=== PATIENT | female | born 1980 | race Caucasian/White ===

== ENCOUNTER 2016-11-15 20:50 | Emergency (ER) | payer OTHER ==
[2016-11-15 21:13] VITALS: BMI 34.1
--- NOTE | 2016-11-15 21:13 | PDOC ---
Rapid Medical Evaluation Time Seen by Provider: 11/15/16 21:07 Medical Evaluation: Allergies Allergy/AdvReac Type Severity Reaction Status Date / Time No Known Allergies Allergy Verified 08/29/16 06:45 11/15/16 21:10 36 yo F c/o urinary frequency/urgency with "my whole low back" pain with "fever "/did not take temp at home, "just felt hot". Took naprosyn at 2000hrs today. +H/O kidney infections
[2016-11-15 22:13] LABS: BASOPHIL 0.2 % (0-2.0); MCH 29.7 pg (25.7-33.7); MCHC 33.1 g/dl (32.0-36.0); MEAN CELL VOLUME 89.9 fl (80-96); MEAN PLT VOLUME 9.3 fl (7.5-11.1); NEUTROPHILS 85.7 % (42.8-82.8); PLATELET COUNT 241 K/MM3 (134-434); RDW 13.5 % (11.6-15.6); URINE APPEARANCE CLEAR; URINE BILIRUBIN NEGATIVE (NEGATIVE); URINE BLOOD NEGATIVE (NEGATIVE); URINE COLOR YELLOW; URINE GLUCOSE (UA) NEGATIVE (NEGATIVE); URINE KETONE NEGATIVE (NEGATIVE); URINE NITRITE NEGATIVE (NEGATIVE); URINE PROTEIN NEGATIVE (NEGATIVE); URINE UROBILINOGEN NEGATIVE E.U./dl (0.2-1.0); WHITE BLOOD COUNT 8.6 K/mm3 (4.0-10.0)
[2016-11-15 22:19] LABS: URINE LEUK ESTERASE 3+ (NEGATIVE)
[2016-11-15 22:21] LABS: URINE BACTERIA RARE /hpf (NONE SEEN); URINE HYALINE CAST 2 /lpf; URINE MUCUS RARE; URINE RBC 3 /hpf (0-3); URINE WBC 11 /hpf (3-5)
--- NOTE | 2016-11-15 22:25 | PDOC ---
History of Present Illness - General History Source: Patient Exam Limitations: No Limitations - History of Present Illness Initial Comments: 11/15/16 22:54 The patient is a 36 year old female, with a significant past medical history of cervical CA s/p total hysterectomy (03/2015), anemia and bilateral pyelonephritis , who presents to the emergency department with headache for a week. She reports that her headache is localized in the temporals bilaterally, that is moderate in severity, without radiation or modifying factors. She states that she had taken Tylenol during the week which mildly relieved her pain. She also states that she took Ibuprofen and Naproxen today which mildly relieved her pain. She also reports lower back pain that is associated with her chief complaint. She describes the pain as mild, without radiation or modifying factors. The patient denies chest pain, shortness of breath and dizziness. Denies fever, chills, nausea, vomit, diarrhea and constipation. Denies dysuria, frequency, urgency and hematuria. Allergies: None Past surgical history: Total Hysterectomy (03/2015) Social history: No alcohol, tobacco or drug use reported <Randall Gray - Last Filed: 11/16/16 00:38> <Roger Huerta - Last Filed: 11/16/16 00:58> - General Chief Complaint: SIRS, Suspected/Possible Stated Complaint: FEVER Time Seen by Provider: 11/15/16 21:07 Past History <Randall Gray - Last Filed: 11/16/16 00:38> - Past Medical History Anemia: Yes Asthma: No Cancer: Yes (cervical) Cardiac Disorders: No Diabetes: No HTN: No Seizures: No Thyroid Disease: No - Immunization History Immunization Up to Date: Yes - Psycho/Social/Smoking Cessation Hx Suicidal Ideation: No Smoking History: Never smoked Have you smoked in the past 12 months: No Hx Alcohol Use: No Drug/Substance Use Hx: No Substance Use Type: None Hx Substance Use Treatment: No <Roger Huerta - Last Filed: 11/16/16 00:58> - Past Medical History Allergies/Adverse Reactions: Allergies Allergy/AdvReac Type Severity Reaction Status Date / Time No Known Allergies Allergy Verified 11/15/16 21:11 Home Medications: Ambulatory Orders Sulfamethoxazole/Trimethoprim [Bactrim Ds -] 1 tab PO BID #28 tablet 11/16/16 Review of Systems - Review of Systems Able to Perform ROS?: Yes Comments:: 11/15/16 22:54 CONSTITUTIONAL: No fever, no chills, no fatigue EYES: No visual changes ENT: No ear pain, no sore throat CARDIOVASCULAR: No chest pain, no palpitations RESPIRATORY: No cough, no SOB GI: No abdominal pain, no nausea, no vomiting, no constipation, no diarrhea GENITOURINARY: No dysuria, no frequency, no hematuria MUSKULOSKELETAL: +Back pain. No joint pain, no myalgias SKIN: No rash NEURO: +Headache <Randall Gray - Last Filed: 11/16/16 00:38> *Physical Exam - Vital Signs Last Vital Signs Temp Pulse Resp BP Pulse Ox 99.5 F 110 H 18 113/57 100 11/15/16 21:11 11/15/16 21:11 11/15/16 21:11 11/15/16 21:11 11/15/16 21:11 - Physical Exam Comments: 11/15/16 22:55 CONSTITUTIONAL: Well-appearing; well-nourished; in no apparent distress HEAD: Normocephalic; atraumatic EYES: PERRL; EOM intact ENMT: External appears normal; normal oropharynx NECK: Supple; non-tender; no cervical lymphadenopathy CARD: Normal S1, S2; no murmurs, rubs, or gallops RESP: Normal chest excursion with respiration; breath sounds clear and equal bilaterally; no wheezes, rhonchi, or rales ABD: Soft, non-distended; non-tender; no palpable organomegaly, no palpable hernias EXT: Normal ROM in all four extremities; non-tender to palpation; distal pulses intact SKIN: Warm, dry, no rash NEURO: No focal neurological deficiencies. <Randall Gray - Last Filed: 11/16/16 00:38> - Vital Signs Last Vital Signs Temp Pulse Resp BP Pulse Ox 99.5 F 110 H 18 113/57 100 11/15/16 21:11 11/15/16 21:11 11/15/16 21:11 11/15/16 21:11 11/15/16 21:11 <Roger Huerta - Last Filed: 11/16/16 00:58> ED Treatment Course - LABORATORY CBC & Chemistry Diagram: 03/01/17 22:00 11/15/16 22:00 - ADDITIONAL ORDERS Additional order review: Laboratory Results 11/15/16 11/15/16 22:00 22:00 Sodium 141 Potassium 3.8 Chloride 104 Carbon Dioxide 26 Anion Gap 11 BUN 11 Creatinine 0.8 D Creat Clearance w eGFR > 60 Random Glucose 105 Calcium 9.1 Total Bilirubin 0.4 D AST 14 L ALT 17 Alkaline Phosphatase 86 Total Protein 8.0 Albumin 4.1 Urine Color Yellow Urine Appearance Clear Urine pH 5.0 D Ur Specific [place] 1.025 Urine Protein Negative Urine Glucose (UA) Negative Urine Ketones Negative Urine Blood Negative Urine Nitrite Negative Urine Bilirubin Negative Urine Urobilinogen Negative Ur Leukocyte Esterase 3+ H Urine RBC 3 Urine WBC 11 Ur Epithelial Cells Few Urine Bacteria Rare Hyaline Casts 2 Urine Mucus Rare Urine HCG, Qual Negative 11/15/16 22:00 RBC 4.27 MCV 89.9 MCHC 33.1 RDW 13.5 MPV 9.3 Neutrophils % 85.7 H Lymphocytes % 9.5 Monocytes % 4.6 Eosinophils % 0.0 D Basophils % 0.2 - RADIOLOGY Radiograph Interpretation: 11/16/16 00:38 Renal Ultrasound Reviewed by: Dr. Kun Whitney Impression: Normal kidneys - Medications Given in the ED: ED Medications Discontinued Medications Generic Name Dose Route Start Last Admin Trade Name Cecy PRN Reason Stop Dose Admin Ketorolac Tromethamine 30 mg 11/15/16 22:44 11/15/16 22:53 Toradol Injection - IVPUSH 11/15/16 22:45 30 mg ONCE ONE Administration Metoclopramide HCl 10 mg 11/15/16 22:44 11/15/16 22:53 Reglan Injection - IVPB 11/15/16 22:45 10 mg ONCE ONE Administration <Randall Gray - Last Filed: 11/16/16 00:38> - LABORATORY CBC & Chemistry Diagram: 11/15/16 22:00 11/15/16 22:00 - ADDITIONAL ORDERS Additional order review: Laboratory Results 11/15/16 22:00 Urine Color Yellow Urine Appearance Clear Urine pH 5.0 D Ur Specific [place] 1.025 Urine Protein Negative Urine Glucose (UA) Negative Urine Ketones Negative Urine Blood Negative Urine Nitrite Negative Urine Bilirubin Negative Urine Urobilinogen Negative Ur Leukocyte Esterase 3+ H Urine RBC 3 Urine WBC 11 Ur Epithelial Cells Few Urine Bacteria Rare Hyaline Casts 2 Urine Mucus Rare 11/15/16 22:00 RBC 4.27 MCV 89.9 MCHC 33.1 RDW 13.5 MPV 9.3 Neutrophils % 85.7 H Lymphocytes % 9.5 Monocytes % 4.6 Eosinophils % 0.0 D Basophils % 0.2 <Roger Huerta - Last Filed: 11/16/16 00:58> Medical Decision Making - Medical Decision Making 11/16/16 00:50 Patient is well-appearing 36-year-old female with history of cervical CVA ( status post total abdominal hysterectomy and salpingectomy) who presents with atraumatic occipital headache and bilateral flank pain (left greater than right) . Patient is afebrile, with normal stable vital signs. In the ER, patient is awake and alert, without evidence of meningismus, with clear lungs, soft nontender abdomen and bilateral CVA tenderness (left greater than right). There is no petechial rash. CBC/CMP within normal limit. Urinalysis reveals 9 WBCs per high-power field and leukoesterase positive. I suspect clinical pyelonephritis. Patient will receive IV ceftriaxone-1 g and will be discharged with by mouth Bactrim 14 days with outpatient PMD follow-up. <Roger Huerta - Last Filed: 11/16/16 00:58> *DC/Admit/Observation/Transfer - Attestations Scribe Attestion: 11/15/16 22:55 Documentation prepared by Randall Gray, acting as medical records tech for Roger Huerta MD <Randall Gray - Last Filed: 11/16/16 00:38> - Attestations Physician Attestion: 11/16/16 00:49 The documentation was prepared by the scribe under my direct supervision. I have reviewed the documentation which correctly represents the findings, medical decision-making and critical action taken by me. <Roger Huerta - Last Filed: 11/16/16 00:58> Diagnosis at time of Disposition: Pyelonephritis Headache Qualifiers: Headache type: unspecified Headache chronicity pattern: acute headache Intractability: not intractable Qualified Code(s): R51 - Headache - Discharge Dispostion Disposition: HOME Condition at time of disposition: Stable - Referrals Referrals: pmd, three-4 days [Other] - Patient Instructions Printed Discharge Instructions: DI for Kidney Infection
[2016-11-15] MEDS ORDERED: METOCLOPRAMIDE HCL INJECTION 10 MG/2 ML VIAL IVPB ONE (22:44)
[2016-11-15] MEDS ORDERED: SODIUM CHLORIDE 1,000 ML IV STA (22:44)
[2016-11-15] MEDS ORDERED: KETOROLAC TROMETHAMINE 30 MG/1 ML VIAL IVPUSH ONE (22:44)
[2016-11-15 22:46] LABS: ALBUMIN 4.1 g/dl (3.4-5.0); ANION GAP 11 (8-16); CALCIUM 9.1 mg/dL (8.5-10.1); CO2 26 mmol/L (21-32); CREATININE 0.8 mg/dL (0.55-1.02); GLUCOSE,RANDOM 105 mg/dL (74-106); SGOT/AST 14 U/L (15-37); SGPT/ALT 17 U/L (12-78)
[2016-11-15] MEDS ORDERED: METOCLOPRAMIDE HCL INJECTION 10 MG/2 ML VIAL ONE (22:46)
[2016-11-15] MEDS ORDERED: KETOROLAC TROMETHAMINE 30 MG/1 ML VIAL ONE (22:47)
[2016-11-15 22:51] LABS: ALK PHOS 86 U/L (45-117); BILIRUBIN,TOTAL 0.4 mg/dL (0.2-1.0)
[2016-11-16] MEDS ORDERED: CEFTRIAXONE 1 GM in DEXTROSE 5%-WATER - 50 ML IVPB ONE (00:43)
[2016-11-16] MEDS ORDERED: CEFTRIAXONE 50 ML ONE (00:47)
[2016-11-16 01:08] VITALS: BP 124/50; PULSE 64; TEMP 98.2
== END 2016-11-16 01:08 | disposition home or self-care (01) ==
LOC: JER 20:50
PROC: 3E03329 Introduction of Other Anti-infective into Peripheral Vein, Percutaneous Approach (ICD-10-PCS; principal; 2016-11-15)
PROC: 3E0333Z Introduction of Anti-inflammatory into Peripheral Vein, Percutaneous Approach (ICD-10-PCS; 2016-11-15)
PROC: 3E033GC Introduction of Other Therapeutic Substance into Peripheral Vein, Percutaneous Approach (ICD-10-PCS; 2016-11-15)
DX: N10 Acute pyelonephritis (principal); B95.4 Other streptococcus as the cause of diseases classified elsewhere; Z85.41 Personal history of malignant neoplasm of cervix uteri
CPT/HCPCS: 36415; 76775-TC; 80053; 81003; 81015; 84703; 85025; 87086; 87186; 87804; 99284-25

== ENCOUNTER 2017-03-19 05:39 | Emergency (ER) | payer OTHER ==
[2017-03-19 06:14] VITALS: BP 116/83; PULSE 78; TEMP 97.9; BMI 33.5
--- NOTE | 2017-03-19 07:57 | PDOC ---
History of Present Illness - General Chief Complaint: Pain Stated Complaint: ABDOMINAL PAIN Time Seen by Provider: 03/19/17 06:59 History Source: Patient Exam Limitations: No Limitations - History of Present Illness Initial Comments: 03/19/17 08:16 Ms. Benson is a 36F with a PMH of cervical CA s/p total hysterectomy in 2014, anemia, and b/l pyelo who presents to the ED today with abdominal pain. Her pain started at 4:45 this morning when she woke up for work. She describes the pain as a sharp, "contraction type" of pain that came out of nowhere and was present diffusely throughout her abdomen and chest. She states that the pain was a 10 this morning but now is a 2. She denies anything making the pain better or worse. The pain was previously diffuse but now is located in her R and L lower quadrants. Her LBM was yesterday at 2pm and this is normal for her. She is not sexually active. ROS+: felt nauseous yesterday, tried to vomit but denies vomiting. ROS-: fever, chills, weight change, night sweats, change in appetite, indigestion, rectal bleeding. She states she had a colonoscopy last year after her dx of anemia and they found something but she is unsure of the exact results. She states that this pain does not feel like her previous pyelo. PFHx: Non contributory PSHx: Abdominal hysterectomy 2014, ovaries remaining. Social: Denies smoking, drinking, recreational drugs Meds: None 03/19/17 08:30 Past History - Travel Traveled outside of the country in the last 30 days: No - Past Medical History Allergies/Adverse Reactions: Allergies Allergy/AdvReac Type Severity Reaction Status Date / Time No Known Allergies Allergy Verified 03/19/17 06:51 Home Medications: Ambulatory Orders NK [No Known Home Medication] 03/19/17 Anemia: Yes Asthma: No Cancer: Yes (cervical) Cardiac Disorders: No Diabetes: No HTN: No Seizures: No Thyroid Disease: No - Surgical History Other Surgical History: 03/19/17 07:58 Abd hysterectomy, pt still has ovaries - Reproductive History LMP Normal: No (s/p hysterectomy) Cervical CA: Yes - Immunization History Immunization Up to Date: Yes - Psycho/Social/Smoking Cessation Hx Suicidal Ideation: No Smoking History: Never smoked Have you smoked in the past 12 months: No Information on smoking cessation initiated: No Hx Alcohol Use: No Drug/Substance Use Hx: No Substance Use Type: None Hx Substance Use Treatment: No Review of Systems - Review of Systems Able to Perform ROS?: Yes Is the patient limited Malagasy proficient: No Constitutional: Yes: Weight Stable. No: Chills, Fever, Loss of Appetite, Night Sweats, Unintentional Wgt. Loss, Unexplained wgt Loss Respiratory: No: Shortness of Breath Cardiac (ROS): No: Chest Pain ABD/GI: Yes: Nausea, Other (Abd pain). No: Abdominal Distended, Abd. Pain w/ defecation, Constipated, Diarrhea, Poor Appetite, Rectal Bleeding, Vomiting, Indigestion : No: Burning, Dysuria, Discharge, Frequency, Incontinence, Pain, Urgency Hematologic/Lymphatic: Yes: Anemia *Physical Exam - Vital Signs Last Vital Signs Temp Pulse Resp BP Pulse Ox 97.9 F 78 18 116/83 99 03/19/17 06:12 03/19/17 06:12 03/19/17 06:12 03/19/17 06:12 03/19/17 06:12 - Physical Exam Comments: 03/19/17 08:02 General Appearance: Yes: Nourished, Appropriately Dressed, Apparent Distress, Obese. No: Alcohol on Breath Respiratory/Chest: positive: Lungs Clear, Normal Breath Sounds. negative: Chest Tender, Respiratory Distress, Labored Respiration, Decreased Breath Sounds Cardiovascular: positive: Regular Rhythm, Regular Rate, S1, S2. negative: Systolic Murmur Gastrointestinal/Abdominal: positive: Soft, Tenderness (Tenderness to deep palpation in LLQ and RLQ). negative: Tender, Increased Bowel Sounds, Decreased BS, Distended, Guarding, Rebound, Mass Extremity: negative: Pedal Edema Integumentary: positive: Normal Color, Warm. negative: Jaundice Neurologic: positive: Alert, Normal Mood/Affect ED Treatment Course - LABORATORY CBC & Chemistry Diagram: 03/19/17 07:41 03/19/17 07:41 Medical Decision Making - Medical Decision Making 03/19/17 08:11 03/19/17 08:25 The patient is a 36F with PMH of cervical CA s/p total hysterectomy, anemia, b/ l pyelo who presents to [facility] ED with diffuse abdominal pain for 4 hours which has since improved. The patient's lower quadrant tenderness may be suggestive of a UTI/cystitis, repeat pyelo infection, or inflammation of her ovaries. Gastroenteritis is also a ddx, with appendicitis being lowest on the differential. I have ordered a UA to r/o a UTI, CBC to look for an infectious process and to monitor her anemia, and CMP. Labs are pending. 03/19/17 09:06 Patient's CBC, CMP, and UA are within normal limits. UA had squamous cells and may indicate a dirty catch. Patient does not have any urinary symptoms and is comfortable with discharge without any medications. *DC/Admit/Observation/Transfer Diagnosis at time of Disposition: Generalized abdominal pain - Discharge Dispostion Disposition: HOME Condition at time of disposition: Improved Admit: No - Referrals Referrals: Humza Snell [Primary Care Provider] - - Patient Instructions Printed Discharge Instructions: DI for Abdominal Pain-Adult Additional Instructions: We were not able to find a source for your abdominal pain. If the pain worsens or continues, please come back to the ER. - Post Discharge Activity Work/School Note: Back to Work - Attestations Physician Attestion: 03/19/17 08:37 I, Dr. Alirio Quiroz, attest that this document has been prepared under my direction and personally reviewed by me in its entirety. I further attest, that it accurately reflects all work, treatment, procedures and medical decision -making performed by me.
[2017-03-19 08:22] LABS: URINE APPEARANCE CLEAR; URINE BILIRUBIN NEGATIVE (NEGATIVE); URINE BLOOD NEGATIVE (NEGATIVE); URINE COLOR LTYELLOW; URINE GLUCOSE (UA) NEGATIVE (NEGATIVE); URINE KETONE NEGATIVE (NEGATIVE); URINE NITRITE NEGATIVE (NEGATIVE); URINE PROTEIN NEGATIVE (NEGATIVE); URINE UROBILINOGEN NEGATIVE E.U./dl (0.2-1.0)
[2017-03-19 08:26] LABS: MCHC 33.7 g/dl (32.0-36.0); MEAN CELL VOLUME 92.2 fl (80-96); MEAN PLT VOLUME 8.9 fl (7.5-11.1); PLATELET COUNT 228 K/MM3 (134-434); RDW 13.5 % (11.6-15.6); WHITE BLOOD COUNT 4.6 K/mm3 (4.0-10.0)
--- NOTE | 2017-03-19 08:29 | PDOC ---
Attending Attestation - HPI HPI: 03/19/17 08:26 Pt presents to the ED complaining of the acute onset of diffuse abdominal pain without nausea, vomiting or fever. - Physicial Exam PE: 03/19/17 08:26 Abdomen is non tender on my exam. - Medical Decision Making 03/19/17 08:26 Given non tender abdomen and lack of associated symptoms, obstruction and appendicitis seems unlikely. I will check labs to rule out bilary disease, check UA to rule out UTI and likely discharge home if negative.
[2017-03-19 08:35] LABS: URINE LEUK ESTERASE 3+ (NEGATIVE)
[2017-03-19 08:42] LABS: ALBUMIN 3.8 g/dl (3.4-5.0); ALK PHOS 84 U/L (45-117); ANION GAP 8 (8-16); BILIRUBIN,TOTAL 0.4 mg/dL (0.2-1.0); CALCIUM 8.4 mg/dL (8.5-10.1); CO2 27 mmol/L (21-32); CREATININE 0.6 mg/dL (0.55-1.02); GLUCOSE,RANDOM 97 mg/dL (74-106); SGOT/AST 17 U/L (15-37); SGPT/ALT 24 U/L (12-78); TOT PROT 7.5 g/dl (6.4-8.2)
[2017-03-19 08:46] LABS: URINE MUCUS RARE; URINE RBC 1 /hpf (0-3); URINE WBC 13 /hpf (3-5)
== END 2017-03-19 09:36 | disposition home or self-care (01) ==
LOC: JER 05:39
DX: R10.84 Generalized abdominal pain (principal); Z85.41 Personal history of malignant neoplasm of cervix uteri
CPT/HCPCS: 36415; 80051; 80053; 81003; 81015; 85027; 99283-25

== ENCOUNTER 2017-06-03 05:29 | Emergency (ER) | payer OTHER ==
[2017-06-03 05:52] VITALS: BMI 36.2
--- NOTE | 2017-06-03 06:10 | PDOC ---
History of Present Illness - General History Source: Patient Exam Limitations: No Limitations - History of Present Illness Initial Comments: 06/03/17 06:26 A portion of this note was documented by scribe services under my direction. I have reviewed the details of the note, within reason, and agree with the documentation. The case summary and management plan written by me. Case discussed in detail with oncoming Emergency Physician including history, physical exam and ancillary studies. Oncoming Emergency Physician has assumed care for the patient and will complete the evaluation and treatment. Patient is aware of the plan. Pt is clinically unchanged and stable. labs all pending. <Elias Lei I - Last Filed: 06/03/17 06:26> - General History Source: Patient Exam Limitations: No Limitations - History of Present Illness Initial Comments: 06/03/17 06:33 HISTORY OF PRESENT ILLNESS The patient is a 36 year old female with a significant PMH of cervical CA s/p total hysterectomy (03/2015), anemia, and bilateral pyelonephritis who presents to the emergency department with lower back pain and diarrhea beginning approximately 1 week ago. The patient describes the pain as localized to the left and right side of her lower back, but not the middle. The patient notes that she was in intense pain about 5-6 days ago with subjective fever and could not get up from her bed. The patient notes that her last episode of diarrhea was this morning. The patient notes similar back pain when she was diagnosed with bilateral pyelonephritis. The patient denies chest pain, shortness of breath, headache and dizziness. Denies chills, nausea, vomit, and constipation. Denies dysuria, frequency, urgency and hematuria. PAST MEDICAL HISTORY: Cervical cancer, Anemia, Bilateral pyelonephritis. PAST SURGICAL HISTORY: Hysterectomy (03/2015). FAMILY HISTORY: No pertinent history reported. SOCIAL HISTORY: Pt lives with family and is employed. MEDICATIONS: Reviewed. ALLERGIES: NKA REVIEW OF SYSTEMS General: No fevers or chills, no weakness, no weight loss HEENT: No change in vision. No sore throat,. No ear pain CardioVascular: No chest pain or shortness of breath Respiratory:No cough, or wheezing. Gastrointestinal: (+) Diarrhea. No nausea, vomiting, or constipation, No rectal bleeding Genitourinary: No dysuria, hematuria, or frequency Musculoskeletal: (+) Lower back pain, localized to either side. No joint pain or swelling Neurologic: No headache, vertigo, dizziness or loss of consciousness Psychiatric: nor depression Skin: No rashes or easy bruising Endocrine: no increased thirst or abnormal weight change Allergic: no skin or latex allergy All other systems reviewed and normal PHYSICAL EXAM General: Well-nourished well-developed individual, no acute distress HEENT: Throat: Normal, tonsils normal, no erythema or exudate Neck: Supple, no meningeal signs, no lymphadenopathy Eyes::Pupils equal reactive and round, extraocular motion intact Chest: Nontender to palpation Cardiac: S1-S2 normal, regular rate and rhythm, no murmurs rubs or gallops Respiratory: Lungs clear to auscultation bilateral Back: (+) Positive bilateral CVA tenderness with positive lower back tenderness on palpation. Abdomen: Soft, nondistended, normal bowel sounds, nontender to palpation diffusely Extremities: Warm, dry, no cyanosis, clubbing, or edema Skin: No rashes Neuro: Alert and oriented x3, nonfocal exam, grossly intact, normal gait Psych: Normal mood and affect <Mike Robert - Last Filed: 06/03/17 06:33> - General Chief Complaint: Pain Stated Complaint: BACK PAIN/DIARRHEA Time Seen by Provider: 06/03/17 06:09 Past History - Past Medical History Anemia: Yes Asthma: No Cancer: Yes (cervical) Cardiac Disorders: No Diabetes: No HTN: No Seizures: No Thyroid Disease: No - Reproductive History Cervical CA: Yes - Immunization History Immunization Up to Date: Yes - Psycho/Social/Smoking Cessation Hx Suicidal Ideation: No Smoking History: Never smoked Have you smoked in the past 12 months: No Information on smoking cessation initiated: No Hx Alcohol Use: No Drug/Substance Use Hx: No Substance Use Type: None Hx Substance Use Treatment: No <Elias Lei I - Last Filed: 06/03/17 06:26> <Mike Robert - Last Filed: 06/03/17 06:33> - Past Medical History Allergies/Adverse Reactions: Allergies Allergy/AdvReac Type Severity Reaction Status Date / Time No Known Allergies Allergy Verified 06/03/17 05:35 Home Medications: Ambulatory Orders NK [No Known Home Medication] 03/19/17 *Physical Exam - Vital Signs Last Vital Signs Temp Pulse Resp BP Pulse Ox 98.5 F 84 20 139/68 97 06/03/17 05:47 06/03/17 05:47 06/03/17 05:47 06/03/17 05:47 06/03/17 05:47 <Elias Lei I - Last Filed: 06/03/17 06:26> - Vital Signs Last Vital Signs Temp Pulse Resp BP Pulse Ox 98.5 F 84 20 139/68 97 06/03/17 05:47 06/03/17 05:47 06/03/17 05:47 06/03/17 05:47 06/03/17 05:47 <Mike Robert - Last Filed: 06/03/17 06:33> ED Treatment Course - LABORATORY CBC & Chemistry Diagram: 06/03/17 06:05 06/03/17 06:05 <Elias Lei I - Last Filed: 06/03/17 06:26> - LABORATORY CBC & Chemistry Diagram: 06/03/17 06:05 06/03/17 06:05 - ADDITIONAL ORDERS Additional order review: 06/03/17 06:05 RBC 4.15 MCV 90.7 MCHC 34.6 RDW 13.3 MPV 9.0 Neutrophils % 73.8 Lymphocytes % 14.1 D Monocytes % 9.4 D Eosinophils % 2.5 D Basophils % 0.2 - Medications Given in the ED: ED Medications Discontinued Medications Generic Name Dose Route Start Last Admin Trade Name Onurq PRN Reason Stop Dose Admin Ketorolac Tromethamine 30 mg 06/03/17 06:23 06/03/17 06:30 Toradol Injection - IVPUSH 06/03/17 06:24 30 mg ONCE ONE Administration Loperamide HCl 4 mg 06/03/17 06:14 06/03/17 06:27 Imodium - PO 06/03/17 06:15 4 mg ONCE ONE Administration <Mike Robert - Last Filed: 06/03/17 06:33> *DC/Admit/Observation/Transfer <Elias Lei I - Last Filed: 06/03/17 06:26> - Attestations Scribe Attestion: 06/03/17 06:33 Documentation prepared by Mike Robert, acting as medical doctor for Elias Lei MD. <Mike Robert - Last Filed: 06/03/17 06:33> Diagnosis at time of Disposition: Acute diarrhea - Referrals Referrals: Humza Snell [Primary Care Provider] -
[2017-06-03] MEDS ORDERED: SODIUM CHLORIDE 1,000 ML IV ONE (06:12)
[2017-06-03] MEDS ORDERED: LOPERAMIDE HCL 2 MG CAPSULE PO ONE (06:14)
[2017-06-03] MEDS ORDERED: KETOROLAC TROMETHAMINE 30 MG/1 ML VIAL IVPUSH ONE (06:23)
[2017-06-03] MEDS ORDERED: LOPERAMIDE HCL 2 MG CAPSULE ONE (06:23)
[2017-06-03 06:27] LABS: BASOPHIL 0.2 % (0-2.0); EOSINOPHIL 2.5 % (0-4.5); MCH 31.4 pg (25.7-33.7); MCHC 34.6 g/dl (32.0-36.0); MEAN CELL VOLUME 90.7 fl (80-96); NEUTROPHILS 73.8 % (42.8-82.8); PLATELET COUNT 261 K/MM3 (134-434); RDW 13.3 % (11.6-15.6); WHITE BLOOD COUNT 4.7 K/mm3 (4.0-10.0)
[2017-06-03] MEDS ORDERED: KETOROLAC TROMETHAMINE 30 MG/1 ML VIAL ONE (06:28)
[2017-06-03 06:40] LABS: URINE APPEARANCE SLCLOUDY; URINE BILIRUBIN NEGATIVE (NEGATIVE); URINE BLOOD NEGATIVE (NEGATIVE); URINE COLOR YELLOW; URINE GLUCOSE (UA) NEGATIVE (NEGATIVE); URINE KETONE NEGATIVE (NEGATIVE); URINE NITRITE NEGATIVE (NEGATIVE); URINE PROTEIN NEGATIVE (NEGATIVE); URINE UROBILINOGEN NEGATIVE mg/dL (0.2-1.0)
[2017-06-03 06:44] LABS: URINE LEUK ESTERASE 3+ (NEGATIVE)
[2017-06-03 06:47] LABS: URINE MUCUS RARE; URINE RBC 2 /hpf (0-3); URINE WBC 17 /hpf (3-5)
[2017-06-03] MEDS ORDERED: CEFTRIAXONE 1 GM in DEXTROSE 5%-WATER - 50 ML IVPB ONE (06:55)
[2017-06-03] MEDS ORDERED: CEFTRIAXONE 50 ML ONE (07:03)
[2017-06-03 07:04] LABS: ALBUMIN 3.7 g/dl (3.4-5.0); ALK PHOS 71 U/L (45-117); ANION GAP 9 (8-16); BILIRUBIN,TOTAL 0.5 mg/dL (0.2-1.0); CALCIUM 9.1 mg/dL (8.5-10.1); CO2 24 mmol/L (21-32); CREATININE 0.7 mg/dL (0.55-1.02); GLUCOSE,RANDOM 107 mg/dL (74-106); SGPT/ALT 45 U/L (12-78); TOT PROT 7.8 g/dl (6.4-8.2)
[2017-06-03 07:07] LABS: SGOT/AST 43 U/L (15-37)
--- NOTE | 2017-06-03 08:44 | PDOC ---
*Physical Exam - Vital Signs Last Vital Signs Temp Pulse Resp BP Pulse Ox 98.5 F 84 20 139/68 97 06/03/17 05:47 06/03/17 05:47 06/03/17 05:47 06/03/17 05:47 06/03/17 05:47 ED Treatment Course - LABORATORY CBC & Chemistry Diagram: 06/03/17 06:05 06/03/17 06:05 - ADDITIONAL ORDERS Additional order review: Laboratory Results 06/03/17 06/03/17 06:05 06:05 Sodium 140 Potassium 4.6 Chloride 107 Carbon Dioxide 24 Anion Gap 9 BUN 14 Creatinine 0.7 Creat Clearance w eGFR > 60 Random Glucose 107 H Calcium 9.1 Total Bilirubin 0.5 D AST 43 H D ALT 45 D Alkaline Phosphatase 71 Total Protein 7.8 Albumin 3.7 Urine Color Yellow Urine Appearance Slcloudy Urine pH 5.0 Urine Protein Negative Urine Glucose (UA) Negative Urine Ketones Negative Urine Blood Negative Urine Nitrite Negative Urine Bilirubin Negative Urine Urobilinogen Negative Urine RBC 2 Urine WBC 17 Ur Epithelial Cells Few Urine Mucus Rare 06/03/17 06:05 RBC 4.15 MCV 90.7 MCHC 34.6 RDW 13.3 MPV 9.0 Neutrophils % 73.8 Lymphocytes % 14.1 D Monocytes % 9.4 D Eosinophils % 2.5 D Basophils % 0.2 - Medications Given in the ED: ED Medications Discontinued Medications Generic Name Dose Route Start Last Admin Trade Name Freq PRN Reason Stop Dose Admin Sodium Chloride 1,000 mls @ 1,000 mls/hr 06/03/17 06:12 06/03/17 06:20 Normal Saline - IV 06/03/17 07:11 1,000 mls/hr ASDIR ONE Administration Ceftriaxone Sodium 1 gm/ 50 mls @ 100 mls/hr 06/03/17 06:55 06/03/17 07:06 Dextrose IVPB 06/03/17 07:24 100 mls/hr ONCE ONE Administration Ketorolac Tromethamine 30 mg 06/03/17 06:23 06/03/17 06:30 Toradol Injection - IVPUSH 06/03/17 06:24 30 mg ONCE ONE Administration Loperamide HCl 4 mg 06/03/17 06:14 06/03/17 06:27 Imodium - PO 06/03/17 06:15 4 mg ONCE ONE Administration Medical Decision Making - Medical Decision Making 06/03/17 08:40 CBC,CMP WBC 4.7 K/mm3 (4.0-10.0) 06/03/17 06:05 RBC 4.15 M/mm3 (3.60-5.2) 06/03/17 06:05 Hgb 13.0 GM/dL (10.7-15.3) 06/03/17 06:05 Hct 37.7 % (32.4-45.2) 06/03/17 06:05 MCV 90.7 fl (80-96) 06/03/17 06:05 MCH 31.4 pg (25.7-33.7) 06/03/17 06:05 MCHC 34.6 g/dl (32.0-36.0) 06/03/17 06:05 RDW 13.3 % (11.6-15.6) 06/03/17 06:05 Plt Count 261 K/MM3 (134-434) 06/03/17 06:05 MPV 9.0 fl (7.5-11.1) 06/03/17 06:05 Neutrophils % 73.8 % (42.8-82.8) 06/03/17 06:05 Lymphocytes % 14.1 % (8-40) D 06/03/17 06:05 Monocytes % 9.4 % (3.8-10.2) D 06/03/17 06:05 Eosinophils % 2.5 % (0-4.5) D 06/03/17 06:05 Basophils % 0.2 % (0-2.0) 06/03/17 06:05 Sodium 140 mmol/L (136-145) 06/03/17 06:05 Potassium 4.6 mmol/L (3.5-5.1) 06/03/17 06:05 Chloride 107 mmol/L (98-107) 06/03/17 06:05 Carbon Dioxide 24 mmol/L (21-32) 06/03/17 06:05 Anion Gap 9 (8-16) 06/03/17 06:05 BUN 14 mg/dL (7-18) 06/03/17 06:05 Creatinine 0.7 mg/dL (0.55-1.02) 06/03/17 06:05 Creat Clearance w eGFR > 60 (>60) 06/03/17 06:05 Random Glucose 107 mg/dL (74-106) H 06/03/17 06:05 Calcium 9.1 mg/dL (8.5-10.1) 06/03/17 06:05 Total Bilirubin 0.5 mg/dL (0.2-1.0) D 06/03/17 06:05 AST 43 U/L (15-37) H D 06/03/17 06:05 ALT 45 U/L (12-78) D 06/03/17 06:05 Alkaline Phosphatase 71 U/L (45-117) 06/03/17 06:05 Total Protein 7.8 g/dl (6.4-8.2) 06/03/17 06:05 Albumin 3.7 g/dl (3.4-5.0) 06/03/17 06:05 Urine Test Results Urine Color Yellow 06/03/17 06:05 Urine Appearance Slcloudy 06/03/17 06:05 Urine pH 5.0 (5.0-8.0) 06/03/17 06:05 Urine Protein Negative (NEGATIVE) 06/03/17 06:05 Urine Glucose (UA) Negative (NEGATIVE) 06/03/17 06:05 Urine Ketones Negative (NEGATIVE) 06/03/17 06:05 Urine Blood Negative (NEGATIVE) 06/03/17 06:05 Urine Nitrite Negative (NEGATIVE) 06/03/17 06:05 Urine Bilirubin Negative (NEGATIVE) 06/03/17 06:05 Urine RBC 2 /hpf (0-3) 06/03/17 06:05 Urine WBC 17 /hpf (3-5) 06/03/17 06:05 Ur Epithelial Cells Few /hpf (FEW) 06/03/17 06:05 Urine Mucus Rare 06/03/17 06:05 Labs notable for pyuria, otherwise unremarkable. Pt with symptoms consistent with pyelo. Given ceftriaxone in ED, will DC with course of levaquin. Pt to f/u with PMD on sunday. Reassessed - pt feels better after meds. Tolerating PO. Ambulatory with steady gait. Clinically stable for DC. *DC/Admit/Observation/Transfer Diagnosis at time of Disposition: Acute diarrhea, Pyelonephritis - Discharge Dispostion Disposition: HOME - Prescriptions Prescriptions: Levofloxacin [Levaquin] 750 mg PO DAILY #7 tab - Referrals Referrals: Humza Snell [Primary Care Provider] - - Patient Instructions Printed Discharge Instructions: DI for Kidney Infection, Diarrhea Additional Instructions: Take the antibiotics as prescribed to treat your kidney infection. Follow up with your primary doctor on Sunday. Return to the ER if you experience worsening pain, vomiting, fevers, or any other concerning symptoms. - Post Discharge Activity - Attestations Physician Attestion: 06/03/17 08:44 I, Dr. Micha Martinez MD, attest that this document has been prepared under my direction and personally reviewed by me in its entirety. I further attest, that it accurately reflects all work, treatment, procedures and medical decision -making performed by me.
[2017-06-03 09:12] VITALS: BP 130/75; PULSE 72; TEMP 98.2
[2017-06-03] MEDS ORDERED: LEVOFLOXACIN 750 MG TABLET PO SCH (10:00)
== END 2017-06-03 09:13 | disposition home or self-care (01) ==
LOC: JER 05:29
DX: N12 Tubulo-interstitial nephritis, not specified as acute or chronic (principal); R19.7 Diarrhea, unspecified; Z85.41 Personal history of malignant neoplasm of cervix uteri; Z90.710 Acquired absence of both cervix and uterus
CPT/HCPCS: 36415; 80053; 81003; 81015; 85025; 87077; 87086; 99283-25

== ENCOUNTER 2017-09-27 20:39 | Emergency (ER) | payer OTHER ==
[2017-09-27 20:51] VITALS: BP 113/57; PULSE 77; TEMP 98.3; BMI 34.1
--- NOTE | 2017-09-27 20:54 | PDOC ---
Rapid Medical Evaluation Time Seen by Provider: 09/27/17 20:48 Medical Evaluation: Allergies Allergy/AdvReac Type Severity Reaction Status Date / Time No Known Allergies Allergy Verified 06/03/17 05:35 09/27/17 20:48 The patient presents with a chief complaint of: LUQ pain. Since Sunday. [facility] and had CT done. Diagnosed with Diverticulitis. Drinking clear liquids. Increased pain today. States medication is not working. On amoxicillin for diverticulitis I have performed a brief in-person evaluation of this patient; Pertinent physical exam findings: TTP of LLQ with light and deep palpation, soft. Afebrile I have ordered the following: CBC, CMP, UA, UC, urine preg, Abdominal x-ray The patient will proceed to the ED for further evaluation. Discharge Disposition - Referrals Referrals: Ernesto De La Garza MD [Primary Care Provider] - - Patient Instructions - Post Discharge Activity
[2017-09-27 21:41] LABS: URINE APPEARANCE SLCLOUDY; URINE BILIRUBIN NEGATIVE (NEGATIVE); URINE BLOOD NEGATIVE (NEGATIVE); URINE COLOR YELLOW; URINE GLUCOSE (UA) NEGATIVE (NEGATIVE); URINE KETONE TRACE (NEGATIVE); URINE NITRITE NEGATIVE (NEGATIVE); URINE PROTEIN NEGATIVE (NEGATIVE); URINE UROBILINOGEN NEGATIVE mg/dL (0.2-1.0)
[2017-09-27 21:42] LABS: BASO % 0.6 % (0-2.0); EOS % 1.2 % (0-4.5); HEMATOCRIT 37.6 % (32.4-45.2); HEMOGLOBIN 12.5 GM/dL (10.7-15.3); LYMPH % 34.2 % (8-40); MCH 30.6 pg (25.7-33.7); MCHC 33.2 g/dl (32.0-36.0); MEAN PLT VOLUME 9.7 fl (7.5-11.1); MONO % 8.7 % (3.8-10.2); NEUT % 55.3 % (42.8-82.8); PLATELET COUNT 250 K/MM3 (134-434); RBC 4.09 M/mm3 (3.60-5.2); RDW 13.3 % (11.6-15.6); WHITE BLOOD COUNT 4.9 K/mm3 (4.0-10.0)
[2017-09-27 21:53] LABS: URINE LEUK ESTERASE 3+ (NEGATIVE)
[2017-09-27 22:12] LABS: ALBUMIN 3.8 g/dl (3.4-5.0); ALK PHOS 72 U/L (45-117); ANION GAP 4 (8-16); BILIRUBIN,TOTAL 0.2 mg/dL (0.2-1.0); BLOOD UREA NITROGEN 17 mg/dL (7-18); CALCIUM 8.9 mg/dL (8.5-10.1); CHLORIDE 106 mmol/L (98-107); CO2 30 mmol/L (21-32); CREATININE 0.8 mg/dL (0.55-1.02); GLUCOSE,RANDOM 98 mg/dL (74-106); POTASSIUM 3.8 mmol/L (3.5-5.1); SGOT/AST 10 U/L (15-37); SGPT/ALT 19 U/L (12-78); SODIUM 140 mmol/L (136-145); TOT PROT 7.5 g/dl (6.4-8.2)
--- NOTE | 2017-09-27 23:17 | PDOC ---
*Physical Exam - Vital Signs Last Vital Signs Temp Pulse Resp BP Pulse Ox 98.3 F 77 18 113/57 99 09/27/17 20:50 09/27/17 20:50 09/27/17 20:50 09/27/17 20:50 09/27/17 20:50 ED Treatment Course - LABORATORY CBC & Chemistry Diagram: 09/27/17 21:25 09/27/17 21:25 - ADDITIONAL ORDERS Additional order review: Laboratory Results 09/27/17 09/27/17 09/27/17 21:25 21:25 21:25 Sodium 140 Potassium 3.8 Chloride 106 Carbon Dioxide 30 D Anion Gap 4 L BUN 17 Creatinine 0.8 Creat Clearance w eGFR > 60 Random Glucose 98 Calcium 8.9 Total Bilirubin 0.2 D AST 10 L D ALT 19 D Alkaline Phosphatase 72 Total Protein 7.5 Albumin 3.8 Urine Color Yellow Urine Appearance Slcloudy Urine pH 5.0 Ur Specific [place] 1.024 Urine Protein Negative Urine Glucose (UA) Negative Urine Ketones Trace H Urine Blood Negative Urine Nitrite Negative Urine Bilirubin Negative Urine Urobilinogen Negative Ur Leukocyte Esterase 3+ H Urine HCG, Qual Negative 09/27/17 21:25 RBC 4.09 MCV 92.0 MCHC 33.2 RDW 13.3 MPV 9.7 Neutrophils % 55.3 D Lymphocytes % 34.2 D Monocytes % 8.7 Eosinophils % 1.2 Basophils % 0.6 Medical Decision Making - Medical Decision Making 09/27/17 23:17 agree with care from GERARDO Monsivais *DC/Admit/Observation/Transfer Diagnosis at time of Disposition: Diverticulitis - Discharge Dispostion Disposition: HOME Condition at time of disposition: Stable - Prescriptions Prescriptions: Ciprofloxacin [Cipro -] 500 mg PO Q12H #14 tablet - Referrals Referrals: Ernesto De La Garza MD [Primary Care Provider] - - Patient Instructions Printed Discharge Instructions: DI for Diverticulitis Additional Instructions: Continue taking Vicodin for pain as previously prescribed. Stop taking the Augmentin prescribed at other hospital. You have been prescribed ciprofloxacin 500 mg to be taken twice a day for the next 7 days. Make an appointment with Dr. De La Garza for evaluation within the next 4 days. Return to emergency department for worsening pain, blood in her stool, fevers, chills, or any other concerns. Thank you very much for choosing us to provide your emergent healthcare needs. - Post Discharge Activity Forms/Work/School Notes: Back to Work
--- NOTE | 2017-09-27 23:27 | PDOC ---
History of Present Illness - General Chief Complaint: Pain Stated Complaint: ABD PAIN Time Seen by Provider: 09/27/17 20:48 History Source: Patient Exam Limitations: No Limitations - History of Present Illness Travel History: No Initial Comments: 09/27/17 23:21 This is a 36 yo woman with history of cervical cancer status post total abdominal hysterectomy in 2014 who presents to the emergency department with left-sided abdominal pain for 4 days. Patient states she was seen and evaluated at another hospital on September 23 and was diagnosed with diverticulitis. She was started on Augmentin 875 mg twice a day. Patient is returning now with intermittent pain that at its worst has not improved. Patient is able to tolerate by mouth's without difficulty and has not had any nausea or vomiting. Patient reports having loose watery green stools for the past 4 days. She denies fevers, chills, nausea, vomiting. PMD: Ernesto De La Garza PMH: Cervical cancer PSH: [facility] 2014 NKDA Past History - Past Medical History Allergies/Adverse Reactions: Allergies Allergy/AdvReac Type Severity Reaction Status Date / Time No Known Allergies Allergy Verified 09/27/17 20:49 Home Medications: Ambulatory Orders Levofloxacin [Levaquin] 750 mg PO DAILY #7 tab 06/03/17 Ciprofloxacin [Cipro -] 500 mg PO Q12H #14 tablet 09/28/17 Anemia: Yes Asthma: No Cancer: Yes (cervical) Cardiac Disorders: No COPD: No Diabetes: No HTN: No Seizures: No Thyroid Disease: No - Reproductive History Cervical CA: Yes - Immunization History Immunization Up to Date: Yes - Suicide/Smoking/Psychosocial Hx Smoking History: Never smoked Have you smoked in the past 12 months: No Hx Alcohol Use: No Drug/Substance Use Hx: No Substance Use Type: None Hx Substance Use Treatment: No *Physical Exam - Vital Signs Last Vital Signs Temp Pulse Resp BP Pulse Ox 98.3 F 77 18 113/57 99 09/27/17 20:50 09/27/17 20:50 09/27/17 20:50 09/27/17 20:50 09/27/17 20:50 - Physical Exam General Appearance: Yes: Appropriately Dressed. No: Apparent Distress HEENT: positive: Normal ENT Inspection Neck: positive: Trachea midline, Supple Respiratory/Chest: positive: Lungs Clear, Normal Breath Sounds. negative: Respiratory Distress, Accessory Muscle Use Cardiovascular: positive: Regular Rhythm, Regular Rate, S1, S2. negative: Edema , Murmur Gastrointestinal/Abdominal: positive: Normal Bowel Sounds, Tender (left upper and lower quadrants) Musculoskeletal: positive: Normal Inspection. negative: CVA Tenderness Extremity: positive: Normal Capillary Refill, Normal Inspection, Normal Range of Motion Integumentary: positive: Normal Color, Dry, Warm Neurologic: positive: grade tamper II-XII NML intact, Fully Oriented, Alert, Normal Mood/ Affect, Normal Response, Motor Strength 01/19 ED Treatment Course - LABORATORY CBC & Chemistry Diagram: 09/27/17 21:25 09/27/17 21:25 - ADDITIONAL ORDERS Additional order review: Laboratory Results 09/27/17 09/27/17 09/27/17 21:25 21:25 21:25 Sodium 140 Potassium 3.8 Chloride 106 Carbon Dioxide 30 D Anion Gap 4 L BUN 17 Creatinine 0.8 Creat Clearance w eGFR > 60 Random Glucose 98 Calcium 8.9 Total Bilirubin 0.2 D AST 10 L D ALT 19 D Alkaline Phosphatase 72 Total Protein 7.5 Albumin 3.8 Urine Color Yellow Urine Appearance Slcloudy Urine pH 5.0 Ur Specific [place] 1.024 Urine Protein Negative Urine Glucose (UA) Negative Urine Ketones Trace H Urine Blood Negative Urine Nitrite Negative Urine Bilirubin Negative Urine Urobilinogen Negative Ur Leukocyte Esterase 3+ H Urine HCG, Qual Negative 09/27/17 21:25 RBC 4.09 MCV 92.0 MCHC 33.2 RDW 13.3 MPV 9.7 Neutrophils % 55.3 D Lymphocytes % 34.2 D Monocytes % 8.7 Eosinophils % 1.2 Basophils % 0.6 Medical Decision Making - Medical Decision Making 09/27/17 23:24 A/P: This is a 36 yo woman with history of cervical cancer status post total abdominal hysterectomy in 2014 who presents to the emergency department with left-sided abdominal pain for 4 days. Patient states she was seen and evaluated at another hospital on September 23 and was diagnosed with diverticulitis. She was started on Augmentin 875 mg twice a day. Patient is returning now with intermittent pain that at its worst has not improved. Patient is able to tolerate by mouth's without difficulty and has not had any nausea or vomiting. Patient reports having loose watery green stools for the past 4 days. She denies fevers, chills, nausea, vomiting. Lungs clear to auscultation bilaterally. Respirations even and unlabored. RRR. S1 and S2 present. No murmur, rub or gallop noted. Abdomen soft but tender to light and deep palpation in left upper and lower quadrants. By Sunday abdomen soft nontender nondistended. Patient reports compliance with medications. Differential diagnoses include consultative versus uncomplicated diverticulitis Labs were obtained in rapid medical evaluation. Abdominal x-ray ordered. All lab testing is benign with the exception of +3 leukoesterase. Vital signs within normal limits. His likely the patient has been subtherapeutic on Augmentin as usual dosing for diverticulitis is 3 times a day. 09/28/17 01:11 Abdominal x-ray: Nonobstructive bowel gas pattern. No gross subdiaphragmatic free intraperitoneal air. Given x-ray findings and patient now currently feels better, I will discharge the patient on Cipro 500 mg twice a day for the next 7 days. I discussed the physical exam findings, ancillary test results and final diagnoses with the patient. I answered all of the patient's questions. The patient was satisfied with the care received and felt comfortable with the discharge plan and treatment plan. The patient will call Dr. De La Garza within 96 hours to arrange follow-up and will return to the Emergency Department with any new, persistent or worsening symptoms. *DC/Admit/Observation/Transfer Diagnosis at time of Disposition: Diverticulitis - Discharge Dispostion Disposition: HOME Condition at time of disposition: Stable Admit: No - Prescriptions Prescriptions: Ciprofloxacin [Cipro -] 500 mg PO Q12H #14 tablet - Referrals Referrals: Ernesto De La Garza MD [Primary Care Provider] - - Patient Instructions Additional Instructions: Continue taking Vicodin for pain as previously prescribed. Stop taking the Augmentin prescribed at other hospital. You have been prescribed ciprofloxacin 500 mg to be taken twice a day for the next 7 days. Make an appointment with Dr. De La Garza for evaluation within the next 4 days. Return to emergency department for worsening pain, blood in her stool, fevers, chills, or any other concerns. Thank you very much for choosing us to provide your emergent healthcare needs. - Post Discharge Activity Forms/Work/School Notes: Back to Work
[2017-09-28 00:13] LABS: EPI CELLS MODERATE /HPF (FEW); URINE MUCUS RARE
== END 2017-09-28 01:38 | disposition home or self-care (01) ==
LOC: JER 20:39
DX: K57.92 Diverticulitis of intestine, part unspecified, without perforation or abscess without bleeding (principal); Z85.41 Personal history of malignant neoplasm of cervix uteri; Z90.710 Acquired absence of both cervix and uterus
CPT/HCPCS: 36415; 74019-TC; 80053; 81003; 81015; 84703; 85025; 87086; 99281-25

== ENCOUNTER 2018-01-15 04:07 | Emergency (ER) | payer OTHER ==
--- NOTE | 2018-01-15 04:15 | PDOC ---
History of Present Illness <Micha Martinez - Last Filed: 01/15/18 06:30> - General History Source: Patient Exam Limitations: No Limitations - History of Present Illness Initial Comments: 01/15/18 04:49 Pt is a 37 yo F with PMHx of cervical cancer s/p CALIXTO and diverticulitis ( diagnosed in [facility] with CT), now presenting with recurrent worsening LLQ pain x 4 months. Pain is intermittent, cramping and non radiating 10/10, with no known relieving factors. She has been on dicyclomine without relief. No associated nausea/vomiting, no fever, no bloody stools. Pt has been having constipation, passing stool every every other day rather than daily. Yesterday, she followed up with her GI at [address] and was advised to present at the ED if the pain persisted to have a CT scan. No dysuria, no hematuria, no cough or SOB. 01/15/18 05:05 Timing/Duration: intermittent Severity: moderate Associated Symptoms: denies: chest pain, cough, diaphoresis, fever/chills, nausea/vomiting, syncope, weakness <QuentinComfort I - Last Filed: 01/15/18 06:34> - General Stated Complaint: ABD PAIN Time Seen by Provider: 01/15/18 04:14 Past History <Micha Martinez - Last Filed: 01/15/18 06:30> - Past Medical History Anemia: Yes Asthma: No Cancer: Yes (cervical) Cardiac Disorders: No COPD: No Diabetes: No HTN: No Seizures: No Thyroid Disease: No - Surgical History Abdominal Surgery: Yes (CALIXTO) - Reproductive History Cervical CA: Yes - Immunization History Immunization Up to Date: Yes - Suicide/Smoking/Psychosocial Hx Smoking History: Never smoked Have you smoked in the past 12 months: No Hx Alcohol Use: No Drug/Substance Use Hx: No Substance Use Type: None Hx Substance Use Treatment: No <Agaba,Comfort I - Last Filed: 01/15/18 06:34> - Past Medical History Allergies/Adverse Reactions: Allergies Allergy/AdvReac Type Severity Reaction Status Date / Time No Known Allergies Allergy Verified 01/15/18 04:18 Home Medications: Ambulatory Orders Dicyclomine HCl [Bentyl -] 10 mg PO DAILY 01/15/18 Review of Systems - Review of Systems Constitutional: No: Chills, Diaphoresis, Fever, Loss of Appetite, Weakness, Weight Stable HEENTM: No: Nose Congestion, Throat Pain Respiratory: No: Cough, Orthopnea, Shortness of Breath, Stridor, Wheezing Cardiac (ROS): No: Chest Pain, Edema ABD/GI: Yes: Constipated, Abdominal cramping. No: Abdominal Distended, Rectal Bleeding, Vomiting, Tarry Stools : No: Burning, Dysuria, Discharge, Frequency, Urgency Musculoskeletal: No: Gout, Joint Pain Neurological: No: Headache, Numbness, Paresthesia, Tremors <Agaba,Comfort I - Last Filed: 01/15/18 06:34> *Physical Exam - Vital Signs Last Vital Signs Temp Pulse Resp BP Pulse Ox 97.8 F 74 18 118/72 100 01/15/18 04:13 01/15/18 04:13 01/15/18 04:13 01/15/18 04:13 01/15/18 04:13 <OuMicha - Last Filed: 01/15/18 06:30> - Physical Exam General Appearance: Yes: Appropriately Dressed, Moderate Distress HEENT: positive: Pharynx Normal. negative: Scleral Icterus (L), Pharyngeal Erythema Neck: positive: Supple. negative: Tender Respiratory/Chest: positive: Lungs Clear, Normal Breath Sounds. negative: Chest Tender, Respiratory Distress Cardiovascular: positive: Regular Rate, S1, S2. negative: Edema Gastrointestinal/Abdominal: positive: Normal Bowel Sounds, Tender (LLQ tendeness), Soft, Guarding. negative: Distended Musculoskeletal: negative: CVA Tenderness Extremity: positive: Normal Inspection, Normal Range of Motion Integumentary: positive: Dry, Warm Neurologic: positive: Fully Oriented, Alert, Normal Mood/Affect, Motor Strength 5/5. negative: Facial Droop, Numbness, Confused, Disoriented <Agaba,Comfort I - Last Filed: 01/15/18 06:34> ED Treatment Course - LABORATORY CBC & Chemistry Diagram: 01/15/18 04:27 01/15/18 04:27 - ADDITIONAL ORDERS Additional order review: Laboratory Results 01/15/18 01/15/18 01/15/18 04:35 04:27 04:27 PT with INR INR PTT (Actin FS) 33.2 Sodium Potassium Chloride Carbon Dioxide Anion Gap BUN Creatinine Creat Clearance w eGFR Random Glucose Lactic Acid 0.8 Calcium Total Bilirubin AST ALT Alkaline Phosphatase Total Protein Albumin Urine Color Urine Appearance Urine pH Ur Specific [place] Urine Protein Urine Glucose (UA) Urine Ketones Urine Blood Urine Nitrite Urine Bilirubin Urine Urobilinogen Ur Leukocyte Esterase Urine WBC (Auto) Urine RBC (Auto) Ur Epithelial Cells Urine Mucus Blood Type O POSITIVE Antibody Screen Negative 01/15/18 01/15/18 01/15/18 04:27 04:27 04:27 PT with INR 11.70 INR 1.04 PTT (Actin FS) Sodium 140 Potassium 4.0 Chloride 110 H Carbon Dioxide 28 Anion Gap 2 L BUN 14 Creatinine 0.7 Creat Clearance w eGFR > 60 Random Glucose 106 Lactic Acid Calcium 8.6 Total Bilirubin 0.3 D AST 15 ALT 23 Alkaline Phosphatase 61 Total Protein 7.4 Albumin 3.6 Urine Color Ltyellow Urine Appearance Slcloudy Urine pH 5.0 Ur Specific [place] 1.020 Urine Protein Negative Urine Glucose (UA) Negative Urine Ketones Negative Urine Blood Negative Urine Nitrite Negative Urine Bilirubin Negative Urine Urobilinogen Negative Ur Leukocyte Esterase 1+ H D Urine WBC (Auto) 1 Urine RBC (Auto) 1 Ur Epithelial Cells Rare Urine Mucus Rare Blood Type Antibody Screen 01/15/18 04:27 RBC 3.94 MCV 93.9 MCHC 34.7 RDW 13.3 MPV 9.5 Neutrophils % 55.1 Lymphocytes % 31.7 Monocytes % 10.7 H Eosinophils % 2.0 Basophils % 0.5 - Medications Given in the ED: ED Medications Discontinued Medications Generic Name Dose Route Start Last Admin Trade Name Cecy PRN Reason Stop Dose Admin Morphine Sulfate 4 mg 01/15/18 04:37 01/15/18 04:43 Morphine Injection - IVPUSH 01/15/18 04:38 4 mg ONCE ONE Administration <OuMicha - Last Filed: 01/15/18 06:30> - LABORATORY CBC & Chemistry Diagram: 01/15/18 04:27 01/15/18 04:27 <Agaba,Comfort I - Last Filed: 01/15/18 06:34> Medical Decision Making - Medical Decision Making 01/15/18 04:47 CBC, CMP, PT/PTT, UA, lactic acid, type and screen, CT abdomen /pelvis with iv contrast iv morphine 4mg -given 01/15/18 05:06 CBC- WBC-4.1, no anemia, Lactic acid-0.8, UA- negative 01/15/18 05:[address] abd/pelvis with iv contrast 01/15/18 06:33 CT abd pelvis- did not show any acute pathology. Plan is to discharge home to follow up with GI as an out patient <Keturah Saavedra I - Last Filed: 01/15/18 06:34> *DC/Admit/Observation/Transfer <Micha Martinez - Last Filed: 01/15/18 06:30> <Keturah Saavedra I - Last Filed: 01/15/18 06:34> Diagnosis at time of Disposition: Abdominal pain - Discharge Dispostion Disposition: HOME - Referrals Referrals: Ernesto De La Garza MD [Primary Care Provider] - - Patient Instructions Printed Discharge Instructions: DI for Abdominal Pain-Adult Additional Instructions: Your CT scan today did not show diverticulitis or any other serious problems in your abdomen. However, if you experience persistent or worsening pain, vomiting, fevers, or any other concerning symptoms, return to the ER immediately. Otherwise, follow up with your GI doctor within 1 week to have your pain further evaluated. - Post Discharge Activity
[2018-01-15] MEDS ORDERED: morphine CARPU-JECT 4 MG/1 ML DISP.SYRIN IVPUSH PRN (04:27)
[2018-01-15 04:28] VITALS: BP 118/72; PULSE 74; TEMP 97.8; BMI 34.1
[2018-01-15] MEDS ORDERED: morphine SULFATE 4 MG/ML VIAL ONE (04:36)
[2018-01-15] MEDS ORDERED: morphine CARPU-JECT 4 MG/1 ML DISP.SYRIN IVPUSH ONE (04:37)
[2018-01-15 04:46] LABS: BASO % 0.5 % (0-2.0); HEMOGLOBIN 12.8 GM/dL (10.7-15.3); LYMPH % 31.7 % (8-40); MCH 32.6 pg (25.7-33.7); MCHC 34.7 g/dl (32.0-36.0); MEAN CELL VOLUME 93.9 fl (80-96); MEAN PLT VOLUME 9.5 fl (7.5-11.1); MONO % 10.7 % (3.8-10.2); NEUT % 55.1 % (42.8-82.8); PLATELET COUNT 238 K/MM3 (134-434); RBC 3.94 M/mm3 (3.60-5.2); RDW 13.3 % (11.6-15.6); URINE APPEARANCE SLCLOUDY; URINE BILIRUBIN NEGATIVE (<2.0 mg/dL); URINE BLOOD NEGATIVE (NEGATIVE); URINE COLOR LTYELLOW; URINE GLUCOSE (UA) NEGATIVE (NEGATIVE); URINE KETONE NEGATIVE (NEGATIVE); URINE NITRITE NEGATIVE (NEGATIVE); URINE PROTEIN NEGATIVE (NEGATIVE); URINE UROBILINOGEN NEGATIVE mg/dL (0.2-1.0); WHITE BLOOD COUNT 4.1 K/mm3 (4.0-10.0)
[2018-01-15 04:55] LABS: INR 1.04 (0.82-1.09); PROTHROMBIN TIME (PATIENT) 11.7 SEC (9.7-13.0)
[2018-01-15 04:58] LABS: URINE LEUK ESTERASE 1+ (NEGATIVE)
[2018-01-15 04:59] LABS: EPI CELLS RARE /HPF (FEW); URINE MUCUS RARE
[2018-01-15 05:07] LABS: ALBUMIN 3.6 g/dl (3.4-5.0); ALK PHOS 61 U/L (45-117); ANION GAP 2 (8-16); BILIRUBIN,TOTAL 0.3 mg/dL (0.2-1.0); BLOOD UREA NITROGEN 14 mg/dL (7-18); CALCIUM 8.6 mg/dL (8.5-10.1); CHLORIDE 110 mmol/L (98-107); CO2 28 mmol/L (21-32); CREATININE 0.7 mg/dL (0.55-1.02); GLUCOSE,RANDOM 106 mg/dL (74-106); SGOT/AST 15 U/L (15-37); SGPT/ALT 23 U/L (12-78); SODIUM 140 mmol/L (136-145); TOT PROT 7.4 g/dl (6.4-8.2)
--- NOTE | 2018-01-15 05:37 | PDOC ---
Attending Attestation - Resident Resident Name: QuentinKeturah I - ED Attending Attestation I have performed the following: I have examined & evaluated the patient, The case was reviewed & discussed with the resident, I agree w/resident's findings & plan, Exceptions are as noted - HPI HPI: 01/15/18 05:35 "The patient is a 37 year old female, with a significant past medical history of cervical cancer s/p total hysterectomy (March 2015), who presents to the emergency department with intermittent left lower quadrant abdominal pain for the past 4 months. The patient reports that she was diagnosed with diverticulitis in September 2017. She was treated but states she has been experiencing symptoms on and off since that time. Most recently, she was started on a medication by her GI doctor last week but cannot recall the name. She believes it is an antibiotic. The patient reports experiencing severe abdominal pain this evening so she came to the ED for further evaluation. She states that it feels just like her previous diverticulitis flare. The patient denies fever, chills, nausea, vomiting, diarrhea, hematochezia or melena. Denies vaginal discharge/bleeding. Denies dysuria. Allergies: None reported. Past Surgical History: Total Abdominal Hysterectomy (2014). Social History: Non-smoker. Denies alcohol or drug use. - Physicial Exam PE: 01/15/18 05:36 "GENERAL: Awake, alert, and fully oriented, in no acute distress. HEAD: No signs of trauma EYES: PERRLA, EOMI, sclera anicteric, conjunctiva clear ENT: Auricles normal inspection, hearing grossly normal, nares patent, oropharynx clear without exudates. Moist mucosa NECK: Nontender, no stepoffs, Normal ROM, supple, no lymphadenopathy, JVD, or masses LUNGS: Breath sounds equal, clear to auscultation bilaterally. No wheezes, and no crackles HEART: Regular rate and rhythm, normal S1 and S2, no murmurs, rubs or gallops ABDOMEN: + LLQ tenderness, normoactive bowel sounds. No guarding, no rebound. No masses EXTREMITIES: Normal range of motion, no edema. No clubbing or cyanosis. No cords, erythema, or tenderness NEUROLOGICAL: Cranial nerves II through XII intact. 5/5 strength and sensation in all extremities, Normal speech, normal gait, normal cerebellar function SKIN: Warm, Dry, normal turgor, no rashes or lesions noted. " - Medical Decision Making 01/15/18 05:37 37 F with h/o diverticulitis presenting with intermittent LLQ pain, acutely worse today. Will r/o diverticulitis with CT. - Labs, UA - CTAP 01/15/18 06:[address] negative for acute process. Pt reassessed - still reporting some pain but comfortable appearing. Tolerating PO in ED. Pt instructed to f/u with GI. Pt is well appearing, with normal vitals. Clinically stable for DC at this time. I discussed the physical exam findings, ancillary test results and final diagnoses with the patient. I answered all of the patient's questions. The patient was satisfied with the care received and felt comfortable with the discharge plan and treatment plan. The patient agrees to follow up with the primary care physician within 24-72 hours.
== END 2018-01-15 06:46 | disposition home or self-care (01) ==
LOC: JER 04:07
PROC: 3E033NZ Introduction of Analgesics, Hypnotics, Sedatives into Peripheral Vein, Percutaneous Approach (ICD-10-PCS; principal; 2018-01-15)
DX: R10.32 Left lower quadrant pain (principal); Z85.41 Personal history of malignant neoplasm of cervix uteri
CPT/HCPCS: 36415; 74177-TC; 80053; 81003; 81015; 83605; 85025; 85610; 85730; 86850; 86900; 86901; 96374; 99283-25

== ENCOUNTER 2018-01-21 02:45 | Emergency (ER) | payer OTHER ==
[2018-01-21 03:13] VITALS: BP 134/81; PULSE 82; TEMP 97.4; BMI 34.1
[2018-01-21] MEDS ORDERED: LACTULOSE 20 GM/30 ML UDC (FOR ORAL USE ONLY) PO ONE (03:28)
[2018-01-21] MEDS ORDERED: POLYETHYLENE GLYCOL 3350 119 GM BTL PO ONE (03:28)
[2018-01-21] MEDS ORDERED: GLYCERIN 1 RECTAL SUPPOSITORY, ADULT PR ONE (03:29)
[2018-01-21] MEDS ORDERED: LACTULOSE 20 GM/30 ML UDC (FOR ORAL USE ONLY) ONE (03:37)
[2018-01-21] MEDS ORDERED: ONDANSETRON *ODT* 4 MG TABLET SL ONE (04:16)
[2018-01-21] MEDS ORDERED: ONDANSETRON 4 MG TABLET PO ONE (04:39)
--- NOTE | 2018-01-21 04:39 | PDOC ---
History of Present Illness - General History Source: Patient Exam Limitations: No Limitations - History of Present Illness Initial Comments: 01/21/18 04:43 The patient is a 37 year old female with a significant past medical history of diverticulitis and cervical cancer s/p total hysterectomy (March 2015) who presents to the ED with abdominal pain for several months. Patient was last seen in the ED on 01/15/18 for left lower quadrant pain, CT showed no acute inflammation and patient was discharged home and told to follow up with GI. 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 She comes into the ED today with complaints of left and right lower quadrant pain for several month. She also reports slight nausea and her last normal bowel movement was on Sunday. Denies fever or chills. Denies chest pain or shortness of breath. Denies vomiting. Denies change in urinary output. Denies any other symptoms. <Gustabo Carroll - Last Filed: 01/21/18 04:43> <Cookie Perry - Last Filed: 01/21/18 05:05> - General Chief Complaint: Pain Stated Complaint: STOMACH PAIN Time Seen by Provider: 01/21/18 02:54 Past History <Gustabo Carroll - Last Filed: 01/21/18 04:43> - Past Medical History Anemia: Yes Asthma: No Cancer: Yes (cervical) Cardiac Disorders: No COPD: No Diabetes: No HTN: No Seizures: No Thyroid Disease: No - Surgical History Abdominal Surgery: Yes (CALIXTO) - Reproductive History Cervical CA: Yes - Immunization History Immunization Up to Date: Yes - Suicide/Smoking/Psychosocial Hx Smoking History: Never smoked Have you smoked in the past 12 months: No Information on smoking cessation initiated: No Hx Alcohol Use: No Drug/Substance Use Hx: No Substance Use Type: None Hx Substance Use Treatment: No <Cookie Perry - Last Filed: 01/21/18 05:05> - Past Medical History Allergies/Adverse Reactions: Allergies Allergy/AdvReac Type Severity Reaction Status Date / Time No Known Allergies Allergy Verified 01/21/18 03:13 Home Medications: Ambulatory Orders Dicyclomine HCl [Bentyl -] 10 mg PO DAILY 01/15/18 Review of Systems - Review of Systems Able to Perform ROS?: Yes Comments:: 01/21/18 04:43 CONSTITUTIONAL: Absent: fever, chills, diaphoresis, generalized weakness, malaise, loss of appetite HEENT: Absent: rhinorrhea, nasal congestion, throat pain, throat swelling, difficulty swallowing, mouth swelling, ear pain, eye pain, visual Changes CARDIOVASCULAR: Absent: chest pain, syncope, palpitations, irregular heart rate, lightheadedness , peripheral edema RESPIRATORY: Absent: cough, shortness of breath, dyspnea with exertion, orthopnea, wheezing, stridor, hemoptysis GASTROINTESTINAL:+ abdominal pain, nausea Absent: abdominal distension, vomiting, diarrhea, constipation, melena, hematochezia GENITOURINARY: Absent: dysuria, frequency, urgency, hesitancy, hematuria, flank pain, genital pain MUSCULOSKELETAL: Absent: myalgia, arthralgia, joint swelling SKIN: Absent: rash, itching, pallor HEMATOLOGIC/IMMUNOLOGIC: Absent: easy bleeding, easy bruising, lymphadenopathy, frequent infections ENDOCRINE: Absent: unexplained weight gain, unexplained weight loss, heat intolerance, cold intolerance NEUROLOGIC: Absent: headache, focal weakness or paresthesias, dizziness, unsteady gait, seizure, mental status changes, bladder or bowel incontinence PSYCHIATRIC: Absent: anxiety, depression, suicidal or homicidal ideation, hallucinations. All Other Systems: Reviewed and Negative <Gustabo Carroll - Last Filed: 01/21/18 04:43> *Physical Exam - Vital Signs Last Vital Signs Temp Pulse Resp BP Pulse Ox 97.4 F L 82 20 134/81 97 01/21/18 03:11 01/21/18 03:11 01/21/18 03:11 01/21/18 03:11 01/21/18 03:11 - Physical Exam Comments: 01/21/18 04:44 GENERAL: Well developed, well nourished. Awake and alert. No acute distress. HEENT: Normocephalic, atraumatic. PERRLA, EOMI. No conjunctival pallor. Sclera are non- icteric. Moist mucous membranes. Oropharynx is clear. NECK: Supple. Full ROM. No JVD. Carotid pulses 2+ and symmetric, without bruits. No thyromegaly. No lymphadenopathy. CARDIOVASCULAR: Regular rate and rhythm. No murmurs, rubs, or gallops. Distal pulses are 2+ and symmetric. PULMONARY: No evidence of respiratory distress. Lungs clear to auscultation bilaterally. No wheezing, rales or rhonchi. ABDOMINAL: + gassy bowel sounds Soft. Non-tender. Non-distended. No rebound or guarding. No organomegaly. MUSCULOSKELETAL Normal range of motion at all joints. No bony deformities or tenderness. No CVA tenderness. EXTREMITIES: No cyanosis. No clubbing. No edema. No calf tenderness. SKIN: Warm and dry. Normal capillary refill. No rashes. No jaundice. NEUROLOGICAL: Alert, awake, appropriate. Cranial nerves 2-12 intact. No deficits to light touch and temperature in face, upper extremities and lower extremities. No motor deficits in the in face, upper extremities and lower extremities. Normoreflexic in the upper and lower extremities. Normal speech. Toes are down- going bilaterally. Gait is normal without ataxia. PSYCHIATRIC: Cooperative. Good eye contact. Appropriate mood and affect. <Gustabo Carroll - Last Filed: 01/21/18 04:43> - Vital Signs Last Vital Signs Temp Pulse Resp BP Pulse Ox 97.4 F L 82 20 134/81 97 01/21/18 03:11 01/21/18 03:11 01/21/18 03:11 01/21/18 03:11 01/21/18 03:11 <Cookie Perry - Last Filed: 01/21/18 05:05> ED Treatment Course - Medications Given in the ED: ED Medications Discontinued Medications Generic Name Dose Route Start Last Admin Trade Name Freq PRN Reason Stop Dose Admin Ondansetron HCl 8 mg 01/21/18 04:16 01/21/18 04:17 Zofran Odt - SL 01/21/18 04:17 8 mg NOW ONE Administration <Gustabo Carroll - Last Filed: 01/21/18 04:43> - RADIOLOGY Radiology Studies Ordered: Category Date Time Status ABDOMEN FLAT & UPRIGHT [RAD] Stat Radiology 01/21/18 03:18 Ordered - Medications Given in the ED: ED Medications Discontinued Medications Generic Name Dose Route Start Last Admin Trade Name Freq PRN Reason Stop Dose Admin Ondansetron HCl 8 mg 01/21/18 04:16 01/21/18 04:17 Zofran Odt - SL 01/21/18 04:17 8 mg NOW ONE Administration <Cookie Perry - Last Filed: 01/21/18 05:05> Medical Decision Making - Medical Decision Making 01/21/18 05:02 gas pain. Pt has Gas and constipation on her FUA. <Cookie Perry - Last Filed: 01/21/18 05:05> *DC/Admit/Observation/Transfer - Attestations Scribe Attestion: 01/21/18 04:44 Documentation prepared by Gustabo Carroll, acting as medical staff physician for Cookie Perry MD <Gustabo Carroll - Last Filed: 01/21/18 04:43> <Cookie Perry - Last Filed: 01/21/18 05:05> Diagnosis at time of Disposition: Constipation, Gas pain - Discharge Dispostion Disposition: HOME Condition at time of disposition: Fair - Referrals Referrals: Ernesto De La Garza MD [Primary Care Provider] - - Patient Instructions Printed Discharge Instructions: Constipation, Vegetarian Diet, Eating a Diet Rich in Fruits and Vegetables - Post Discharge Activity
== END 2018-01-21 05:29 | disposition home or self-care (01) ==
LOC: JER 02:45
DX: K59.00 Constipation, unspecified (principal); Z87.19 Personal history of other diseases of the digestive system; Z85.41 Personal history of malignant neoplasm of cervix uteri; Z90.710 Acquired absence of both cervix and uterus; Z86.2 Personal history of diseases of the blood and blood-forming organs and certain disorders involving the immune mechanism
CPT/HCPCS: 74019-TC-FY; 99283-25; Q0162

== ENCOUNTER 2018-01-21 21:08 | Inpatient (IN) | payer OTHER ==
--- NOTE | 2018-01-21 21:34 | PDOC ---
History of Present Illness - General History Source: Patient Exam Limitations: No Limitations - History of Present Illness Initial Comments: 01/21/18 22:48 The patient is a 37 year old female with past medical history of Diverticulitis (September 2017) and cervical cancer s/p hysterectomy (March 2015) presents to the emergency department w/ right upper quadrant pain. The patient reports she was here last night with similar symptoms. The patient reports multiple episodes of bilious vomiting. The patient seen and states shes tired. Denies hematemesis, chest pain or SOB. Denies diarrhea, constipation, dysuria, hematuria or frequency or urgency to urinate. GI doctor: Dr. villalobos Social history: NKDA PCP: Dr. Ernesto De La Garza <Jesica Duque - Last Filed: 01/21/18 23:07> <Alyssa Ibarra - Last Filed: 01/22/18 02:17> - General Chief Complaint: Pain, Acute Stated Complaint: ABD PAIN Time Seen by Provider: 01/21/18 21:30 Past History <Jesica Duque - Last Filed: 01/21/18 23:07> - Past Medical History Anemia: Yes Asthma: No Cancer: Yes (cervical) Cardiac Disorders: No COPD: No Diabetes: No HTN: No Seizures: No Thyroid Disease: No - Surgical History Abdominal Surgery: Yes (CALIXTO) - Reproductive History Cervical CA: Yes - Immunization History Immunization Up to Date: Yes - Suicide/Smoking/Psychosocial Hx Smoking History: Never smoked Have you smoked in the past 12 months: No Information on smoking cessation initiated: No Hx Alcohol Use: No Drug/Substance Use Hx: No Substance Use Type: None Hx Substance Use Treatment: No <Alyssa Ibarra - Last Filed: 01/22/18 02:17> - Past Medical History Allergies/Adverse Reactions: Allergies Allergy/AdvReac Type Severity Reaction Status Date / Time No Known Allergies Allergy Verified 01/21/18 21:22 Home Medications: Ambulatory Orders Dicyclomine HCl [Bentyl -] 10 mg PO DAILY 01/15/18 Review of Systems - Review of Systems Able to Perform ROS?: Yes Comments:: 01/21/18 22:50 CONSTITUTIONAL: Absent: fever, no chills, no fatigue EYES: Absent: visual changes ENT: Absent: ear pain, no sore throat CARDIOVASCULAR: Absent: chest pain, no palpitations RESPIRATORY: Absent: cough, no SOB GI: (+) right upper quadrant pain. (+) nausea and bilious vomiting. Absent: no constipation, no diarrhea GENITOURINARY: Absent: dysuria, no frequency, no hematuria MUSKULOSKELETAL: Absent: back pain, no arthralgia, no myalgia SKIN: Absent: rash NEURO: Absent: headache <Jesica Duque - Last Filed: 01/21/18 23:07> *Physical Exam - Vital Signs Last Vital Signs Temp Pulse Resp BP Pulse Ox 97.9 F 84 20 128/86 98 01/21/18 21:22 01/21/18 21:22 01/21/18 21:22 01/21/18 21:22 01/21/18 21:22 - Physical Exam Comments: 01/21/18 23:07 GENERAL: Well-appearing, well-nourished. No apparent distress. HEENT: Normocephalic, atraumatic. PERRL, EOM intact. CARDIOVASCULAR: Normal S1, S2. Regular rate and rhythm. PULMONARY: Clear to auscultation bilaterally. ABDOMEN: (+) Right upper quadrant pain. Persistent nausea and tenderness to palpation of the right upper quadrant. No rebound tenderness. Soft, non-distended. EXTREMITIES: Normal ROM in all four extremities. No gross deformities. SKIN: Warm, dry. No rash NEUROLOGICAL: No focal neurological deficits. <Jesica Duque - Last Filed: 01/21/18 23:07> - Vital Signs Last Vital Signs Temp Pulse Resp BP Pulse Ox 97.9 F 84 20 128/86 98 01/21/18 21:22 01/21/18 21:22 01/21/18 21:22 01/21/18 21:22 01/21/18 21:22 <Alyssa Ibarra - Last Filed: 01/22/18 02:17> ED Treatment Course - LABORATORY CBC & Chemistry Diagram: 01/21/18 23:01 01/21/18 23:01 <Alyssa Ibarra - Last Filed: 01/22/18 02:17> Medical Decision Making - Medical Decision Making 01/22/18 01:57 Abdomen pelvis CAT scan with contrast findings cardiac chambers are normal. Gallbladder is distended, inflamed. Normal pancreas, spleen, adrenals and kidneys. There is diffuse small and large bowel obstruction." Air and liquid stool. There is an abrupt transition point in the sigmoid colon with ease and rhythm, irregular mass. Findings are consistent with large bowel obstruction with suspected colon carcinoma. Surgical clips from prior hysterectomy. Minimal ascites without abscess or free air. No aortic aneurysm Is no significant retroperitoneal lymphadenopathy. Appendix is normal IMP bowel obstruction, intractable vomiting. Pt made NPO and NGT ordered. Case discussed w Dr Acosta ,surgery and Dr Lazar,hospitalist Admit MedSur 01/22/18 02:16 <Alyssa Ibarra - Last Filed: 01/22/18 02:17> *DC/Admit/Observation/Transfer - Attestations Scribe Attestion: 01/21/18 22:51 Documentation prepared by Jesica Duque, acting as medical care administrator for Alyssa Ibarra MD. <Jesica Duque - Last Filed: 01/21/18 23:07> - Discharge Dispostion Admit: Yes <Alyssa Ibarra - Last Filed: 01/22/18 02:17> Diagnosis at time of Disposition: Generalized abdominal pain Bowel obstruction Qualifiers: Intestinal obstruction type: unspecified Intestinal obstruction extent: unspecified extent Qualified Code(s): K56.609 - Unspecified intestinal obstruction, unspecified as to partial versus complete obstruction Vomiting Qualifiers: Vomiting type: unspecified Vomiting Intractability: intractable Nausea presence : with nausea Qualified Code(s): R11.2 - Nausea with vomiting, unspecified
[2018-01-21] MEDS ORDERED: ONDANSETRON 4 MG/2 ML VIAL IVPUSH STA (22:14)
[2018-01-21] MEDS ORDERED: SODIUM CHLORIDE 1,000 ML IV STA (22:25)
[2018-01-21] MEDS ORDERED: ONDANSETRON 4 MG/2 ML VIAL ONE (22:54)
[2018-01-21] MEDS ORDERED: PANTOPRAZOLE SODIUM 40 MG VIAL IVPUSH ONE (23:01)
[2018-01-21 23:12] LABS: BASO % 0.1 % (0-2.0); HEMATOCRIT 40.1 % (32.4-45.2); HEMOGLOBIN 13.8 GM/dL (10.7-15.3); LYMPH % 7.1 % (8-40); MCHC 34.4 g/dl (32.0-36.0); MEAN CELL VOLUME 93.1 fl (80-96); MEAN PLT VOLUME 9.5 fl (7.5-11.1); MONO % 2.7 % (3.8-10.2); NEUT % 90.1 % (42.8-82.8); PLATELET COUNT 333 K/MM3 (134-434); RBC 4.31 M/mm3 (3.60-5.2); RDW 13.4 % (11.6-15.6); WHITE BLOOD COUNT 11.9 K/mm3 (4.0-10.0)
[2018-01-21 23:40] LABS: ALBUMIN 4.4 g/dl (3.4-5.0); ALK PHOS 71 U/L (45-117); ANION GAP 12 (8-16); BILIRUBIN,TOTAL 0.5 mg/dL (0.2-1.0); BLOOD UREA NITROGEN 19 mg/dL (7-18); CALCIUM 9.8 mg/dL (8.5-10.1); CHLORIDE 105 mmol/L (98-107); CO2 22 mmol/L (21-32); CREATININE 0.8 mg/dL (0.55-1.02); GLUCOSE,RANDOM 165 mg/dL (74-106); LIPASE 112 U/L (73-393); POTASSIUM 4.8 mmol/L (3.5-5.1); SGOT/AST 14 U/L (15-37); SGPT/ALT 19 U/L (12-78); SODIUM 139 mmol/L (136-145); TOT PROT 8.8 g/dl (6.4-8.2)
[2018-01-22] MEDS ORDERED: morphine CARPU-JECT 2 MG/1 ML DISP.SYRIN IVPUSH ONE ×2 (00:40→02:26)
[2018-01-22] MEDS ORDERED: morphine SULFATE 4 MG/ML VIAL ONE ×2 (00:41→02:43)
--- NOTE | 2018-01-22 02:21 | PN ---
Teaching Attending Note Name of Resident: Danial Ojeda ATTENDING PHYSICIAN STATEMENT I saw and evaluated the patient. I reviewed the resident's note and discussed the case with the resident. I agree with the resident's findings and plan as documented. SUBJECTIVE: 37 yo F with pmhx. of cervical ca s/p CALIXTO and diverticulitis who presents with right upper quadrant pain. Also with associated emesis- bilious. No fevers or chills, No chest pain or pressure. No diarrhea, but states she has continued abdominal pain. OBJECTIVE: Physical: VS: Vital Signs Period Temp Pulse Resp BP Sys/Luna Pulse Ox Last 24 Hr 97.9 F 84 20 128/86 98 GEN: NAD, Resting in bed, AA0X3 HEENT: NCAT, PERRL, Throat without erythema or exudates CARD: RRR S1, S2 RESP: CTAB ABD: BS decreased, TTP all quadrants EXT: - C/C/E CBCD WBC 11.9 K/mm3 (4.0-10.0) H D 01/21/18 23:01 RBC 4.31 M/mm3 (3.60-5.2) 01/21/18 23:01 Hgb 13.8 GM/dL (10.7-15.3) 01/21/18 23:01 Hct 40.1 % (32.4-45.2) 01/21/18 23:01 MCV 93.1 fl (80-96) 01/21/18 23:01 MCHC 34.4 g/dl (32.0-36.0) 01/21/18 23:01 RDW 13.4 % (11.6-15.6) 01/21/18 23:01 Plt Count 333 K/MM3 (134-434) D 01/21/18 23:01 MPV 9.5 fl (7.5-11.1) 01/21/18 23:01 CMP Sodium 139 mmol/L (136-145) 01/21/18 23:01 Potassium 4.8 mmol/L (3.5-5.1) 01/21/18 23:01 Chloride 105 mmol/L (98-107) 01/21/18 23:01 Carbon Dioxide 22 mmol/L (21-32) 01/21/18 23:01 Anion Gap 12 (8-16) 01/21/18 23:01 BUN 19 mg/dL (7-18) H 01/21/18 23: Creatinine 0.8 mg/dL (0.55-1.02) 01/21/18 23: Creat Clearance w eGFR > 60 (>60) 01/21/18 23: Random Glucose 165 mg/dL (74-106) H 01/21/18 23:01 Calcium 9.8 mg/dL (8.5-10.1) 01/21/18 23: Total Bilirubin 0.5 mg/dL (0.2-1.0) D 01/21/18 23: AST 14 U/L (15-37) L 01/21/18 23: ALT 19 U/L (12-78) 01/21/18 23: Alkaline Phosphatase 71 U/L (45-117) 01/21/18 23: Total Protein 8.8 g/dl (6.4-8.2) H 01/21/18 23: Albumin 4.4 g/dl (3.4-5.0) 01/21/18 23: Abdomen pelvis CAT scan with contrast findings cardiac chambers are normal. Gallbladder is distended, inflamed. Normal pancreas, spleen, adrenals and kidneys. There is diffuse small and large bowel obstruction." Air and liquid stool. There is an abrupt transition point in the sigmoid colon with ease and rhythm, irregular mass. Findings are consistent with large bowel obstruction with suspected colon carcinoma. Surgical clips from prior hysterectomy. Minimal ascites without abscess or free air. No aortic aneurysm Is no significant retroperitoneal lymphadenopathy. Appendix is normal IMP bowel obstruction, intractable vomiting ASSESSMENT AND PLAN: 37 F with hx. of cervical ca s/p CALIXTO who presens with abdominal pain, found to have small/large bowel obstruction 1.) Bowel Obstruction/ Small/Large - NGT - NPO - IVF - ABD Xray flt/UR - Type& Screen, Coags - Sx. consulted 2.) ? Sigmoid Mass/Hx. of Cervical Ca - Not seen on 01/15 CT - FU officicial Read - Onc consult 3.) Dvt Ppx - SCDs Place
[2018-01-22] MEDS: SODIUM CHLORIDE 1,000 ML IV SCH ×3 (02:48→21:32)
[2018-01-22] MEDS ORDERED: PROCHLORPERAZINE INJECTION 10 MG/2 ML VIAL IVPB ONE (02:49)
[2018-01-22] MEDS ORDERED: PROCHLORPERAZINE INJECTION 10 MG/2 ML VIAL ONE (02:57)
[2018-01-22] MEDS ORDERED: morphine SULFATE 4 MG/ML VIAL IVPUSH PRN (03:02)
[2018-01-22] MEDS ORDERED: SODIUM CHLORIDE 1,000 ML IV STA (03:02)
[2018-01-22] MEDS ORDERED: LIDOCAINE VISCOUS 2% ORAL/TOP 20 ML UNIT-DOSE CUP MM ONE (03:38)
[2018-01-22] MEDS ORDERED: MIDAZOLAM HCL 2 MG/2 ML SINGLE DOSE VIAL IVPUSH ONE (03:40)
[2018-01-22] MEDS ORDERED: TETRACAINE/BENZOCAINE/BUTAMBEN 20 GM SPR TP ONE (03:40)
[2018-01-22] MEDS ORDERED: MIDAZOLAM HCL 2 MG/2 ML SINGLE DOSE VIAL ONE (03:45)
[2018-01-22] MEDS ORDERED: LIDOCAINE VISCOUS 2% ORAL/TOP 20 ML UNIT-DOSE CUP ONE (03:45)
--- NOTE | 2018-01-22 04:02 | HP ---
CHIEF COMPLAINT: abdominal pain, HISTORY OF PRESENT ILLNESS: 37 yr old woman with a hx of diverticulitis presents with 3 day hx of abdominal pain, nausea, vomiting and constipation. She was in the ED on 01/21 with similar complaints. upon dc she continued to have nonbloody bilious vomiting, multiple episodes, with 20/10 diffuse abdominal pain. she tried an OTC fleet enema that yielded a small nonbloody bowel movement. Has not had a normal bowel movement in 1 week, does not feel like she had passed any flatulence in >24 hours. She has been burping when she vomits. Denies chest pain, SOB, trouble swallowing, fevers, diarrhea. ER course was notable for: (1) CT scan with prelim read of obstruction (2) small NG tube placed (3) Surgery consulted: Dr. Erickson Recent Travel: none PAST MEDICAL HISTORY: 1 episode of diverticulitis in Sep 2017 treated with 1-wk course of abx at [facility] PAST SURGICAL HISTORY: Partial abdominal hysterectomy due to cervical cancer (has her ovaries) March 2015 Social History: Smoking: denies Alcohol: denies Drugs: denies Family History: denies HTN, Cancer, DM Allergies No Known Allergies Allergy (Verified 01/21/18 21:22) HOME MEDICATIONS: Home Medications Medication Instructions Recorded Dicyclomine HCl [Bentyl -] 10 mg PO DAILY 01/15/18 REVIEW OF SYSTEMS CONSTITUTIONAL: Absent: fever, chills, diaphoresis, generalized weakness, malaise, loss of appetite, weight change HEENT: Absent: rhinorrhea, nasal congestion, throat pain, throat swelling, difficulty swallowing, mouth swelling, visual changes CARDIOVASCULAR: Absent: chest pain, syncope, palpitations, irregular heart rate, lightheadedness , peripheral edema RESPIRATORY: Absent: cough, shortness of breath, dyspnea with exertion, orthopnea, wheezing, stridor, hemoptysis GASTROINTESTINAL: Present:abdominal pain, abdominal distension, nausea, vomiting, constipation, Absent: diarrhea, melena, hematochezia GENITOURINARY: Absent: dysuria, frequency, urgency, hesitancy, hematuria, flank pain, genital pain MUSCULOSKELETAL: Absent: myalgia, arthralgia, joint swelling, back pain, neck pain SKIN: Absent: rash, itching, pallor ENDOCRINE: Absent: unexplained weight gain, unexplained weight loss, heat intolerance, cold intolerance PHYSICAL EXAMINATION Vital Signs - 24 hr 01/21/18 21:22 Temperature 97.9 F Pulse Rate 84 Respiratory 20 Rate Blood Pressure 128/86 O2 Sat by Pulse 98 Oximetry (%) GENERAL: Awake, alert, in no acute distress. HEAD: Normal with no signs of trauma. EYES: Pupils equal, round and reactive to light, extraocular movements intact, sclera anicteric, conjunctiva clear. No lid lag. EARS, NOSE, THROAT: oropharynx clear without exudates. dry mucous membranes. NECK: Normal range of motion, supple without lymphadenopathy, JVD, or masses. LUNGS: Breath sounds equal, clear to auscultation bilaterally. No wheezes, and no crackles. No accessory muscle use. HEART: Regular rate and rhythm, normal S1 and S2 without murmur, rub or gallop. ABDOMEN: Soft, +tender marked in epigastrium, neg tyler's, +distended, hypactive bowel sounds across upper quadrants, no BS appreciated in lower and mid abdominal quadrants, no guarding, no rebound MUSCULOSKELETAL: Normal range of motion at all joints. No bony deformities or tenderness. No CVA tenderness. UPPER EXTREMITIES: 2+ radial pulses, warm, well-perfused. No cyanosis. No clubbing. No peripheral edema. LOWER EXTREMITIES: 2+ dp pulses, warm, well-perfused. No calf tenderness. No peripheral edema. NEUROLOGICAL: Cranial nerves II-XII intact. Normal speech. facial symmetry, 5/ 5 hand rn review/flex&ext of all upper extremity groups and lower extermity groups. PSYCHIATRIC: Cooperative. Good eye contact. Appropriate mood and affect. SKIN: Warm, dry, normal turgor, no rashes or lesions noted, normal capillary refill. Laboratory Results - last 24 hr 01/21/18 01/21/18 23:01 23:01 WBC 11.9 H D RBC 4.31 Hgb 13.8 Hct 40.1 MCV 93.1 MCH 32.0 MCHC 34.4 RDW 13.4 Plt Count 333 D MPV 9.5 Neutrophils % 90.1 H D Lymphocytes % 7.1 L D Monocytes % 2.7 L Eosinophils % 0.0 D Basophils % 0.1 Sodium 139 Potassium 4.8 Chloride 105 Carbon Dioxide 22 Anion Gap 12 BUN 19 H Creatinine 0.8 Creat Clearance w eGFR > 60 Random Glucose 165 H Calcium 9.8 Total Bilirubin 0.5 D AST 14 L ALT 19 Alkaline Phosphatase 71 Total Protein 8.8 H Albumin 4.4 Lipase 112 ASSESSMENT/PLAN: 37 yr old woman with diffuse abdominal pain, nausea and vomiting admitted for SBO #SBO - NG tube to wall suction - NPO - pending official read of abdominal pelvis CT scan; may need onc consult for possible sigmoid mass on CT scan, though not reported on CT scan on 01/15 - pain control with IV tylenol, attempt to avoid morphine due to gi side effects - surgery consult Dr. Erickson, as per rec repeat abdominal xray - compazine for nausea, pending EKG to check QTc, if normal, can give zofran #leucocytosis, mildly elevated, likely reactive, trend in the AM #Diet: NPO #FE: - NS @150cc/hr, - no current electrolyte abnormalities; repeat in the AM #DVT prophylaxis: SCD's Visit type - Emergency Visit Emergency Visit: Yes ED Registration Date: 01/22/18 Care time: The patient presented to the Emergency Department on the above date and was hospitalized for further evaluation of their emergent condition. - New Patient This patient is new to me today: Yes Date on this admission: 01/22/18 - Critical Care Critical Care patient: No Hospitalist Screening - Colonoscopy Questionnaire Colonoscopy Questionnaire: Colonoscopy Questionnaire - Patient: 50 - 75 years old and never had a screening colonoscopy: Unknown History of colon or rectal polyps, or CA: Unknown History of IBD, Crohn's disease or UC: Unknown History of abdominal radiation therapy as a child: Unknown - Relative: 1 with colon or rectal CA, or polyps at age 60 or younger: Unknown Colon or rectal CA diagnosed at age 45 or younger: Unknown Multiple relatives with colon or rectal CA: Unknown - Outcome: Screening Result: Negative Screen
[2018-01-22] MEDS ORDERED: HEPARIN NA (PORCINE) 5,000 UNITS/ML 1ML VIAL SQ SCH (06:00)
[2018-01-22 08:08] VITALS: BMI 41.3
[2018-01-22 08:39] LABS: BASO % 0.2 % (0-2.0); HEMATOCRIT 36.8 % (32.4-45.2); HEMOGLOBIN 12.5 GM/dL (10.7-15.3); LYMPH % 14.2 % (8-40); MCH 31.7 pg (25.7-33.7); MCHC 33.9 g/dl (32.0-36.0); MEAN CELL VOLUME 93.6 fl (80-96); MEAN PLT VOLUME 9.3 fl (7.5-11.1); MONO % 7.4 % (3.8-10.2); NEUT % 78.2 % (42.8-82.8); PLATELET COUNT 274 K/MM3 (134-434); RBC 3.93 M/mm3 (3.60-5.2); RDW 13.2 % (11.6-15.6); WHITE BLOOD COUNT 8.3 K/mm3 (4.0-10.0)
[2018-01-22 09:03] LABS: INR 1.05 (0.82-1.09); PROTHROMBIN TIME (PATIENT) 11.9 SEC (9.7-13.0)
[2018-01-22 09:12] LABS: ALBUMIN 3.5 g/dl (3.4-5.0); ANION GAP 7 (8-16); BILIRUBIN,TOTAL 0.5 mg/dL (0.2-1.0); BLOOD UREA NITROGEN 18 mg/dL (7-18); CALCIUM 8.4 mg/dL (8.5-10.1); CHLORIDE 109 mmol/L (98-107); CO2 25 mmol/L (21-32); CREATININE 0.7 mg/dL (0.55-1.02); GLUCOSE,RANDOM 113 mg/dL (74-106); MAGNESIUM 2.3 mg/dL (1.8-2.4); PHOSPHOROUS 2.9 mg/dL (2.5-4.9); POTASSIUM 4.3 mmol/L (3.5-5.1); SGOT/AST 14 U/L (15-37); SGPT/ALT 14 U/L (12-78); SODIUM 141 mmol/L (136-145); TOT PROT 7.1 g/dl (6.4-8.2)
[2018-01-22 09:13] LABS: ALK PHOS 60 U/L (45-117)
--- NOTE | 2018-01-22 09:58 | EKG ---
Test Reason : Blood Pressure : / mmHG Vent. Rate : 071 BPM Atrial Rate : 071 BPM P-R Int : 120 ms QRS Dur : 078 ms QT Int : 412 ms P-R-T Axes : 035 004 019 degrees QTc Int : 447 ms NORMAL SINUS RHYTHM MINIMAL VOLTAGE CRITERIA FOR LVH, MAY BE NORMAL VARIANT BORDERLINE ECG WHEN COMPARED WITH ECG OF 13-SEP-2015 15:43, NO SIGNIFICANT CHANGE WAS FOUND Confirmed by MD Pj, Jesus ([id number]) on 01/22/2018 9:58:32 AM Referred By: Confirmed By:Jesus Oliva MD
[2018-01-22] MEDS: morphine SULFATE 4 MG/ML VIAL IVPUSH PRN ×4 (11:49→21:27)
--- NOTE | 2018-01-22 12:34 | PN ---
Teaching Attending Note Name of Resident: Shital Connelly ATTENDING PHYSICIAN STATEMENT I saw and evaluated the patient. I reviewed the resident's note and discussed the case with the resident. I agree with the resident's findings and plan as documented. SUBJECTIVE: has abd pain, denies nausea. no fever or chills. no flatus OBJECTIVE: NAD, looks ill. comfortable in bed. NGT in . slightly dry MM. Cv: RRR. no MRG Lungs: CATB. Abd: soft, distended. TTP in upper quadrants. hypoactive BS. Ext: no edema ASSESSMENT AND PLAN: Unfortunate 37 y/o lady with h/o cervical cancer s/p Hysterectomy and chrmo/Rtx who presented with abd pain and N/V and was found to have small and large bowel obstruction 1- Small and large todd obstruction. CT with sigmoid mass. CT image form 01/15 reviewed, there might be a mass in sigmoid colon then will discuss with radiologist. - NGT , NPO - IVF - pain control . - will obtain last colonoscopy report. - Will d/w radiologist presence of mass on 01/15 Ct - d/w dr. Erickson. need GI eval. conservative mgt now 2- mild leukocytosis : due to stress reaction . - hold off Abx , unless ischemia and fever develop 3- h/o cervical cancer. 4- DVT PX. use heparin SQ. avoid lovnox in case sx is planned
--- NOTE | 2018-01-22 12:57 | CONSULT ---
Consult Consult Specialty:: General Surgery Referred by:: ER/Hospitalist Reason for Consultation:: SBO with descending colon mass - History of Present Illness Chief Complaint: upper abdominal pain, n/v, constipation History of Present Illness: 37yo F with h/o cervical CA 3 yrs ago s/p LAVH and chemo/RT, kept ovaries, which were pexied up out of pelvis bilaterally, has followed with [employer] and remains on letrozole; she presented to ER with upper abdominal pain and N/V yesterday. A week ago, she was seen in ER also for pain but did not have vomiting at the time. CT was done showing no acute pathology. Yesterday, CT showed SB/LB obstruction secondary to descending colon mass, which on retrospect was also present on 01/15 scan without obstruction. Left ovary is pexied at about the same level lateral to this area of colon. In September, she was treated at [facility] in [place] for diverticulitis with antibiotics, but did not have follow up colonoscopy. She states she did have one in 2014 at the time of her CA diagnosis. She has upper abdominal pain, but feels a little better after NGT placement in ER. AXR this morning shows NGT in stomach, no free air. Labs are significant for Hb 10, lytes ok. Surgery is consulted to evaluate. - History Source History Provided By: Patient, Medical Record Limitations to Obtaining History: Clinical Condition (pt not talking much with NGT) - Past Medical History Renal/: Yes: Cancer (cervical 2014) ...: No (s/p hyst) Heme/Onc: Yes: Cancer (cervical 2015 s/p chemo/XRT done 08/01, hyst 03/31) - Past Surgical History Past Surgical History: Yes: Hysterectomy (laparoscopic/vaginal, complete). No: Oopherectomy (ovaries pexied up out of pelvis for XRT) - Alcohol/Substance Use Hx Alcohol Use: Yes (rarely) History of Substance Use: reports: None - Smoking History Smoking history: Never smoked Have you smoked in the past 12 months: No - Social History ADL: Independent Home Medications - Allergies Allergies/Adverse Reactions: Allergies Allergy/AdvReac Type Severity Reaction Status Date / Time No Known Allergies Allergy Verified 01/21/18 21:22 - Home Medications Home Medications: Ambulatory Orders NK [No Known Home Medication] 05/08/18 Family Disease History - Family Disease History Other Family History: cousins - one with brain and one with bone cancer, at 5 and 15 yrs old Review of Systems - Review of Systems Constitutional: denies: Chills, Fever, Unintentional Wgt. Loss Eyes: reports: Other (wears glasses). denies: Recent Change in Vision HENT: denies: Difficult Swallowing, Nasal Congestion, Throat Pain Neck: denies: Swollen Glands, Tenderness Cardiovascular: denies: Chest Pain, Palpitations Respiratory: denies: Cough, SOB Gastrointestinal: reports: Abdominal Pain (with hpi), Constipation (no BM x 1wk) , Nausea (with hpi), Vomiting (with hpi). denies: Diarrhea Genitourinary: denies: Burning, Dysuria Musculoskeletal: denies: Back Pain, Joint Pain, Muscle Pain Integumentary: denies: Change in Color, Rash Neurological: denies: Dizziness, Headache Psychiatric: denies: Anxiety, Depression Physical Exam Vital Signs: Vital Signs Temperature 98.1 F 01/22/18 06:00 Pulse Rate 70 01/22/18 06:00 Respiratory Rate 20 01/22/18 06:00 Blood Pressure 129/79 01/22/18 06:00 O2 Sat by Pulse Oximetry (%) 98 01/22/18 06:00 Constitutional: Yes: Well Nourished, No Distress, Calm Eyes: Yes: Conjunctiva Clear, EOM Intact HENT: Yes: Atraumatic, Normocephalic, Other (NGT in place, adjusted slightly and sumps well, minimal clear output) Neck: Yes: Supple, Trachea Midline Cardiovascular: Yes: Regular Rate and Rhythm. No: Murmur Respiratory: Yes: Regular, CTA Bilaterally Gastrointestinal: Yes: Soft, Distention (mild), Hypoactive Bowel Sounds, Tenderness (upper abdomen bilat, epigastric, no R/G), Tenderness, Epigastrium, Other (well-healed laparoscopic scars) ...Rectal Exam: Yes: Deferred Renal/: No: CVA Tenderness - Left, CVA Tenderness - Right Musculoskeletal: No: Joint Stiffness, Joint Swelling Extremities: No: Cool, Cyanosis Edema: No Peripheral Pulses WNL: Yes Integumentary: No: Jaundice, Rash Neurological: Yes: Alert, Oriented Psychiatric: Yes: Alert, Oriented Labs: CBC, BMP 01/22/18 08:20 01/22/18 08:20 CMP Sodium 141 mmol/L (136-145) 01/22/18 08:20 Potassium 4.3 mmol/L (3.5-5.1) 01/22/18 08:20 Chloride 109 mmol/L (98-107) H 01/22/18 08:20 Carbon Dioxide 25 mmol/L (21-32) 01/22/18 08:20 Anion Gap 7 (8-16) L 01/22/18 08:20 BUN 18 mg/dL (7-18) 01/22/18 08:20 Creatinine 0.7 mg/dL (0.55-1.02) 01/22/18 08:20 Creat Clearance w eGFR > 60 (>60) 01/22/18 08:20 Random Glucose 113 mg/dL (74-106) H 01/22/18 08:20 Lactic Acid 0.9 mmol/L (0.0-2.0) 01/22/18 08:20 Calcium 8.4 mg/dL (8.5-10.1) L 01/22/18 08:20 Phosphorus 2.9 mg/dL (2.5-4.9) 01/22/18 08:20 Magnesium 2.3 mg/dL (1.8-2.4) 01/22/18 08:20 Total Bilirubin 0.5 mg/dL (0.2-1.0) 01/22/18 08:20 AST 14 U/L (15-37) L 01/22/18 08:20 ALT 14 U/L (12-78) 01/22/18 08:20 Alkaline Phosphatase 60 U/L (45-117) 01/22/18 08:20 Total Protein 7.1 g/dl (6.4-8.2) 01/22/18 08:20 Albumin 3.5 g/dl (3.4-5.0) 01/22/18 08:20 Lipase 112 U/L (73-393) 01/21/18 23:01 INR, PTT INR 1.05 (0.82-1.09) 01/22/18 08:20 Imaging - Results X-ray: Report Reviewed, Image Reviewed (AXRs reviewed, NGT in stomach, coiled; no free air) Cat Scan: Report Reviewed, Image Reviewed (images personally reviewed from 01/22 and 01/15 - descending colon mass present on both, ovaries pexied to both sides, left is near/adjacent to level of colon mass with small amt of fluid present, dilated, fluid-filled SB/LB proximal to lesion, s/p hysterectomy) Problem List - Problems (1) Small bowel obstruction Assessment/Plan: admitted to medicine NPO/NGT/IVF GI/DVT prophylaxis pain meds prn, but limit narcotics as able appears to be secondary to obstructing descending colon mass GI also consulted may not be able to scope acutely if pt does not open up, may need surgery which could involve colostomy and possible left oophorectomy primary team trying to get records from September [facility] visit to [facility] discussed with Dr. 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
[2018-01-22] MEDS ORDERED: morphine SULFATE 4 MG/ML VIAL IVPUSH ONE (14:07)
[2018-01-22] MEDS: HEPARIN NA (PORCINE) 5,000 UNITS/ML 1ML VIAL SQ SCH ×2 (14:14→21:27)
--- NOTE | 2018-01-22 15:09 | MSN ---
Progress Note (SOAP) - Subjective Chief Complaint: Nausea, Vomiting and Abdominal pain History of Present Illness: HPI: Patient is a 37 year old female with pertinent past medical hx of diverticulitis (September 2017) and cervical cancer (2014) that presented to the ER after 3 days of nausea, vomiting, abdominal pain and constipation. The patient stated that over this time period she had cramping like pain diffusely in the abdomen described as 10/10 with bilious/non-bloody vomiting that occurred throughout the day. The patient endorses one small bowel movement with the use of an OTC fleet enema. This morning the patient stated feeling better when she woke up. The patient denied any abdominal pain while laying and no nausea. As the morning progressed the patient stated that she began feeling the recurrence of cramping abdominal pain and nausea. The patient was given 2mg and she reported resolution of her symptoms. The patient is complaining now only of fatigue and uncomfortably from the NG tube. ROS: Negative for chest pain, SOB, fever, and chills ED course: notable for the placement of an NG tube and starting of N/S - Current Medications Current Medications: Active Medications Heparin Sodium (Porcine) (Heparin -) 5,000 unit SQ TID [facility] Last Admin: 01/22/18 14:14 Dose: 5,000 unit Sodium Chloride (Normal Saline -) 1,000 mls @ 150 mls/hr IV ASDIR [facility] Last Admin: 01/22/18 14:11 Dose: 150 mls/hr Morphine Sulfate (Morphine Sulfate) 4 mg IVPUSH Q3H PRN PRN Reason: PAIN LEVEL 6-10 - Objective Vital Signs: Vital Signs Temperature 98.2 F 01/22/18 09:02 Pulse Rate 84 01/22/18 09:02 Respiratory Rate 18 01/22/18 09:02 Blood Pressure 138/69 01/22/18 09:02 O2 Sat by Pulse Oximetry (%) 98 01/22/18 09:00 Constitutional: Yes: Well Nourished, Calm, Moderate Distress HENT: Yes: Atraumatic, Normocephalic, Hoarseness Neck: Yes: Supple, Trachea Midline Cardiovascular: Yes: Regular Rate and Rhythm, S1, S2 Respiratory: Yes: Regular, CTA Bilaterally Gastrointestinal: Yes: Soft, Hyperactive Bowel Sounds Peripheral Pulses: Left Doralis Pedis: 2+, Right Dorsalis Pedis: 2+ Edema: No Neurological: Yes: Cran Nerves II-XII Intact ...Motor Strength: Yes: LUE (4/5), LLE (4/5), RUE (4/5 ), RLE (4/5) Psychiatric: Yes: Alert, Oriented Labs Lab Results: CBC, BMP 01/22/18 08:20 01/22/18 08:20 Problem List - Problems (1) Bowel obstruction Code(s): K56.609 - UNSP INTESTNL OBST, UNSP TO PARTIAL VERSUS COMPLETE OBST Qualifiers: Intestinal obstruction type: unspecified Intestinal obstruction extent: unspecified extent Qualified Code(s): K56.609 - Unspecified intestinal obstruction, unspecified as to partial versus complete obstruction (2) Generalized abdominal pain Code(s): R10.84 - GENERALIZED ABDOMINAL PAIN (3) Large bowel obstruction Code(s): K56.609 - UNSP INTESTNL OBST, UNSP TO PARTIAL VERSUS COMPLETE OBST (4) 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 Code(s): D37.4 - NEOPLASM OF UNCERTAIN BEHAVIOR OF COLON (5) Vomiting Code(s): R11.10 - VOMITING, UNSPECIFIED Qualifiers: Vomiting type: unspecified Vomiting Intractability: intractable Nausea presence: with nausea Qualified Code(s): R11.2 - Nausea with vomiting, unspecified (6) Acute diarrhea Code(s): R19.7 - DIARRHEA, UNSPECIFIED Assessment/Plan Assessment/Plan: Patient is a 37 year old female with pertinent past medical hx of diverticulitis (September of 2017) and cervical cancer (2014) that presented with 3 days of abdominal pain, vomiting and diarrhea, found on CT to have bowel obstruction from descending colonic mass. # Large Bowel obstruction - CT on 01/22 showed decending colon mass obstructing the large bowel - Continue NPO - continue N/S - continue morphine 4mg PRN for pain - case discussed with GI Dr. Freeman who feel that due to acute obstuction GI consult would have no benefit - General Surgeon Dr. moreira was consulted and is awaiting medical records from previous stay at [facility] so that a surgical decision can be made #Leukocytosis - Resolved - Likely reactionary DVT Prophylaxis - Heparin 5000 sub q TID DISPO - admitted to med surg, awaiting surgical decision
--- NOTE | 2018-01-22 15:53 | EKG ---
Test Reason : Blood Pressure : / mmHG Vent. Rate : 062 BPM Atrial Rate : 062 BPM P-R Int : 126 ms QRS Dur : 078 ms QT Int : 412 ms P-R-T Axes : 037 -05 005 degrees QTc Int : 418 ms NORMAL SINUS RHYTHM VOLTAGE CRITERIA FOR LEFT VENTRICULAR HYPERTROPHY ABNORMAL ECG WHEN COMPARED WITH ECG OF 22-JAN-2018 03:17, NO SIGNIFICANT CHANGE WAS FOUND Confirmed by MD Pj, Jesus ([id number]) on 01/22/2018 3:52:50 PM Referred By: ALEX MINAYA Confirmed By:Jesus Oliva MD
--- NOTE | 2018-01-22 17:21 | CON.GI ---
Consult - Past Medical History [employer]: Yes: Syncope Renal/: Yes: Cancer (cervical 2015) ...: No (s/p hyst) - Past Surgical History Past Surgical History: Yes: Hysterectomy (laparoscopic/vaginal, complete). No: Oopherectomy (ovaries pexied up out of pelvis for XRT) - Alcohol/Substance Use Hx Alcohol Use: Yes (rarely) History of Substance Use: reports: None - Smoking History Smoking history: Never smoked Have you smoked in the past 12 months: No - Social History ADL: Independent Home Medications - Allergies Allergies/Adverse Reactions: Allergies Allergy/AdvReac Type Severity Reaction Status Date / Time No Known Allergies Allergy Verified 01/21/18 21:22 - Home Medications Home Medications: Ambulatory Orders NK [No Known Home Medication] 01/22/18 Family Disease History - Family Disease History Other Family History: cousins - one with brain and one with bone cancer, at 5 and 15 yrs old Physical Exam-GI Vital Signs: Vital Signs Temperature 98.5 F 01/22/18 14:00 Pulse Rate 67 01/22/18 14:00 Respiratory Rate 18 01/22/18 09:02 Blood Pressure 117/72 01/22/18 14:00 O2 Sat by Pulse Oximetry (%) 98 01/22/18 09:00 Labs: CBC, BMP 01/22/18 08:20 01/22/18 08:20 INR, PTT INR 1.05 (0.82-1.09) 01/22/18 08:20
[2018-01-22] MEDS ORDERED: BENZOCAINE/MENTH/CETYLPYRD CL 1 EACH LOZENGE MM PRN (18:56)
--- NOTE | 2018-01-22 18:56 | PN ---
Progress Note (short form) - Note Progress Note: Pt reports her cervical CA was stage 1B, and she had surgery to reduce the chemo and XRT she would need for treatment. She has four children, ages 4-15. She has small and large bowel obstruction from descending colon mass. Had long discussion with patient's mother with assistance for [facility] from [facility] in person and answered all questions. "Diverticulitis" in September treated with antibiotics could have been microperforation of malignant lesion. Family will try to get CD of imaging from that hospital for us to review. Discussed with patient risks, benefits and alternatives of left colectomy, colostomy and possible left oophorectomy including but not limited to bleeding, infection, injury to adjacent structures, intestinal leak or injury, intraabdominal abscess, hernia or dehiscence, need for further procedures; alternatives include no surgery with attendant risk of perforation, sepsis, . Patient desires to proceed with operation - will take to OR tomorrow at 3pm for above. Informed consent signed for same. Discussed with Urology Dr. Porfirio Garza as well, who will place temporary left ureteral catheter tomorrow at start of procedure. He will get consent in holding. Pt understands that NGT will remain until colostomy is functioning postoperatively. Will order cepacol lozenges for throat discomfort. 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
--- NOTE | 2018-01-22 19:11 | PN ---
Physical Exam: SUBJECTIVE: Patient seen and examined at bedside. States that the NGT is hurting her throat and feels uncomfortable. Pt also with continued abdominal pain, similar to her initial episode that brought her to the hospital. Denies MORENO , fever, chills, SOB, or chest pain or pressure. OBJECTIVE: Vital Signs Period Temp Pulse Resp BP Sys/Luna Pulse Ox Last 24 Hr 97.9 F-98.5 F 67-84 18-20 117-138/69-86 98-98 GENERAL: The patient appears uncomfortable. awake, alert, and fully oriented, in moderate distress HEAD: Normal with no signs of trauma. EYES: PERRL, extraocular movements intact, sclera anicteric, conjunctiva clear. ENT: Ears normal, nares patent, oropharynx clear without exudates, dry mucous membranes. NECK: Trachea midline, supple. LUNGS: Breath sounds equal, clear to auscultation bilaterally, no wheezes, no crackles, no accessory muscle use. HEART: Regular rate and rhythm, S1, S2 without murmur, rub or gallop. ABDOMEN: Soft, distended, diffusely tender to palpation with guarding. hypoactive bowel sounds. EXTREMITIES: 2+ posterior tibial pulses, warm, well-perfused, no edema. NEUROLOGICAL: Cranial nerves II through XII grossly intact. Motor strength 4/5 in upper and lower extremities, sensation intact PSYCH: Normal mood, normal affect. SKIN: Warm, dry, normal turgor, no rashes or lesions noted Laboratory Results - last 24 hr 01/21/18 01/21/18 01/22/18 23:01 23:01 08:20 WBC 11.9 H D 8.3 D RBC 4.31 3.93 Hgb 13.8 12.5 Hct 40.1 36.8 MCV 93.1 93.6 MCH 32.0 31.7 MCHC 34.4 33.9 RDW 13.4 13.2 Plt Count 333 D 274 MPV 9.5 9.3 Neutrophils % 90.1 H D 78.2 Lymphocytes % 7.1 L D 14.2 D Monocytes % 2.7 L 7.4 D Eosinophils % 0.0 D 0.0 Basophils % 0.1 0.2 PT with INR INR PTT (Actin FS) Sodium 139 Potassium 4.8 Chloride 105 Carbon Dioxide 22 Anion Gap 12 BUN 19 H Creatinine 0.8 Creat Clearance w eGFR > 60 Random Glucose 165 H Lactic Acid Calcium 9.8 Phosphorus Magnesium Total Bilirubin 0.5 D AST 14 L ALT 19 Alkaline Phosphatase 71 Total Protein 8.8 H Albumin 4.4 Lipase 112 Blood Type Antibody Screen 01/22/18 01/22/18 01/22/18 08:20 08:20 08:20 WBC RBC Hgb Hct MCV MCH MCHC RDW Plt Count MPV Neutrophils % Lymphocytes % Monocytes % Eosinophils % Basophils % PT with INR 11.90 INR 1.05 PTT (Actin FS) 29.0 Sodium 141 Potassium 4.3 Chloride 109 H Carbon Dioxide 25 Anion Gap 7 L BUN 18 Creatinine 0.7 Creat Clearance w eGFR > 60 Random Glucose 113 H Lactic Acid Calcium 8.4 L Phosphorus 2.9 Magnesium 2.3 Total Bilirubin 0.5 AST 14 L ALT 14 Alkaline Phosphatase 60 Total Protein 7.1 Albumin 3.5 Lipase Blood Type O POSITIVE Antibody Screen Negative 01/22/18 08:20 Creatinine Random Glucose Lactic Acid 0.9 Calcium Blood Type Antibody Screen Active Medications Generic Name Dose Route Start Last Admin Trade Name Freq PRN Reason Stop Dose Admin Benzocaine/Menthol 1 each 01/22/18 18:56 Cepacol Lozenge - MM Q2H PRN SORE THROAT Heparin Sodium (Porcine) 5,000 unit 01/22/18 14:00 01/22/18 14:14 Heparin - SQ 5,000 unit TID REGGIE Administration Sodium Chloride 1,000 mls @ 150 mls/hr 01/22/18 02:15 01/22/18 14:11 Normal Saline - IV 150 mls/hr ASDIR REGGIE Administration Morphine Sulfate 4 mg 01/22/18 14:07 01/22/18 18:05 Morphine Sulfate IVPUSH 4 mg Q3H PRN Administration PAIN LEVEL 6-10 Pantoprazole Sodium 40 mg 01/23/18 10:00 Protonix Iv IVPUSH DAILY REGGIE Imaging -RUQ Sono: limited visualization of liver, GB distended without stones or thickening, trace fluid in villeda's pouch -Abd pelvis CT: high grade L colon obstruction related to distal descending colon mass, small amount ascites -Abd XR: NGT confirmed, no pneumoperitoneum, dilated loops - small bowel over R iliac -Abd XR: with same findings as above, SBO confirmed ASSESSMENT/PLAN: This is a 37 yr old F with hx diverticulitis (Sep 2017) with diffuse abdominal pain, nausea,and vomiting admitted for small bowel obstruction. #SBO -pt with high grade L colon obstruction, related to distal descending colon mass. Likely colon CA -NG tube to wall suction -NPO -Continue IV NS 150 cc/hr -Cephacol lozenges for throat discomfort 2/2 NGT -Seen by surgery, Dr. Erickson - for left colectomy, colostomy and possible left oophorectomy - OR 3pm tomorrow -F/u NYP Farideh results from past diverticulitis episode (Sep 2017) -Pain control morphine 4mg IVP q3h PRN -QTc WNL - can give zofran for nausea #Hx cervical CA, distal descending mass -F/u CA 125, 19-9, CEA #mild leukocytosis - resolved -likely reactive, has since resolved #F/E/N NS 150 cc/hr continue to follow lytes NPO #PPX Hep SQ 5000 TID Visit type - Emergency Visit Emergency Visit: No - New Patient This patient is new to me today: Yes Date on this admission: 01/22/18 - Critical Care Critical Care patient: No
[2018-01-23] MEDS: morphine SULFATE 4 MG/ML VIAL IVPUSH PRN ×3 (00:50→08:34)
[2018-01-23] MEDS: SODIUM CHLORIDE 1,000 ML IV SCH ×3 (02:28→11:58)
[2018-01-23] MEDS: HEPARIN NA (PORCINE) 5,000 UNITS/ML 1ML VIAL SQ SCH ×4 (05:10→22:54)
--- NOTE | 2018-01-23 09:05 | PN ---
<Shital Connelly - Last Filed: 01/23/18 17:12> Physical Exam: SUBJECTIVE: Patient seen and examined at bedside. No acute events overnight; NGT draining clear liquid. Today, pt c/o diffuse abdominal pain and nausea upon receiving pain meds. For OR procedure confirmed 3pm with Dr. Erickson. Denies MORENO, fever,chills, or chest pain. OBJECTIVE: Vital Signs Period Temp Pulse Resp BP Sys/Luna Pulse Ox Last 24 Hr 98.4 F-98.9 F 65-78 18-20 117-133/32-74 98 GENERAL: The patient appears uncomfortable. Awake, alert, and fully oriented, in mild distress. HEAD: Normal with no signs of trauma. EYES: PERRL, extraocular movements intact, sclera anicteric, conjunctiva clear. ENT: Ears normal, nares patent, oropharynx clear without exudates, moist mucous membranes. NECK: Trachea midline, full range of motion, supple. LUNGS: Breath sounds equal, clear to auscultation bilaterally, no wheezes, no crackles, no accessory muscle use. +decreased inspiratory effort HEART: Regular rate and rhythm, S1, S2 without murmur, rub or gallop. ABDOMEN: Soft, obese, tender in mid-epigastric region. distended, hypoactive bowel sounds. EXTREMITIES: 2+ posterior tibial pulses, warm, well-perfused, no edema. NEUROLOGICAL: Cranial nerves II through XII grossly intact. Normal speech, gait not observed. PSYCH: Normal mood, normal affect. SKIN: Warm, dry, normal turgor Laboratory Results - last 24 hr 01/22/18 01/22/18 01/22/18 08:20 08:20 08:20 PT with INR 11.90 INR 1.05 PTT (Actin FS) 29.0 Sodium 141 Potassium 4.3 Chloride 109 H Carbon Dioxide 25 Anion Gap 7 L BUN 18 Creatinine 0.7 Creat Clearance w eGFR > 60 Random Glucose 113 H Lactic Acid Calcium 8.4 L Phosphorus 2.9 Magnesium 2.3 Total Bilirubin 0.5 AST 14 L ALT 14 Alkaline Phosphatase 60 Total Protein 7.1 Albumin 3.5 Blood Type O POSITIVE Antibody Screen Negative 01/22/18 08:20 PT with INR INR PTT (Actin FS) Sodium Potassium Chloride Carbon Dioxide Anion Gap BUN Creatinine Creat Clearance w eGFR Random Glucose Lactic Acid 0.9 Calcium Phosphorus Magnesium Total Bilirubin AST ALT Alkaline Phosphatase Total Protein Albumin Blood Type Antibody Screen Active Medications Generic Name Dose Route Start Last Admin Trade Name Freq PRN Reason Stop Dose Admin Benzocaine/Menthol 1 each 01/22/18 18:56 Cepacol Lozenge - MM Q2H PRN SORE THROAT Heparin Sodium (Porcine) 5,000 unit 01/22/18 14:00 01/23/18 05:10 Heparin - SQ 5,000 unit TID REGGIE Administration Sodium Chloride 1,000 mls @ 150 mls/hr 01/22/18 02:15 01/23/18 04:53 Normal Saline - IV 150 mls/hr ASDIR REGGIE Administration Morphine Sulfate 4 mg 01/22/18 14:07 01/23/18 08:34 Morphine Sulfate IVPUSH 4 mg Q3H PRN Administration PAIN LEVEL 6-10 Pantoprazole Sodium 40 mg 01/23/18 10:00 Protonix Iv IVPUSH DAILY REGGIE Imaging -RUQ Sono: limited visualization of liver, GB distended without stones or thickening, trace fluid in villeda's pouch -Abd pelvis CT: high grade L colon obstruction related to distal descending colon mass, small amount ascites -Abd XR: NGT confirmed, no pneumoperitoneum, dilated loops - small bowel over R iliac -Abd XR: with same findings as above, SBO confirmed ASSESSMENT/PLAN: This is a 37 yr old F with hx diverticulitis (Sep 2017) with diffuse abdominal pain, nausea,and vomiting admitted for small bowel obstruction. #SBO -pt with high grade L colon obstruction, related to distal descending colon mass. Likely colon CA -has had decreased amount of stool over the last three months, worsened over the last week -family CA hx: two cousins with cancer: 5 y/o with bone CA, 15 y/o with brain CA () -NG tube to wall suction -NPO -Continue IV NS 150 cc/hr -Cephacol lozenges for throat discomfort 2/2 NGT -For left colectomy, colostomy and possible left oophorectomy with Dr. Erickson- OR 3pm today -Pain control morphine 2mg IVP q2h PRN -QTc WNL - can give zofran for nausea #Hx cervical CA (etiology HPV), distal descending mass -F/u CA 125, 19-9, CEA - still pending #mild leukocytosis - resolved -likely reactive, has since resolved #F/E/N NS 150 cc/hr continue to follow lytes NPO #PPX hold hep SQ TID as for surgery SCD's #Dispo for OR and subsequent post-op care Visit type - Emergency Visit Emergency Visit: No - New Patient This patient is new to me today: No - Critical Care Critical Care patient: No <JeanineChandler - Last Filed: 01/23/18 20:01> Physical Exam: Vital Signs Temperature 97.6 F 01/23/18 15:37 Pulse Rate 76 01/23/18 15:37 Respiratory Rate 22 01/23/18 15:37 Blood Pressure 128/68 01/23/18 15:37 O2 Sat by Pulse Oximetry (%) 98 01/23/18 09:00 CBCD WBC 7.1 K/mm3 (4.0-10.0) 01/23/18 08:08 RBC 3.86 M/mm3 (3.60-5.2) 01/23/18 08:08 Hgb 12.7 GM/dL (10.7-15.3) 01/23/18 08:08 Hct 36.5 % (32.4-45.2) 01/23/18 08:08 MCV 94.6 fl (80-96) 01/23/18 08:08 MCHC 34.8 g/dl (32.0-36.0) 01/23/18 08:08 RDW 13.4 % (11.6-15.6) 01/23/18 08:08 Plt Count 284 K/MM3 (134-434) 01/23/18 08:08 MPV 9.9 fl (7.5-11.1) 01/23/18 08:08 CMP Sodium 140 mmol/L (136-145) 01/23/18 08:08 Potassium 4.6 mmol/L (3.5-5.1) 01/23/18 08:08 Chloride 108 mmol/L (98-107) H 01/23/18 08:08 Carbon Dioxide 24 mmol/L (21-32) 01/23/18 08:08 Anion Gap 8 (8-16) 01/23/18 08:08 BUN 18 mg/dL (7-18) 01/23/18 08:08 Creatinine 0.7 mg/dL (0.55-1.02) 01/23/18 08:08 Creat Clearance w eGFR > 60 (>60) 01/22/18 08:20 Random Glucose 113 mg/dL (74-106) H 01/23/18 08:08 Calcium 8.1 mg/dL (8.5-10.1) L 01/23/18 08:08 Total Bilirubin 0.5 mg/dL (0.2-1.0) 01/22/18 08:20 AST 14 U/L (15-37) L 01/22/18 08:20 ALT 14 U/L (12-78) 01/22/18 08:20 Alkaline Phosphatase 60 U/L (45-117) 01/22/18 08:20 Total Protein 7.1 g/dl (6.4-8.2) 01/22/18 08:20 Albumin 3.5 g/dl (3.4-5.0) 01/22/18 08:20 Current Medications Generic Name Dose Route Start Last Admin Trade Name Freq PRN Reason Stop Dose Admin Benzocaine/Menthol 1 each 01/22/18 18:56 Cepacol Lozenge - MM Q2H PRN SORE THROAT Heparin Sodium (Porcine) 5,000 unit 01/22/18 14:00 01/23/18 14:00 Heparin - SQ 5,000 unit TID REGGIE Administration Sodium Chloride 1,000 mls @ 150 mls/hr 01/22/18 02:15 01/23/18 11:58 Normal Saline - IV 150 mls/hr ASDIR REGGIE Administration Morphine Sulfate 2 mg 01/23/18 10:59 01/23/18 11:57 Morphine Sulfate IVPUSH 2 mg Q2H PRN Administration PAIN LEVEL 6-10 Pantoprazole Sodium 40 mg 01/23/18 10:00 01/23/18 09:26 Protonix Iv IVPUSH 40 mg DAILY REGGIE Administration Home Medications Medication Instructions Recorded NK [No Known Home Medication] 01/22/18
[2018-01-23 09:24] LABS: HEMATOCRIT 36.5 % (32.4-45.2); HEMOGLOBIN 12.7 GM/dL (10.7-15.3); MCH 32.9 pg (25.7-33.7); MCHC 34.8 g/dl (32.0-36.0); MEAN CELL VOLUME 94.6 fl (80-96); MEAN PLT VOLUME 9.9 fl (7.5-11.1); PLATELET COUNT 284 K/MM3 (134-434); RBC 3.86 M/mm3 (3.60-5.2); RDW 13.4 % (11.6-15.6); WHITE BLOOD COUNT 7.1 K/mm3 (4.0-10.0)
[2018-01-23] MEDS ORDERED: PANTOPRAZOLE SODIUM 40 MG VIAL IVPUSH SCH (10:00)
[2018-01-23 10:08] LABS: CHLORIDE 108 mmol/L (98-107); POTASSIUM 4.6 mmol/L (3.5-5.1); SODIUM 140 mmol/L (136-145)
[2018-01-23 10:33] LABS: ANION GAP 8 (8-16); BLOOD UREA NITROGEN 18 mg/dL (7-18); CALCIUM 8.1 mg/dL (8.5-10.1); CO2 24 mmol/L (21-32); CREATININE 0.7 mg/dL (0.55-1.02); GLUCOSE,RANDOM 113 mg/dL (74-106)
[2018-01-23] MEDS ORDERED: morphine SULFATE 4 MG/ML VIAL IVPUSH PRN (10:59)
--- NOTE | 2018-01-23 14:58 | CON.GU ---
Consult Consult Specialty:: Referred by:: Georgina Reason for Consultation:: L ureteral stenting - History of Present Illness Chief Complaint: abd pain History of Present Illness: 37 yo f w hx diverticulitis, cervical ca s/p partial hysterectomy and XRT adm w abd pain found to have L colon mass and LBO and SBO and cons req for L ureteral catheterization prior to L colectomy. 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 No: Oopherectomy (ovaries pexied up out of pelvis for XRT) - Alcohol/Substance Use Hx Alcohol Use: Yes (rarely) History of Substance Use: reports: None - Smoking History Smoking history: Never smoked Have you smoked in the past 12 months: No - Social History ADL: Independent Home Medications - Allergies Allergies/Adverse Reactions: Allergies Allergy/AdvReac Type Severity Reaction Status Date / Time No Known Allergies Allergy Verified 01/21/18 21:22 - Home Medications Home Medications: Ambulatory Orders NK [No Known Home Medication] 01/22/18 Family Disease History - Family Disease History Other Family History: cousins - one with brain and one with bone cancer, at 5 and 15 yrs old Physical Exam- Vital Signs: Vital Signs Temperature 98.4 F 01/23/18 09:00 Pulse Rate 68 01/23/18 09:00 Respiratory Rate 20 01/23/18 09:00 Blood Pressure 134/78 01/23/18 09:00 O2 Sat by Pulse Oximetry (%) 98 01/23/18 09:00 Gastrointestinal: Yes: Distention, Tenderness Labs: CBC, BMP 01/23/18 08:08 01/23/18 08:08 Imaging - Results Cat Scan: Report Reviewed Assessment/Plan Imp: L colon mass Plan: cysto L ureteral catheterization
[2018-01-23] MEDS ORDERED: LIDOCAINE HCL/PF 2% SDV 5ML VIAL ONE (15:06)
[2018-01-23] MEDS ORDERED: PROPOFOL 20 ML ONE ×2 (15:06)
[2018-01-23] MEDS ORDERED: fentaNYL CITRATE 250 MCG/5 ML VIAL ONE ×3 (15:06→17:05)
[2018-01-23] MEDS ORDERED: SUCCINYLCHOLINE CHLORIDE 200 MG/10 ML VIAL ONE (15:07)
[2018-01-23] MEDS ORDERED: ROCURONIUM BROMIDE 50 MG/5 ML VIAL ONE ×3 (15:07→16:56)
[2018-01-23] MEDS ORDERED: MIDAZOLAM HCL 2 MG/2 ML SINGLE DOSE VIAL ONE (15:07)
--- NOTE | 2018-01-23 15:08 | OP ---
Operative Note - Note: Pre-Operative Diagnosis: L colon mass, LBO, SBO Operation: cystoscopy and L ureteral catheterization Post-Operative Diagnosis: Same as Pre-op Surgeon: Porfirio Garza Anesthesiologist/MEDICAL INSTRUCTOR: Nikki Schofield Anesthesia: General Estimated Blood Loss (mls): 0 Drains & Tubes with Location: 6 fr open ended ureteral catheter Operative Report Dictated: Yes
[2018-01-23] MEDS ORDERED: CEFOXITIN SODIUM 2 GM IVPB ONE (15:10)
[2018-01-23] MEDS ORDERED: CEFOXITIN SODIUM 2 GM in DEXTROSE 5%-WATER - 100 ML IVPB ONE (15:15)
[2018-01-23] MEDS ORDERED: cefOXitin SODIUM 1 GM VIAL (RESTRICTED TO ID) IVPB ONE (15:23)
[2018-01-23] MEDS ORDERED: SEVOFLURANE 250 ML BTL ONE (15:28)
--- NOTE | 2018-01-23 16:20 | OP ---
DATE OF OPERATION: 01/23/2018 PREOPERATIVE DIAGNOSIS: Left colon mass, small bowel obstruction, large bowel obstruction. POSTOPERATIVE DIAGNOSIS: Left colon mass, small bowel obstruction, large bowel obstruction. PROCEDURE: Cystoscopy, left ureteral catheterization. SURGEON: Porfirio Montague M.D. PAPERBOARD BOX MAKER: None. ANESTHESIA: General via endotracheal tube. SPECIMENS: None. CULTURES: None. DRAINS: A 6 Dutch open ended left ureteral catheter, and a 16 Dutch Parikh. ESTIMATED BLOOD LOSS: None. COMPLICATIONS: None. DESCRIPTION OF PROCEDURE: DESCRIPTION OF PROCEDURE: Patient was brought into the operating room, placed on the operating table in the supine position. After administration of general anesthesia, intravenous antibiotics were administered. Sequential compression devices were placed, and the patient was placed in dorsal lithotomy position. The vagina and perineum were prepped and draped in the usual sterile manner. The 22 Dutch cystoscope was inserted into the bladder with the obturator in place. The obturator was removed and urine was evacuated. 30-degree telescope was inserted and cystoscopy was performed. This demonstrated no foreign bodies, tumors, stones, or inflammation. Both ureteral orifices were in the usual location with clear efflux bilaterally. Left ureteral orifice was cannulated with a 0.03 guidewire, which was advanced to the level of the left renal pelvis with no fluoroscopic guidance. The 6 Dutch open end ureteral catheter was now inserted over the guidewire to the level of the renal pelvis, and the guidewire was removed. The bladder was left full. Instrument removed. A 16 Dutch Parikh catheter was placed, to gravity drain. The ureteral catheter adaptor was placed on the Parikh drainage bag, and both were attached to drainage. She tolerated procedure well. The catheter was secured to the Parikh with tape. She will now undergo laparotomy with Dr. Erickson, and this will be dictated separately. PORFIRIO MONTAGUE M.D. [id number]
[2018-01-23] MEDS ORDERED: BENZOIN/ALOE VERA/STORAX/TOLU 58 ML BOTTLE ONE (17:27)
[2018-01-23] MEDS ORDERED: NEOSTIGMINE METHYLSULFATE 0.5 MG/ML - 10 ML MDV ONE (17:55)
[2018-01-23] MEDS ORDERED: GLYCOPYRROLATE 0.2 MG/1 ML VIAL ONE (17:56)
[2018-01-23] MEDS ORDERED: HYDROmorphone *PCA* 10MG/50ML DISP.SYRIN PCA ONE (20:22)
[2018-01-23] MEDS ORDERED: ACETAMINOPHEN INJECTION 100 ML IVPB ONE (20:23)
[2018-01-23] MEDS ORDERED: ONDANSETRON 4 MG/2 ML VIAL IVPUSH PRN (20:26)
[2018-01-23] MEDS ORDERED: LACTATED RINGERS SOLUTION 1,000 ML IV SCH (20:30)
[2018-01-23] MEDS ORDERED: HYDROmorphone *PCA* 10MG/50ML DISP.SYRIN PCA SCH (20:30)
[2018-01-23] MEDS ORDERED: ACETAMINOPHEN 1000 MG/100 ML VIAL (NON FORMULARY) IVPB ONE (20:45)
--- NOTE | 2018-01-23 20:56 | OP ---
Operative Note - Note: Operative Date: 01/23/18 Pre-Operative Diagnosis: intestinal obstruction secondary to descending colon mass Operation: partial left colectomy en bloc with left oophorectomy, colostomy, mobilization of splenic flexure Findings: clear/yellow ascites on entry, very shortened mesenteric root; descending colon with hard mass stuck to left ovary, which was pexied to left sidewall - all taken en bloc; splenic flexure mobilized, additional margin taken from proximal stump prior to colostomy formation, no palpable lymph nodes, no other bowel lesions appreciated; ureteric catheter removed at end of case Post-Operative Diagnosis: Same as Pre-op Surgeon: Ady Erickson Car Dumper Operator Helper: Arnoldo Martínez (w/Dr. Adamaris Mayo) Anesthesiologist/SHANK CUTTER: Nikki cShofield (w/Dr. Kai Nevarez) Anesthesia: General Specimens Removed: portion of descending colon en bloc with left ovary; and additional proximal colon margin sent to pathology Estimated Blood Loss (mls): 100 Drains & Tubes with Location: NG (preop), Parikh, colostomy Drains, Volume Out (mls): 300 (UOP) Fluid Volume Replaced (mls): 2,200 (crystalloid) Operative Report Dictated: Yes
[2018-01-23] MEDS ORDERED: SODIUM CHLORIDE 1,000 ML IV SCH (21:30)
[2018-01-23] MEDS: CEFOXITIN SODIUM 2 GM in DEXTROSE 5%-WATER - 100 ML IVPB SCH (21:45)
[2018-01-23] MEDS ORDERED: BENZOCAINE/MENTH/CETYLPYRD CL 1 EACH LOZENGE MM PRN (21:58)
[2018-01-23] MEDS ORDERED: HEPARIN NA (PORCINE) 5,000 UNITS/ML 1ML VIAL ONE (22:02)
[2018-01-24] MEDS: CEFOXITIN SODIUM 2 GM in DEXTROSE 5%-WATER - 100 ML IVPB SCH ×5 (02:15→20:50)
[2018-01-24] MEDS: SODIUM CHLORIDE 1,000 ML IV SCH ×3 (07:23→20:48)
[2018-01-24] MEDS: HYDROmorphone *PCA* 10MG/50ML DISP.SYRIN PCA SCH ×2 (07:23→21:00)
[2018-01-24] MEDS: HEPARIN NA (PORCINE) 5,000 UNITS/ML 1ML VIAL SQ SCH ×3 (07:37→22:26)
[2018-01-24 08:07] LABS: CARCINOEMBRYONIC ANTIGEN 3.5 ng/mL (0.0-4.7)
--- NOTE | 2018-01-24 08:55 | PN ---
Progress Note, Physician History of Present Illness: s/p partial left colectomy with L oophorectomy, colostomy for obstruction secondary to descending colon mass Pt seen and examined in bed. Using VICE PRESIDENT OF SOFTWARE DEVELOPMENT with good effect. NG and Parikh in place. Colostomy bag emptied earlier for 200ml liquid brown stool. Taking some ice chips. Urine still blood-tinged. - Current Medication List Current Medications: Active Medications Benzocaine/Menthol (Cepacol Lozenge -) 1 each MM Q2H PRN PRN Reason: SORE THROAT Heparin Sodium (Porcine) (Heparin -) 5,000 unit SQ TID [facility] Last Admin: 01/24/18 07:37 Dose: 5,000 unit Hydromorphone HCl (Dilaudid Material Inspector -) 10 mg VICE PRESIDENT OF SOFTWARE DEVELOPMENT VICE PRESIDENT OF SOFTWARE DEVELOPMENT REGGIE PRN Reason: Protocol Stop: 01/30/18 20:27 Last Admin: 01/24/18 07:23 Dose: Not Given Cefoxitin Sodium 2 gm/ (Dextrose) 100 mls @ 200 mls/hr IVPB Q6H-IV REGGIE PRN Reason: Protocol Stop: 01/24/18 21:14 Last Admin: 01/24/18 02:15 Dose: 200 mls/hr Sodium Chloride (Normal Saline -) 1,000 mls @ 100 mls/hr IV ASDIR [facility] Last Admin: 01/24/18 07:23 Dose: Not Given Pantoprazole Sodium (Protonix Iv) 40 mg IVPUSH DAILY [facility] - Objective Vital Signs: Vital Signs Temperature 97.4 F L 01/24/18 04:56 Pulse Rate 82 01/24/18 04:56 Respiratory Rate 20 01/24/18 04:56 Blood Pressure 133/79 01/24/18 04:56 O2 Sat by Pulse Oximetry (%) 100 01/23/18 22:37 Constitutional: Yes: Well Nourished, No Distress, Calm Eyes: Yes: Conjunctiva Clear, EOM Intact HENT: Yes: Atraumatic, Normocephalic, Other (NGT in place, clear output, having some ice chips) Cardiovascular: Yes: Regular Rate and Rhythm Respiratory: Yes: Regular, CTA Bilaterally Gastrointestinal: Yes: Soft, Hypoactive Bowel Sounds, Tenderness (right-sided and incisional, appropriate for postop), Other (colostomy somewhat dusky, patent , productive of liquid light brown stool, 200 emptied earlier this am). No: Tenderness, Rebound Genitourinary: Yes: Parikh Present, Hematuria (urine still blood-tinged, 300 overnight, ~150 in meter now) Extremities: No: Cool, Cyanosis Integumentary: Yes: Incision (midline dressed). No: Rash Wound/Incision: Yes: Dressing Dry and Intact. No: Dressing Removed Neurological: Yes: Alert, Oriented Labs: pending Problem List - Problems (1) Large bowel obstruction Assessment/Plan: POD1 s/p partial left colectomy en bloc with left oophorectomy for obstruction secondary to descending colon mass, colostomy doing well Parikh in place until hematuria clears NG in place - will consider removing later today, ok to keep with ice chips for now VICE PRESIDENT OF SOFTWARE DEVELOPMENT for pain complete periop antibiotics later today NPO/IVF getting IS to use OOB to chair and ambulate as able today colostomy beginning to function pt will need VNS arranged for new ostomy care on discharge home family available for teaching to assist with care pt has 57mm ostomy appliance and bag Code(s): K56.609 - UNSP INTESTNL OBST, UNSP TO PARTIAL VERSUS COMPLETE OBST (2) Small bowel obstruction Code(s): K56.609 - UNSP INTESTNL OBST, UNSP TO PARTIAL VERSUS COMPLETE OBST (3) 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
[2018-01-24 09:05] LABS: BASO % 0.1 % (0-2.0); HEMATOCRIT 39.2 % (32.4-45.2); HEMOGLOBIN 12.9 GM/dL (10.7-15.3); LYMPH % 6.8 % (8-40); MCH 31.6 pg (25.7-33.7); MEAN CELL VOLUME 95.8 fl (80-96); MEAN PLT VOLUME 9.8 fl (7.5-11.1); MONO % 9.1 % (3.8-10.2); PLATELET COUNT 272 K/MM3 (134-434); RBC 4.09 M/mm3 (3.60-5.2); RDW 13.8 % (11.6-15.6); WHITE BLOOD COUNT 8.1 K/mm3 (4.0-10.0)
--- NOTE | 2018-01-24 09:09 | PN ---
Teaching Attending Note Name of Resident: Shital Connelly ATTENDING PHYSICIAN STATEMENT I saw and evaluated the patient. I reviewed the resident's note and discussed the case with the resident. I agree with the resident's findings and plan as documented. SUBJECTIVE: Patient is comfortable with no acute distress. No shortness of breath, comfortable, mother at bedside. OBJECTIVE: Vital Signs Temperature 97.4 F L 01/24/18 04:56 Pulse Rate 82 01/24/18 04:56 Respiratory Rate 20 01/24/18 04:56 Blood Pressure 133/79 01/24/18 04:56 O2 Sat by Pulse Oximetry (%) 100 01/23/18 22:37 CBCD WBC 7.1 K/mm3 (4.0-10.0) 01/23/18 08:08 RBC 3.86 M/mm3 (3.60-5.2) 01/23/18 08:08 Hgb 12.7 GM/dL (10.7-15.3) 01/23/18 08:08 Hct 36.5 % (32.4-45.2) 01/23/18 08:08 MCV 94.6 fl (80-96) 01/23/18 08:08 MCHC 34.8 g/dl (32.0-36.0) 01/23/18 08:08 RDW 13.4 % (11.6-15.6) 01/23/18 08:08 Plt Count 284 K/MM3 (134-434) 01/23/18 08:08 MPV 9.9 fl (7.5-11.1) 01/23/18 08:08 CMP Sodium 140 mmol/L (136-145) 01/23/18 08:08 Potassium 4.6 mmol/L (3.5-5.1) 01/23/18 08:08 Chloride 108 mmol/L (98-107) H 01/23/18 08:08 Carbon Dioxide 24 mmol/L (21-32) 01/23/18 08:08 Anion Gap 8 (8-16) 01/23/18 08:08 BUN 18 mg/dL (7-18) 01/23/18 08:08 Creatinine 0.7 mg/dL (0.55-1.02) 01/23/18 08:08 Creat Clearance w eGFR > 60 (>60) 01/22/18 08:20 Random Glucose 113 mg/dL (74-106) H 01/23/18 08:08 Calcium 8.1 mg/dL (8.5-10.1) L 01/23/18 08:08 Total Bilirubin 0.5 mg/dL (0.2-1.0) 01/22/18 08:20 AST 14 U/L (15-37) L 01/22/18 08:20 ALT 14 U/L (12-78) 01/22/18 08:20 Alkaline Phosphatase 60 U/L (45-117) 01/22/18 08:20 Total Protein 7.1 g/dl (6.4-8.2) 01/22/18 08:20 Albumin 3.5 g/dl (3.4-5.0) 01/22/18 08:20 Current Medications Generic Name Dose Route Start Last Admin Trade Name Freq PRN Reason Stop Dose Admin Benzocaine/Menthol 1 each 01/23/18 21:58 Cepacol Lozenge - MM Q2H PRN SORE THROAT Heparin Sodium (Porcine) 5,000 unit 01/23/18 22:00 01/24/18 07:37 Heparin - SQ 5,000 unit TID REGGIE Administration Hydromorphone HCl 10 mg 01/23/18 21:58 01/24/18 07:23 Dilaudid [employer] St[employer] - ACCOUNTING ADMINISTRATOR 01/30/18 20:27 Not Given ACCOUNTING ADMINISTRATOR REGGIE Protocol Cefoxitin Sodium 2 gm/ 100 mls @ 200 mls/hr 01/24/18 03:00 01/24/18 02:15 Dextrose IVPB 01/24/18 21:14 200 mls/hr Q6H-IV REGGIE Administration Protocol Sodium Chloride 1,000 mls @ 100 mls/hr 01/23/18 21:58 01/24/18 07:23 Normal Saline - IV Not Given ASDIR REGGIE Pantoprazole Sodium 40 mg 01/24/18 10:00 Protonix Iv IVPUSH DAILY REGGIE Home Medications Medication Instructions Recorded NK [No Known Home Medication] 01/22/18 PE: Abdomen: positive for abdominal gauze at surgical site, hypoactive bowel sounds ASSESSMENT AND PLAN: Patient is a 37 y/o female with h/o cervical cancer s/p Hysterectomy and chrmo/ Rtx who presented with abd pain and N/V and was found to have small and large bowel obstruction # POD1 s/p partial left colectomy ( portion of descending colon en bloc) with left oophorectomy for obstruction secondary to descending colon mass with colostomy due to having Small and large todd obstruction. CT with sigmoid mass. dr. Erickson. is on the case . Gi and uro appreciated # Mild leukocytosis : improved # h/o cervical cancer. DVT PX. heparin SQ.
[2018-01-24 09:24] LABS: ANION GAP 7 (8-16); BLOOD UREA NITROGEN 14 mg/dL (7-18); CALCIUM 7.6 mg/dL (8.5-10.1); CHLORIDE 107 mmol/L (98-107); CO2 27 mmol/L (21-32); CREATININE 0.8 mg/dL (0.55-1.02); GLUCOSE,RANDOM 135 mg/dL (74-106); MAGNESIUM 2.1 mg/dL (1.8-2.4); POTASSIUM 4.9 mmol/L (3.5-5.1); SODIUM 141 mmol/L (136-145)
[2018-01-24] MEDS ORDERED: PT OWN MED DRAWER 7, Y5N ONE (09:41)
[2018-01-24] MEDS: PANTOPRAZOLE SODIUM 40 MG VIAL IVPUSH SCH (09:52)
--- NOTE | 2018-01-24 10:58 | OP ---
DATE OF OPERATION: 01/23/2018 PREOPERATIVE DIAGNOSIS: Intestinal obstruction secondary to descending colon mass. POSTOPERATIVE DIAGNOSIS: Intestinal obstruction secondary to descending colon mass. PROCEDURE PERFORMED: Partial left colectomy en bloc with left oophorectomy, mobilization of splenic flexure and end-colostomy. SURGEON: Ady Erickson M.D. ASSISTANTS: 1. Arnoldo Martínez MD 2. Rony Mayo MD ANESTHESIA: General endotracheal. ESTIMATED BLOOD LOSS: 100 mL. FLUIDS: 2200 mL of crystalloid. URINE OUTPUT: 300 mL. SPECIMEN: A portion of descending colon en bloc with left ovary, sent to Pathology, and additional proximal colon margin, also sent to Pathology. DRAINS: Preoperatively placed NG tube and Parikh catheter placed intraoperatively. The left ureteral catheter placed by Urology was removed at the end of the case. Colostomy with 57mm appliance and bag. FINDINGS: There was clear/yellow ascites on entry. There was a very shortened mesenteric root. The descending colon had a hard mass stuck to the left ovary, which had been pexied to the left side wall. All were taken en bloc as a specimen. The splenic flexure was mobilized. An additional margin was taken from the proximal descending colon stump prior to formation of the colostomy. There were no palpable lymph nodes. There were no other bowel lesions appreciated. Again, the ureteric catheter was removed at the end of the case. DISPOSITION: Stable and extubated to PACU. INDICATIONS FOR PROCEDURE: The patient is a 37-year-old female with a history of cervical cancer 3 years ago, status post laparoscopic assisted vaginal hysterectomy, chemo and radiation therapy, whose ovaries were pexied up out of the pelvis bilaterally, who presented to the emergency room with upper abdominal pain associated with nausea and vomiting. A CT scan was done, showing small bowel and large bowel obstruction secondary to a descending colon mass, which on retrospect was also present [address] scan, when she was in the emergency room also for abdominal pain without vomiting. The left ovary was visible and pexied at about the same level as this mass just lateral to the area of colon involved. In September she was also treated at an outside hospital for diverticulitis, with antibiotics, but had not had a followup colonoscopy. She was admitted to the medical service and had an NG tube placed, and she was seen in consultation. Given the element of large bowel obstruction and a very significant looking lesion on CT scan, it was felt that she would not have any chance of opening up without surgery, and the mass needed to be removed. So surgery was discussed with the patient as well as her family. The risks, benefits and alternatives of left partial colectomy, colostomy and possible left oophorectomy, including but not limited to bleeding, infection, injury to adjacent structures, intestinal leak or injury, intra-abdominal abscess, hernia or dehiscence, need for further procedures, and alternatives inclusive of no surgery, with attendant risks of perforation, sepsis and , were discussed with the patient, who was agreeable to proceed with operation, and informed consent was signed for the same. Discussion was held preop with GRAPH[facility] SPECIALIST Oncology Dr. Tinajero regarding the possibility of needing to take the ovary, and technique agreed on. Urology was consulted to place a left ureteral catheter immediately prior to the procedure in the OR, to assist with clear identification of the ureter and minimize any chance of injury to it, also knowing that we might need to take the left ovary and would be able to take everything above the ureter as far as a vascular pedicle goes, if necessary. Dr. Garza provided this consultation and portion of the procedure. His operative note is dictated separately. OPERATIVE TECHNIQUE: The patient was brought to the operating room and laid supine on the operating table. Sequential compression devices were applied to bilateral lower extremities. Two grams of cefoxitin was given as preoperative antibiotic. After induction and intubation by Anesthesia, the patient was placed in [place] stirrups, and Dr. Garza proceeded with the urological portion of the procedure, including placement of the Parikh catheter. At the conclusion of cystoscopy and left ureteral catheterization, the patient was then returned to the supine position, her right arm tucked, and her abdomen prepped and draped in sterile fashion. A midline incision from above the umbilicus to the pubis was marked and incised with a scalpel, going around the right side of the umbilicus, and carried through the subcutaneous tissues with electrocautery, until the abdominal wall fascia was identified along the length of the incision. It was then scored in the upper half of the incision until preperitoneal fat was visible along that length. The preperitoneal fat was spread and the peritoneum grasped with a clamp, at which point it was recognized that we had already entered the peritoneal cavity. Thus, a finger was inserted into the peritoneal cavity to protect the bowel, and the incision opened both superiorly and inferiorly the rest of the way to the limits of the incision. There was some clear yellow ascites present in the patient's abdomen, which was suctioned. Initial attention was turned towards eviscerating the small intestine, and this was run from the middle portion distally until the terminal ileum was reached, with no identification of any small bowel lesions. It was then run from the distal aspect proximally until the ligament of Treitz was identified. A very, very short mesentery and mesenteric root were identified, potentially thought to be due to the patient's previous pelvic radiation. In any case, the small bowel was unable to be completely eviscerated from the abdominal cavity. The incision was extended a short distance superiorly, and a Bookwalter retractor was placed and moist laparotomy pads used to assist in packing the small bowel away from the left side wall. The left colon was palpated and the mass easily identified at approximately the level of the umbilicus, against the left side wall of the abdomen. It was very hard, in the middle of the descending colon. The small bowel was mildly but not significantly dilated, and the colon proximal to the mass was also mildly dilated. The pelvis was free of adhesions, and no masses were appreciated in the pelvis. Although initially there appeared to be a plane between a portion of the left ovary that had been pexied up to the side wall at that location and the mass itself, the colon was intimately stuck to the ovary, which was then in turn stuck to the peritoneum of the side wall, ultimately necessitating taking these structures en bloc. Once we had our bowel packed off and could visualize the mass, we were able to identify the anticipated distal margin of resection, at least 5 cm from the mass and its association with the ovary. The sigmoid colon in this area appeared very normal and at approximately the junction of the descending and sigmoid colon, we were able to get around the colon and create a window in the mesentery adjacent to the bowel wall at the desired transection point. A BRADY-60 stapler with a blue load was then used to divide the colon at approximately the junction of the descending and sigmoid for the distal margin. The distal stump was tagged with two 0 Prolene sutures, one at each of the corners. The LigaSure was used to begin taking the mesentery down toward the root at the distal edge of the specimen, for a short distance. We also carried the dissection begun at the distal end of the specimen up along the white line of Toldt and the sidewall alongside the left colon, taking a portion of peritoneum en bloc with the specimen, where the ovary and mass were stuck to it, to ensure continuity of the specimen. We then turned our attention to mobilizing the specimen above the level of the mass to identify our proximal transection point. The Bookwalter and small bowel packings were repositioned to facilitate this. Once we had good exposure, we continued mobilizing the colon proximal to the mass itself. We were able to identify a site at least 4 to 5 cm proximal to the mass, where we could get around the entire bowel wall and create a window in the mesentery to pass the BRADY-80 stapler with a blue load and transect the proximal margin. A small remaining portion of attachment required an additional firing of the BRADY-60 stapler with a blue load. Once both ends of the specimen had been transected, again the dissection of the peritoneal covering at the sidewall was continued superiorly and then angled posteriorly down toward the mesentery. The LigaSure was used, as well as Bovie cautery, to very meticulously divide the mesentery. The vascular pedicle to the specimen was a branch of the left colic artery, and the LigaSure was used to divide the mesentery up to but not including the vascular pedicle, which was then clamped and cut between 2 right angles and tied with 0 silk ties. The final attachments of the specimen to the left sidewall were divided primarily with Bovie cautery, taking a small portion, again, of peritoneum off the sidewall, exposing a bit of the retroperitoneal fat; and, ultimately the specimen was removed en bloc as a portion of the descending colon with attached left ovary and patch of peritoneum. The vascular pedicle to the ovary was also taken with the LigaSure. It was sealed proximally with 2 firings, and then sealed slightly closer to the ovary prior to being cut and . The ureteral stent was palpable deeper than this dissection in the retroperitoneal tissues, and we were very confident that we were nowhere near the ureter during this dissection. The specimen was then marked with a silk stitch at the proximal margin and passed off the table, to be sent to Pathology. Hemostasis was achieved throughout the case with electrocautery and a few silk ties where necessary. We had a few small bleeding points from omental bleeders, and a couple at the mesentery, as we continued to mobilize the proximal colon end to be used for the colostomy. Attention was now turned toward mobilizing the splenic flexure so that we would have enough length to bring a colostomy out through the left-sided abdominal wall. Mobilization of the splenic flexure required, again, repositioning of the Bookwalter retractor and repacking of the small bowel away from the area. The omentum was from the colon up into the left upper quadrant. The white line of Toldt was followed. A combination of blunt and cautery dissection, as well as some LigaSure were used ultimately to mobilize the splenic flexure completely, until the proximal limb could be brought down, but we noted that it was still tethered very tightly by the short mesentery, and some additional mesenteric tissue was taken to make sure that we would have enough length to come through the abdominal wall. At one point there was some bleeding from small mesenteric branches, which were clamped and tied with silk ties. We then noted that the distal end of the proximal stump had become somewhat dusky, and an additional short length of proximal margin was taken with a blue load of the BRADY-80 stapler. With mobilization of the splenic flexure and some additional scoring of the peritoneum over the mesentery, without taking any further mesenteric tissue or vessels, we now had enough length to get the colostomy to the left abdominal wall just above the umbilical level and maintain perfusion. Thus, the additional proximal margin was sent as a second specimen. Attention was then turned to identifying the site for the colostomy in the abdominal wall on the left side. A spot within the rectus muscle just above the umbilicus and off to the left was chosen as the site for the colostomy. A Rolando clamp was placed on the skin, and a ho-chunk of skin excised with a scalpel. A core of subcutaneous fat was then removed with electrocautery, down to the fascia. The fascia itself was incised in cruciate fashion with the cautery. The rectus muscle was then split and the peritoneum also opened to allow 2 to 3 fingers through the peritoneal and fascial openings. Babcocks were placed on the end of the proximal stump, and it was brought out through the opening and noted to lie very nicely in place. The Babcocks were placed on the outside, and this was left for maturation at the end of the case. The Bookwalter had been removed at this point, and irrigation of the abdominal cavity undertaken, with suctioning of the fluid. The NG tube was first palpated in the stomach and ensured to be in correct position for Anesthesia to make sure it was secure at the patient's nares. The entire operative area was inspected for hemostasis. Several laps were placed to ensure there did not appear to be any active bleeding anywhere. Hemostasis was noted to be excellent. All the laparotomy pads were removed from the abdominal cavity, and the abdomen was irrigated thoroughly and suctioned clear of the remaining fluid. The small bowel was returned to its anatomic position. The omentum was drawn down over the bowel contents. A malleable was placed to protect the intra-abdominal contents , and attention was turned to closing the abdominal fascia. Gloves were changed prior to beginning the closure. This was accomplished with two number 1 looped PDS sutures in running fashion, starting at both ends and tying the knot below the level of the umbilicus. The wound itself was then irrigated with saline solution, and hemostasis assured with electrocautery. The skin was closed with omar, and attention then turned to maturing the colostomy. The midline incision was covered with a clean green towel. The staple line was removed with electrocautery. The edge of the ostomy was grasped with Nevin clamps. At the medial aspect, there was noted to be a small split in the edge of the bowel wall, prior to beginning maturation. So, a running 3-0 Vicryl suture was used to reapproximate the vertical split in the wall. Then 3-0 Vicryl sutures were used to mature the colostomy circumferentially in the usual fashion. There was a small amount of liquid stool present after opening the bowel, and after maturation of the stoma, a fingertip was inserted to ensure easy passage down through the fascia and the lumen, after which a small amount of liquid yellowish-green stool was also apparent. This was suctioned from the area. The skin was then cleaned. Benzoin was applied around the edges of the ostomy, and a 57-mm ostomy appliance cut eccentrically, to keep the appliance as far from the midline incision as possible, and secured in place around the stoma. A 57-mm bag was then attached with a clip on the end. The midline incision was then uncovered and dressed with gauze and tape. The ureteral stent on the left side which had been placed and left attached to the Parikh catheter was removed at the end of the case. The Parikh catheter was left in at the end of the case. The NG tube had been resecured by Anesthesia, after ensuring appropriate positioning in the stomach. Counts were correct at the end of the procedure, both prior to and after fascial closure. The patient was then awakened and extubated by Anesthesia. She was moved back to a stretcher and taken to the recovery room in stable condition, having tolerated the procedure well. Dr. Martínez and Dr. Mayo were essential assistants throughout the procedure. Dr. Martínez assisted primarily with entry into the abdominal cavity and with dissection and removal of the specimen. Dr. Mayo was instrumental in assisting with mobilization of the splenic flexure, fascial closure and maturation of the colostomy. Ronel Tobar/[id number] MTDD
--- NOTE | 2018-01-24 13:21 | PN ---
Progress Note (short form) - Note Progress Note: Anesthesia postop note 37 y/o F s/p GA for colon resection, colostomy, oophorectomy, left ureteral stent placement, iv container coordinator for postop pain management POD#1, vss, aaox3, pain well controlled with container coordinator, still npo Will continue container coordinator. No anesthesia complications.
--- NOTE | 2018-01-24 16:31 | PN ---
Physical Exam: SUBJECTIVE: Patient seen and examined at bedside. PO Day 1 s/p colon resection, colostomy, oophorectomy, left ureteral stent placement. Pt has been using CERAMICS TEST ENGINEER, nods to improvement in pain. NGT in place, denies MORENO, fever, chills, SOB, or chest pain. OBJECTIVE: Vital Signs Period Temp Pulse Resp BP Sys/Luna Pulse Ox Last 24 Hr 97.4 F-98.7 F 79-103 10-20 118-150/70-91 98-100 GENERAL: The patient is awake, alert, and fully oriented, in no acute distress. HEAD: Normal with no signs of trauma. EYES: PERRL, extraocular movements intact, sclera anicteric, conjunctiva clear. ENT: Ears normal, nares patent, oropharynx clear without exudates, moist mucous membranes. +NGT NECK: Trachea midline, supple. LUNGS: Breath sounds equal, clear to auscultation bilaterally, no wheezes, no crackles, no accessory muscle use. HEART: Regular rate and rhythm, S1, S2 without murmur, rub or gallop. ABDOMEN: Soft, obese, mildly TTP diffusely, nondistended, hypoactive bowel sounds, +colostomy with brown stool, dressing without dc EXTREMITIES: 2+ dorsalis pedis pulses, warm, well-perfused, no edema. NEUROLOGICAL: Cranial nerves II through XII grossly intact. Normal speech PSYCH: Normal mood, normal affect. SKIN: Warm, dry, normal turgor Laboratory Results - last 24 hr 01/23/18 01/24/18 01/24/18 08:08 07:11 07:11 WBC 8.1 RBC 4.09 Hgb 12.9 Hct 39.2 MCV 95.8 MCH 31.6 MCHC 33.0 RDW 13.8 Plt Count 272 MPV 9.8 Neutrophils % 84.0 H Lymphocytes % 6.8 L D Monocytes % 9.1 Eosinophils % 0.0 Basophils % 0.1 Sodium 141 Potassium 4.9 Chloride 107 Carbon Dioxide 27 Anion Gap 7 L BUN 14 Creatinine 0.8 Random Glucose 135 H Calcium 7.6 L Magnesium 2.1 Carcinoembryonic Ag 3.5 CA 19-9 Antigen 24 CA 125 Antigen 8.4 Active Medications Generic Name Dose Route Start Last Admin Trade Name Freq PRN Reason Stop Dose Admin Benzocaine/Menthol 1 each 01/23/18 21:58 05/10/18 09:52 Cepacol Lozenge - MM 1 each Q2H PRN Administration SORE THROAT Heparin Sodium (Porcine) 5,000 unit 01/23/18 22:00 01/24/18 07:37 Heparin - SQ 5,000 unit TID REGGIE Administration Hydromorphone HCl 10 mg 01/23/18 21:58 01/24/18 07:23 Dilaudid Management Consulting - CERAMICS TEST ENGINEER 01/30/18 20:27 Not Given CERAMICS TEST ENGINEER REGGIE Protocol Cefoxitin Sodium 2 gm/ 100 mls @ 200 mls/hr 01/24/18 03:00 01/24/18 09:12 Dextrose IVPB 01/24/18 21:14 200 mls/hr Q6H-IV REGGIE Administration Protocol Sodium Chloride 1,000 mls @ 100 mls/hr 01/23/18 21:58 01/24/18 10:04 Normal Saline - IV 100 mls/hr ASDIR REGGIE Administration Pantoprazole Sodium 40 mg 01/24/18 10:00 01/24/18 09:52 Protonix Iv IVPUSH 40 mg DAILY REGGIE Administration Imaging -RUQ Sono: limited visualization of liver, GB distended without stones or thickening, trace fluid in villeda's pouch -Abd pelvis CT: high grade L colon obstruction related to distal descending colon mass, small amount ascites -Abd XR: NGT confirmed, no pneumoperitoneum, dilated loops - small bowel over R iliac -Abd XR: with same findings as above, SBO confirmed ASSESSMENT/PLAN: This is a 37 yr old F with hx diverticulitis (Sep 2017) with diffuse abdominal pain, nausea,and vomiting admitted for small bowel obstruction. #SBO; s/p colon resection, colostomy, oophorectomy, left ureteral stent placement - PO Day 1 -pt with high grade L colon obstruction, related to distal descending colon mass. Likely colon CA -+NGT -NPO, ice chips permitted -Surgery - Dr. Erickson -Continue IV NS 100 cc/hr -Cephacol lozenges for throat discomfort 2/2 NGT -Cefoxitin 2gm IVPB x 1- post op abx 24hrs -Pain control - CERAMICS TEST ENGINEER pump -protonix 40 mg IVP qd -encourage incentive spirometer use -francis until hematuria cleared -QTc WNL - can give zofran for nausea -OOB #Hx cervical CA (etiology HPV), distal descending mass -F/u CA 125, 19-9, CEA - WNL #mild leukocytosis - resolved -likely reactive, has since resolved #F/E/N NS 100 cc/hr continue to follow lytes NPO #PPX will restart hep 5000 sq TID 10pm - as per surgery SCD's #Dispo post-op care Visit type - Emergency Visit Emergency Visit: No - New Patient This patient is new to me today: No - Critical Care Critical Care patient: No
[2018-01-25] MEDS: HEPARIN NA (PORCINE) 5,000 UNITS/ML 1ML VIAL SQ SCH ×3 (06:24→21:23)
[2018-01-25 08:54] LABS: BASO % 0.2 % (0-2.0); EOS % 0.1 % (0-4.5); HEMATOCRIT 31.4 % (32.4-45.2); HEMOGLOBIN 10.6 GM/dL (10.7-15.3); LYMPH % 15.2 % (8-40); MCH 32.1 pg (25.7-33.7); MCHC 33.7 g/dl (32.0-36.0); MEAN CELL VOLUME 95.3 fl (80-96); MEAN PLT VOLUME 9.3 fl (7.5-11.1); NEUT % 72.5 % (42.8-82.8); PLATELET COUNT 199 K/MM3 (134-434); RDW 13.4 % (11.6-15.6); WHITE BLOOD COUNT 3.8 K/mm3 (4.0-10.0)
[2018-01-25 09:27] LABS: ANION GAP 8 (8-16); BLOOD UREA NITROGEN 9 mg/dL (7-18); CALCIUM 7.5 mg/dL (8.5-10.1); CHLORIDE 105 mmol/L (98-107); CO2 26 mmol/L (21-32); GLUCOSE,RANDOM 110 mg/dL (74-106); POTASSIUM 3.8 mmol/L (3.5-5.1); SODIUM 139 mmol/L (136-145)
[2018-01-25 09:28] LABS: CREATININE 0.6 mg/dL (0.55-1.02)
[2018-01-25] MEDS: PANTOPRAZOLE SODIUM 40 MG VIAL IVPUSH SCH (09:28)
--- NOTE | 2018-01-25 11:23 | PN ---
Progress Note, Physician Chief Complaint: upper abd pain, n/v History of Present Illness: s/p partial left colectomy with en bloc L oophorectomy, colostomy for obstruction secondary to descending colon mass Pt seen and examined in bed. Using PATHOLOGY LABORATORY DIRECTOR with good effect. NG and Parikh out, has voided, no nausea. Tolerating ice chips and some water. Colostomy with 45ml recorded last shift. Using IS to about 1000ml. Has ambulated to nurses' station. - Current Medication List Current Medications: Active Medications Benzocaine/Menthol (Cepacol Lozenge -) 1 each MM Q2H PRN PRN Reason: SORE THROAT Last Admin: 01/24/18 09:52 Dose: 1 each Heparin Sodium (Porcine) (Heparin -) 5,000 unit SQ TID REGGIE Last Admin: 01/25/18 06:24 Dose: 5,000 unit Hydromorphone HCl (Dilaudid Molded Grid And Parts Inspector -) 10 mg PATHOLOGY LABORATORY DIRECTOR PATHOLOGY LABORATORY DIRECTOR REGGIE PRN Reason: Protocol Stop: 01/30/18 20:27 Last Admin: 01/24/18 21:00 Dose: 10 mg Sodium Chloride (Normal Saline -) 1,000 mls @ 20 mls/hr IV ASDIR REGGIE Pantoprazole Sodium (Protonix Iv) 40 mg IVPUSH DAILY [facility] Last Admin: 01/25/18 09:28 Dose: 40 mg - Objective Vital Signs: Vital Signs Temperature 98.1 F 01/25/18 10:00 Pulse Rate 94 H 01/25/18 10:00 Respiratory Rate 18 01/25/18 10:00 Blood Pressure 126/77 01/25/18 10:00 O2 Sat by Pulse Oximetry (%) 99 01/24/18 09:00 Vital Signs Period Temp Pulse Resp BP Sys/Luna Pulse Ox Last 24 Hr 97.5 F-99.9 F 79-99 18-20 118-138/70-85 Intake & Output 01/24/18 01/25/18 01/25/18 23:59 07:59 15:59 Intake Total 2500 0 Output Total 325 400 Balance 2175 -400 Intake: IV 2200 Normal Saline - 1,000 ml 2200 @ 100 mls/hr IV ASDIR REGGIE Rx#:[id number] IVPB 300 Oral 0 Output: Urine 300 400 Void 300 400 Colostomy 25 Other: Voiding Method Bedpan Toilet # Unmeasured Voids Void 1 3 Bowel Movement No Constitutional: Yes: Well Nourished, No Distress, Calm Eyes: Yes: Conjunctiva Clear, EOM Intact HENT: Yes: Atraumatic, Normocephalic Gastrointestinal: Yes: Soft, Abdomen, Obese, Distention (mild), Tenderness ( mainly LUQ and incisional, no R/G), Other (colostomy patent with small amount of loose stool at opening, mucosa somewhat dusky, mildly edematous) Genitourinary: No: Parikh Present, Incontinence Extremities: No: Cool, Cyanosis Integumentary: Yes: Incision (midline with omar). No: Jaundice, Rash Wound/Incision: Yes: Clean/Dry, Well Approximated, [place] Intact, Open to air ( left open to air), Dressing Dry and Intact, Dressing Removed. No: Draining, Reddened Neurological: Yes: Alert, Oriented Labs: CBC, BMP 01/25/18 07:45 01/25/18 07:45 Problem List - Problems (1) Large bowel obstruction Assessment/Plan: POD2 s/p partial left colectomy en bloc with left oophorectomy for obstruction secondary to descending colon mass, colostomy doing well Parikh and NG out yesterday, voiding and without nausea tolerating ice chips and sips of clears PATHOLOGY LABORATORY DIRECTOR for pain - states using frequently completed periop antibiotics will decrease IVF to KVO for PATHOLOGY LABORATORY DIRECTOR only advance to clear liquids no need for AXR at this time OOB to chair and ambulate as able continue using IS and coughing with expectoration, advised to splint abdomen for coughing colostomy beginning to function, anticipate edema will resolve over next couple days pt will need VNS arranged for new ostomy care on discharge home family available for teaching to assist with care pt has 57mm ostomy appliance and bag pathology pending Code(s): K56.609 - UNSP INTESTNL OBST, UNSP TO PARTIAL VERSUS COMPLETE OBST (2) Small bowel obstruction Code(s): K56.609 - UNSP INTESTNL OBST, UNSP TO PARTIAL VERSUS COMPLETE OBST (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
--- NOTE | 2018-01-25 12:47 | PN ---
Progress Note (short form) - Note Progress Note: Anesthesiology Pain Service 37 y.o. POD# 2 s/p Colon resection, creation of ostomy with left oopherectomy. On SWITCHBOARD OPERATOR for post-op pain control. Pt. is resting but awake in bed. She states she is doing better today in terms of pain. She denies n/v. Still NPO, though PO clears to be started shortly. VSS. 37 y.o. woman s/p colon resection with stable post-operative course. Will continue SWITCHBOARD OPERATOR for now since she has not tolerated PO as of yet. Will likely transition to PO analgesia in next 24-48 hours.
[2018-01-25] MEDS: SODIUM CHLORIDE 1,000 ML IV SCH (14:44)
--- NOTE | 2018-01-25 16:14 | PN ---
<Shital Connelly - Last Filed: 01/25/18 16:14> Physical Exam: SUBJECTIVE: Patient seen and examined at bedside. Overnight, pt voiding, OOB. No acute events overnight. NGT has been removed. Today, pt states that her abdominal pain feels better when she uses her HEAT TREAT FURNACE OPERATOR. Otherwise, without complaints. No tenderness at incision site, colostomy with stool. Denies MORENO, fever, chills, SOB, or chest pain. OBJECTIVE: Vital Signs Period Temp Pulse Resp BP Sys/Luna Pulse Ox Last 24 Hr 98.1 F-99.9 F 86-99 18-20 120-138/72-85 96 GENERAL: The patient is awake, alert, and fully oriented, in no acute distress. HEAD: Normal with no signs of trauma. EYES: PERRL, extraocular movements intact, sclera anicteric, conjunctiva clear. ENT: Ears normal, nares patent, oropharynx clear without exudates, moist mucous membranes. NECK: Trachea midline, supple. LUNGS: Breath sounds equal, clear to auscultation bilaterally, no wheezes, no crackles, no accessory muscle use. HEART: Regular rate and rhythm, S1, S2 without murmur, rub or gallop. ABDOMEN: Soft, obese, mildly TTP diffusely, nondistended, +colostomy with brown stool, +omar intact - without erythema or edema EXTREMITIES: 2+ dorsalis pedis pulses, warm, well-perfused, no edema. NEUROLOGICAL: Cranial nerves II through XII grossly intact. Normal speech PSYCH: Normal mood, normal affect. SKIN: Warm, dry, normal turgor Laboratory Results - last 24 hr 01/25/18 01/25/18 07:45 07:45 WBC 3.8 L D RBC 3.30 L Hgb 10.6 L D Hct 31.4 L D MCV 95.3 MCH 32.1 MCHC 33.7 RDW 13.4 Plt Count 199 D MPV 9.3 Neutrophils % 72.5 Lymphocytes % 15.2 D Monocytes % 12.0 H Eosinophils % 0.1 D Basophils % 0.2 Sodium 139 Potassium 3.8 Chloride 105 Carbon Dioxide 26 Anion Gap 8 BUN 9 Creatinine 0.6 Random Glucose 110 H Calcium 7.5 L Active Medications Generic Name Dose Route Start Last Admin Trade Name Freq PRN Reason Stop Dose Admin Benzocaine/Menthol 1 each 01/23/18 21:58 01/24/18 09:52 Cepacol Lozenge - MM 1 each Q2H PRN Administration SORE THROAT Heparin Sodium (Porcine) 5,000 unit 01/23/18 22:00 01/25/18 14:44 Heparin - SQ 5,000 unit TID REGGIE Administration Hydromorphone HCl 10 mg 01/23/18 21:58 01/24/18 21:00 Dilaudid Videotape Operator - HEAT TREAT FURNACE OPERATOR 01/30/18 20:27 10 mg HEAT TREAT FURNACE OPERATOR REGGIE Administration Protocol Sodium Chloride 1,000 mls @ 20 mls/hr 01/25/18 10:53 01/25/18 14:44 Normal Saline - IV 20 mls/hr ASDIR REGGIE Administration Pantoprazole Sodium 40 mg 01/24/18 10:00 01/25/18 09:28 Protonix Iv IVPUSH 40 mg DAILY REGGIE Administration Imaging -RUQ Sono: limited visualization of liver, GB distended without stones or thickening, trace fluid in villeda's pouch -Abd pelvis CT: high grade L colon obstruction related to distal descending colon mass, small amount ascites -Abd XR: NGT confirmed, no pneumoperitoneum, dilated loops - small bowel over R iliac -Abd XR: with same findings as above, SBO confirmed ASSESSMENT/PLAN: This is a 37 yr old F with hx diverticulitis (Sep 2017) with diffuse abdominal pain, nausea,and vomiting admitted for small bowel obstruction. #SBO; s/p colon resection, colostomy, oophorectomy, left ureteral stent placement - PO Day 2 -pt with high grade L colon obstruction, related to distal descending colon mass. Likely colon CA. pathology pending -NGT has been removed -no AXR needed as per surgery -Continue IV NS 20 cc/hr - keep IV open -Cephacol lozenges for throat discomfort 2/2 NGT -Pain control - HEAT TREAT FURNACE OPERATOR pump; has been using frequently -protonix 40 mg IVP qd -encourage incentive spirometer use -francis until hematuria cleared -QTc WNL - can give zofran for nausea -OOB #Hx cervical CA (etiology HPV), distal descending mass -F/u CA 125, 19-9, CEA - WNL #mild leukocytosis - resolved -likely reactive, has since resolved #F/E/N IV NS 20 cc/hr to keep IV open continue to follow lytes clear liquid diet #PPX hep 5000 sq TID SCD's #Dispo post-op care will need VNS for new ostomy care upon dc Visit type - Emergency Visit Emergency Visit: No - New Patient This patient is new to me today: No - Critical Care Critical Care patient: No <Chandler Solorzano - Last Filed: 01/25/18 19:49> Physical Exam: Patient is feeling better, no bm yet, only belcing. Abdominal xray ordered for possible ileus but was discontinued by the surgeon. will continue to monitor. POD#2, agree with resident's note. Laboratory Results - last 24 hr 01/25/18 01/25/18 07:45 07:45 WBC 3.8 L D RBC 3.30 L Hgb 10.6 L D Hct 31.4 L D MCV 95.3 MCH 32.1 MCHC 33.7 RDW 13.4 Plt Count 199 D MPV 9.3 Neutrophils % 72.5 Lymphocytes % 15.2 D Monocytes % 12.0 H Eosinophils % 0.1 D Basophils % 0.2 Sodium 139 Potassium 3.8 Chloride 105 Carbon Dioxide 26 Anion Gap 8 BUN 9 Creatinine 0.6 Random Glucose 110 H Calcium 7.5 L Active Medications Generic Name Dose Route Start Last Admin Trade Name Freq PRN Reason Stop Dose Admin Benzocaine/Menthol 1 each 01/23/18 21:58 01/24/18 09:52 Cepacol Lozenge - MM 1 each Q2H PRN Administration SORE THROAT Heparin Sodium (Porcine) 5,000 unit 01/23/18 22:00 01/25/18 14:44 Heparin - SQ 5,000 unit TID REGGIE Administration Hydromorphone HCl 10 mg 01/23/18 21:58 01/24/18 21:00 Dilaudid Videotape Operator - HEAT TREAT FURNACE OPERATOR 01/30/18 20:27 10 mg HEAT TREAT FURNACE OPERATOR REGGIE Administration Protocol Sodium Chloride 1,000 mls @ 20 mls/hr 01/25/18 10:53 01/25/18 14:44 Normal Saline - IV 20 mls/hr ASDIR REGGIE Administration Pantoprazole Sodium 40 mg 01/24/18 10:00 01/25/18 09:28 Protonix Iv IVPUSH 40 mg DAILY REGGIE Administration
[2018-01-25] MEDS: HYDROmorphone *PCA* 10MG/50ML DISP.SYRIN PCA SCH (21:55)
[2018-01-26] MEDS: HEPARIN NA (PORCINE) 5,000 UNITS/ML 1ML VIAL SQ SCH ×3 (06:47→21:45)
[2018-01-26 08:04] LABS: BASO % 0.3 % (0-2.0); EOS % 1.4 % (0-4.5); HEMATOCRIT 28.5 % (32.4-45.2); HEMOGLOBIN 9.8 GM/dL (10.7-15.3); LYMPH % 16.5 % (8-40); MCH 32.5 pg (25.7-33.7); MCHC 34.5 g/dl (32.0-36.0); MEAN CELL VOLUME 94.1 fl (80-96); MEAN PLT VOLUME 8.9 fl (7.5-11.1); MONO % 10.2 % (3.8-10.2); NEUT % 71.6 % (42.8-82.8); PLATELET COUNT 207 K/MM3 (134-434); RBC 3.03 M/mm3 (3.60-5.2); RDW 12.9 % (11.6-15.6); WHITE BLOOD COUNT 3.6 K/mm3 (4.0-10.0)
[2018-01-26 08:31] LABS: CHLORIDE 104 mmol/L (98-107); POTASSIUM 3.3 mmol/L (3.5-5.1); SODIUM 138 mmol/L (136-145)
[2018-01-26 08:51] LABS: ANION GAP 8 (8-16); BLOOD UREA NITROGEN 7 mg/dL (7-18); CALCIUM 7.7 mg/dL (8.5-10.1); CO2 26 mmol/L (21-32); CREATININE 0.5 mg/dL (0.55-1.02); GLUCOSE,RANDOM 101 mg/dL (74-106)
[2018-01-26] MEDS: PANTOPRAZOLE SODIUM 40 MG VIAL IVPUSH SCH (10:01)
--- NOTE | 2018-01-26 12:35 | PN ---
Progress Note, Physician Chief Complaint: upper abd pain, n/v History of Present Illness: s/p partial left colectomy with en bloc L oophorectomy, colostomy for obstruction secondary to descending colon mass Pt seen and examined in bed. Using VICE PRESIDENT OF PROCUREMENT with good effect, used 3 times this morning. Has been up, ambulated, took shower. Tolerating clears, but feeling full quickly, has not had much yet. Colostomy with 25ml recorded overnight, per nurse just emptied for about 100ml, no sig gas in bag. Using IS to about 1000ml. - Current Medication List Current Medications: Active Medications Benzocaine/Menthol (Cepacol Lozenge -) 1 each MM Q2H PRN PRN Reason: SORE THROAT Last Admin: 01/24/18 09:52 Dose: 1 each Heparin Sodium (Porcine) (Heparin -) 5,000 unit SQ TID [facility] Last Admin: 01/26/18 06:47 Dose: 5,000 unit Hydromorphone HCl (Dilaudid Lumber Driver -) 10 mg VICE PRESIDENT OF PROCUREMENT VICE PRESIDENT OF PROCUREMENT [facility] PRN Reason: Protocol Stop: 01/30/18 20:27 Last Admin: 01/25/18 21:55 Dose: Not Given Sodium Chloride (Normal Saline -) 1,000 mls @ 20 mls/hr IV ASDIR [facility] Last Admin: 01/25/18 14:44 Dose: 20 mls/hr Pantoprazole Sodium (Protonix Iv) 40 mg IVPUSH DAILY [facility] Last Admin: 01/26/18 10:01 Dose: 40 mg - Objective Vital Signs: Vital Signs Temperature 99.1 F 01/26/18 09:00 Pulse Rate 91 H 01/26/18 09:00 Respiratory Rate 18 01/26/18 09:00 Blood Pressure 133/79 01/26/18 09:00 O2 Sat by Pulse Oximetry (%) 96 01/25/18 21:00 Vital Signs Period Temp Pulse Resp BP Sys/Luna Pulse Ox Last 24 Hr 98.6 F-99.9 F 83-99 18-20 122-157/75-87 96 Constitutional: Yes: Well Nourished, No Distress, Calm Eyes: Yes: Conjunctiva Clear, EOM Intact HENT: Yes: Atraumatic, Normocephalic Gastrointestinal: Yes: Soft, Abdomen, Obese, Distention (mild), Hypoactive Bowel Sounds, Tenderness (mild RLQ and incisional, no R/G), Other (colostomy patent, mucosa difficult to see, pink centrally, some liquid light brown stool in bag) Musculoskeletal: No: Joint Stiffness, Joint Swelling Extremities: No: Cool, Cyanosis Integumentary: Yes: Incision (midline with omar). No: Jaundice, Rash Wound/Incision: Yes: Clean/Dry, Well Approximated, [place] Intact, Open to air, Reddened (very slight pinkish to upper right aspect, no induration, no drainage , no direct tenderness) Neurological: Yes: Alert, Oriented Labs: CBC, BMP 01/26/18 07:15 01/26/18 07:15 K low, wbc still a little low Problem List - Problems (1) Large bowel obstruction Assessment/Plan: POD3 s/p partial left colectomy en bloc with left oophorectomy for obstruction secondary to descending colon mass, colostomy doing well voiding and without nausea tolerating clears but not taking much yet, feeling full may need to increase IVF if not hydrating well but would not do yet replete K+ VICE PRESIDENT OF PROCUREMENT for pain - would like to start weaning - will discuss w/anes start IV tylenol for baseline nonnarcotic pain control OOB to chair and ambulate regularly continue using IS and coughing with expectoration, advised to splint abdomen for coughing colostomy beginning to function, anticipate edema will resolve over next couple days pt will need VNS arranged for new ostomy care on discharge home family available for teaching to assist with care pt has 57mm ostomy appliance and bag pathology pending Code(s): K56.609 - UNSP INTESTNL OBST, UNSP TO PARTIAL VERSUS COMPLETE OBST (2) Small bowel obstruction Code(s): K56.609 - UNSP INTESTNL OBST, UNSP TO PARTIAL VERSUS COMPLETE OBST (3) 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
[2018-01-26] MEDS: SODIUM CHLORIDE 1,000 ML IV SCH (13:02)
[2018-01-26] MEDS: ACETAMINOPHEN 1000 MG/100 ML VIAL (NON FORMULARY) IVPB SCH ×2 (13:21→18:26)
--- NOTE | 2018-01-26 14:39 | PN ---
Progress Note (short form) - Note Progress Note: Patient is feeling better, just able to burb, unable to pass any gas. Vital Signs Temperature 98.5 F 01/26/18 14:33 Pulse Rate 85 01/26/18 14:33 Respiratory Rate 18 01/26/18 14:33 Blood Pressure 131/77 01/26/18 14:33 O2 Sat by Pulse Oximetry (%) 96 01/25/18 21:00 GENERAL: The patient is awake, alert, and fully oriented, in no acute distress. HEAD: Normal with no signs of trauma. EYES: PERRL, extraocular movements intact, sclera anicteric, conjunctiva clear. ENT: Ears normal, nares patent, oropharynx clear without exudates, moist mucous membranes. NECK: Trachea midline, supple. LUNGS: Breath sounds equal, clear to auscultation bilaterally, no wheezes, no crackles, no accessory muscle use. HEART: Regular rate and rhythm, S1, S2 without murmur, rub or gallop. ABDOMEN: hypoactive bowel sounds, +colostomy with brown stool, EXTREMITIES: 2+ dorsalis pedis pulses, warm, well-perfused, no edema. NEUROLOGICAL: Cranial nerves II through XII grossly intact. Normal speech PSYCH: Normal mood, normal affect. SKIN: Warm, dry, normal turgor CBCD WBC 3.6 K/mm3 (4.0-10.0) L 01/26/18 07:15 RBC 3.03 M/mm3 (3.60-5.2) L 01/26/18 07:15 Hgb 9.8 GM/dL (10.7-15.3) L 01/26/18 07:15 Hct 28.5 % (32.4-45.2) L 01/26/18 07:15 MCV 94.1 fl (80-96) 01/26/18 07:15 MCHC 34.5 g/dl (32.0-36.0) 01/26/18 07:15 RDW 12.9 % (11.6-15.6) 01/26/18 07:15 Plt Count 207 K/MM3 (134-434) 01/26/18 07:15 MPV 8.9 fl (7.5-11.1) 01/26/18 07:15 CMP Sodium 138 mmol/L (136-145) 01/26/18 07:15 Potassium 3.3 mmol/L (3.5-5.1) L 01/26/18 07:15 Chloride 104 mmol/L (98-107) 01/26/18 07:15 Carbon Dioxide 26 mmol/L (21-32) 01/26/18 07:15 Anion Gap 8 (8-16) 01/26/18 07:15 BUN 7 mg/dL (7-18) 01/26/18 07:15 Creatinine 0.5 mg/dL (0.55-1.02) L 01/26/18 07:15 Creat Clearance w eGFR > 60 (>60) 01/22/18 08:20 Random Glucose 101 mg/dL (74-106) 01/26/18 07:15 Calcium 7.7 mg/dL (8.5-10.1) L 01/26/18 07:15 Total Bilirubin 0.5 mg/dL (0.2-1.0) 01/22/18 08:20 AST 14 U/L (15-37) L 01/22/18 08:20 ALT 14 U/L (12-78) 01/22/18 08:20 Alkaline Phosphatase 60 U/L (45-117) 01/22/18 08:20 Total Protein 7.1 g/dl (6.4-8.2) 01/22/18 08:20 Albumin 3.5 g/dl (3.4-5.0) 01/22/18 08:20 Current Medications Generic Name Dose Route Start Last Admin Trade Name Freq PRN Reason Stop Dose Admin Acetaminophen 1,000 mg 01/26/18 13:00 01/26/18 13:21 Ofirmev Injection - IVPB 01/27/18 07:01 1,000 mg Q6H REGGIE Administration Benzocaine/Menthol 1 each 01/23/18 21:58 01/24/18 09:52 Cepacol Lozenge - MM 1 each Q2H PRN Administration SORE THROAT Heparin Sodium (Porcine) 5,000 unit 01/23/18 22:00 01/26/18 13:20 Heparin - SQ 5,000 unit TID REGGIE Administration Sodium Chloride 1,000 mls @ 20 mls/hr 01/25/18 10:53 01/26/18 13:02 Normal Saline - IV Not Given ASDIR REGGIE Pantoprazole Sodium 40 mg 01/24/18 10:00 01/26/18 10:01 Protonix Iv IVPUSH 40 mg DAILY REGGIE Administration Home Medications Medication Instructions Recorded NK [No Known Home Medication] 01/22/18 PE: Abdomen: positive for abdominal gauze at surgical site, hypoactive bowel sounds ASSESSMENT AND PLAN: Patient is a 37 y/o female with h/o cervical cancer s/p Hysterectomy and chrmo/ Rtx who presented with abd pain and N/V and was found to have small and large bowel obstruction # POD3 s/p partial left colectomy ( portion of descending colon en bloc) with left oophorectomy for obstruction secondary to descending colon mass with colostomy due to having Small and large todd obstruction. CT with sigmoid mass. dr. Erickson. is the surgeon. Gi and uro appreciated on Liquid diet now. # Mild leukocytosis : improved # h/o cervical cancer. DVT PX. heparin SQ. Visit type - Emergency Visit Emergency Visit: Yes ED Registration Date: 01/22/18 Care time: The patient presented to the Emergency Department on the above date and was hospitalized for further evaluation of their emergent condition. - New Patient This patient is new to me today: No - Critical Care Critical Care patient: No - Discharge Referral Referred to [facility] Med P.C.: No
[2018-01-26] MEDS ORDERED: oxyCODONE HCL 5 MG TABLET PO PRN (16:33)
[2018-01-27] MEDS: ACETAMINOPHEN 1000 MG/100 ML VIAL (NON FORMULARY) IVPB SCH ×2 (00:43→07:09)
[2018-01-27] MEDS: HEPARIN NA (PORCINE) 5,000 UNITS/ML 1ML VIAL SQ SCH ×3 (06:00→21:19)
[2018-01-27] MEDS: PANTOPRAZOLE SODIUM 40 MG VIAL IVPUSH SCH (09:39)
--- NOTE | 2018-01-27 11:51 | PN ---
Progress Note, Physician - Current Medication List Current Medications: Active Medications Heparin Sodium (Porcine) (Heparin -) 5,000 unit SQ TID [facility] Last Admin: 01/27/18 06:00 Dose: 5,000 unit Oxycodone HCl (Roxicodone -) 10 mg PO Q6H PRN PRN Reason: PAIN LEVEL 7 - 10 Last Admin: 01/26/18 19:43 Dose: 10 mg Pantoprazole Sodium (Protonix Iv) 40 mg IVPUSH DAILY [facility] Last Admin: 01/27/18 09:39 Dose: 40 mg - Objective Vital Signs: Vital Signs Temperature 98.6 F 01/27/18 01:50 Pulse Rate 80 01/27/18 01:50 Respiratory Rate 20 01/27/18 01:50 Blood Pressure 155/72 01/27/18 01:50 O2 Sat by Pulse Oximetry (%) 100 01/26/18 21:00 Labs: CBC, BMP 01/26/18 07:15 01/26/18 07:15 INR, PTT INR 1.05 (0.82-1.09) 01/22/18 08:20 Problem List - Problems (1) Acute appendicitis without mention of peritonitis Code(s): K35.80 - UNSPECIFIED ACUTE APPENDICITIS Qualifiers: Acute appendicitis type: with generalized peritonitis Qualified Code(s): K35.2 - Acute appendicitis with generalized peritonitis; K35.0 - Acute appendicitis with generalized peritonitis (2) 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
[2018-01-27 12:23] LABS: BASO % 0.4 % (0-2.0); EOS % 1.2 % (0-4.5); HEMOGLOBIN 10.4 GM/dL (10.7-15.3); LYMPH % 16.8 % (8-40); MCH 32.5 pg (25.7-33.7); MCHC 34.6 g/dl (32.0-36.0); MEAN CELL VOLUME 93.9 fl (80-96); MEAN PLT VOLUME 8.1 fl (7.5-11.1); MONO % 9.9 % (3.8-10.2); NEUT % 71.7 % (42.8-82.8); PLATELET COUNT 263 K/MM3 (134-434); RBC 3.19 M/mm3 (3.60-5.2); RDW 13.3 % (11.6-15.6); WHITE BLOOD COUNT 4.3 K/mm3 (4.0-10.0)
--- NOTE | 2018-01-27 12:29 | PN ---
Progress Note, Physician Chief Complaint: upper abd pain, n/v History of Present Illness: s/p partial left colectomy with en bloc L oophorectomy, colostomy for obstruction secondary to descending colon mass Pt seen and examined in bed. Ambulating well, able to inhale up to 2000cc on IS. Tolerating clears, but did vomit clears yesterday after dose of Dilaudid on [place]. No vomiting since. Colostomy with 1325ml recorded for yesterday. Pain well controlled with IV Tylenol and one dose Oxycodone. - Current Medication List Current Medications: Active Medications Heparin Sodium (Porcine) (Heparin -) 5,000 unit SQ TID [facility] Last Admin: 01/27/18 06:00 Dose: 5,000 unit Oxycodone HCl (Roxicodone -) 10 mg PO Q6H PRN PRN Reason: PAIN LEVEL 7 - 10 Last Admin: 01/26/18 19:43 Dose: 10 mg Pantoprazole Sodium (Protonix Iv) 40 mg IVPUSH DAILY [facility] Last Admin: 01/27/18 09:39 Dose: 40 mg - Objective Vital Signs: Vital Signs Temperature 98.6 F 01/27/18 01:50 Pulse Rate 80 01/27/18 01:50 Respiratory Rate 20 01/27/18 01:50 Blood Pressure 155/72 01/27/18 01:50 O2 Sat by Pulse Oximetry (%) 100 01/26/18 21:00 Vital Signs Period Temp Pulse Resp BP Sys/Luna Pulse Ox Last 24 Hr 97.4 F-99 F 76-85 18-20 131-155/72-86 100 Constitutional: Yes: No Distress, Obese Eyes: Yes: Conjunctiva Clear, EOM Intact HENT: Yes: Atraumatic, Normocephalic Gastrointestinal: Yes: Normal Bowel Sounds, Soft, Tenderness (incisional midline ), Other (colostomy mucosa pink patent liquid brown stool). No: Distention ...Rectal Exam: Yes: Deferred Extremities: No: Cool, Cyanosis Edema: No Integumentary: Yes: Incision (midline with omar intact). No: Jaundice, Rash Wound/Incision: Yes: Clean/Dry, Well Approximated, [place] Intact, Open to air. No: Reddened Neurological: Yes: Alert, Oriented Labs: Pending Problem List - Problems (1) Large bowel obstruction Assessment/Plan: POD4 s/p partial left colectomy en bloc with left oophorectomy for obstruction secondary to descending colon mass, colostomy doing well one episode vomiting yesterday but tolerating clears since. repeating labs replete lytes as needed Will d/C IV tylenol Will change to all PO meds fo rpain control OOB to chair and ambulate regularly continue using IS and coughing with expectoration, advised to splint abdomen for coughing colostomy functioning well pt will need VNS arranged for new ostomy care on discharge home family available for teaching to assist with care pt has 57mm ostomy appliance and bag pathology pending Code(s): K56.609 - UNSP INTESTNL OBST, UNSP TO PARTIAL VERSUS COMPLETE OBST (2) Small bowel obstruction Code(s): K56.609 - UNSP INTESTNL OBST, UNSP TO PARTIAL VERSUS COMPLETE OBST (3) 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
[2018-01-27 12:41] LABS: ANION GAP 9 (8-16); BLOOD UREA NITROGEN 11 mg/dL (7-18); CALCIUM 8.1 mg/dL (8.5-10.1); CHLORIDE 104 mmol/L (98-107); CO2 27 mmol/L (21-32); CREATININE 0.5 mg/dL (0.55-1.02); GLUCOSE,RANDOM 114 mg/dL (74-106); MAGNESIUM 1.8 mg/dL (1.8-2.4); POTASSIUM 3.5 mmol/L (3.5-5.1); SODIUM 140 mmol/L (136-145)
[2018-01-27] MEDS ORDERED: oxyCODONE HCL 5 MG TABLET PO PRN (12:44)
[2018-01-27] MEDS: ACETAMINOPHEN 325 MG TABLET (FP) PO SCH ×2 (14:53→17:37)
--- NOTE | 2018-01-27 16:37 | PN ---
Progress Note (short form) - Note Progress Note: Patient is feeling better, started diet today , denies having any pain. Vital Signs Temperature 99 F 01/27/18 14:29 Pulse Rate 81 01/27/18 14:29 Respiratory Rate 20 01/27/18 14:29 Blood Pressure 117/66 01/27/18 14:29 O2 Sat by Pulse Oximetry (%) 100 01/26/18 21:00 GENERAL: The patient is awake, alert, and fully oriented, in no acute distress. HEAD: Normal with no signs of trauma. EYES: PERRL, extraocular movements intact, sclera anicteric, conjunctiva clear. ENT: Ears normal, oropharynx clear without exudates, moist mucous membranes. NECK: Trachea midline, supple. LUNGS: Breath sounds equal, clear to auscultation bilaterally, no wheezes, no crackles, no accessory muscle use. HEART: Regular rate and rhythm, S1, S2 without murmur, rub or gallop. ABDOMEN: hypoactive bowel sounds, +colostomy with brown stool, EXTREMITIES: 2+ dorsalis pedis pulses, warm, well-perfused, no edema. NEUROLOGICAL: Cranial nerves II through XII grossly intact. Normal speech PSYCH: Normal mood, normal affect. SKIN: Warm, dry, normal turgor CBCD WBC 4.3 K/mm3 (4.0-10.0) 01/27/18 12:01 RBC 3.19 M/mm3 (3.60-5.2) L 01/27/18 12:01 Hgb 10.4 GM/dL (10.7-15.3) L 01/27/18 12:01 Hct 30.0 % (32.4-45.2) L 01/27/18 12:01 MCV 93.9 fl (80-96) 01/27/18 12:01 MCHC 34.6 g/dl (32.0-36.0) 01/27/18 12:01 RDW 13.3 % (11.6-15.6) 01/27/18 12:01 Plt Count 263 K/MM3 (134-434) D 01/27/18 12:01 MPV 8.1 fl (7.5-11.1) 01/27/18 12:01 CMP Sodium 140 mmol/L (136-145) 01/27/18 12:01 Potassium 3.5 mmol/L (3.5-5.1) 01/27/18 12:01 Chloride 104 mmol/L (98-107) 01/27/18 12:01 Carbon Dioxide 27 mmol/L (21-32) 01/27/18 12:01 Anion Gap 9 (8-16) 01/27/18 12:01 BUN 11 mg/dL (7-18) 01/27/18 12:01 Creatinine 0.5 mg/dL (0.55-1.02) L 01/27/18 12:01 Creat Clearance w eGFR > 60 (>60) 01/22/18 08:20 Random Glucose 114 mg/dL (74-106) H 01/27/18 12:01 Calcium 8.1 mg/dL (8.5-10.1) L 01/27/18 12:01 Total Bilirubin 0.5 mg/dL (0.2-1.0) 01/22/18 08:20 AST 14 U/L (15-37) L 01/22/18 08:20 ALT 14 U/L (12-78) 01/22/18 08:20 Alkaline Phosphatase 60 U/L (45-117) 01/22/18 08:20 Total Protein 7.1 g/dl (6.4-8.2) 01/22/18 08:20 Albumin 3.5 g/dl (3.4-5.0) 01/22/18 08:20 Current Medications Generic Name Dose Route Start Last Admin Trade Name Freq PRN Reason Stop Dose Admin Acetaminophen 650 mg 01/27/18 13:00 01/27/18 14:53 Tylenol - PO 650 mg Q6HPO [facility] Administration Heparin Sodium (Porcine) 5,000 unit 01/23/18 22:00 01/27/18 14:54 Heparin - SQ 5,000 unit TID [facility] Administration Ibuprofen 600 mg 01/27/18 18:00 Motrin - PO Q6HPO [facility] Oxycodone HCl 5 mg 01/27/18 12:44 Roxicodone - PO Q6H PRN PAIN LEVEL 7 - 10 Pantoprazole Sodium 40 mg 01/28/18 10:00 Protonix - PO DAILY [facility] Home Medications Medication Instructions Recorded NK [No Known Home Medication] 01/22/18 PE: Abdomen: positive for abdominal gauze at surgical site, hypoactive bowel sounds ASSESSMENT AND PLAN: Patient is a 37 y/o female with h/o cervical cancer s/p Hysterectomy and chemo/ Rtx who presented with abd pain and N/V and was found to have small and large bowel obstruction # POD4 s/p partial left colectomy( portion of descending colon en bloc) with left oophorectomy for obstruction secondary to descending colon mass with colostomy due to having Small and large todd obstruction. CT with sigmoid mass. dr. Erickson. is the surgeon. Gi and uro appreciated . On full diet now #Acute hypokalemia improved, replete as needed. # h/o cervical cancer. DVT PX. heparin SQ. possible discharge in am . waiting for pathology result. Visit type - Emergency Visit Emergency Visit: Yes ED Registration Date: 01/22/18 Care time: The patient presented to the Emergency Department on the above date and was hospitalized for further evaluation of their emergent condition. - New Patient This patient is new to me today: No - Critical Care Critical Care patient: No - Discharge Referral Referred to [facility] No
[2018-01-27] MEDS: IBUPROFEN 600 MG TABLET (FP) PO SCH (17:37)
[2018-01-28] MEDS: IBUPROFEN 600 MG TABLET (FP) PO SCH ×4 (06:35→18:01)
[2018-01-28] MEDS: ACETAMINOPHEN 325 MG TABLET (FP) PO SCH ×2 (06:36)
[2018-01-28] MEDS: HEPARIN NA (PORCINE) 5,000 UNITS/ML 1ML VIAL SQ SCH ×2 (06:36→15:56)
[2018-01-28] MEDS ORDERED: PANTOPRAZOLE 40 MG TABLET (FP) PO SCH (10:00)
[2018-01-28 10:33] LABS: BASO % 0.5 % (0-2.0); EOS % 0.8 % (0-4.5); HEMATOCRIT 28.6 % (32.4-45.2); HEMOGLOBIN 9.9 GM/dL (10.7-15.3); LYMPH % 12.7 % (8-40); MCH 32.3 pg (25.7-33.7); MCHC 34.6 g/dl (32.0-36.0); MEAN CELL VOLUME 93.5 fl (80-96); MONO % 8.9 % (3.8-10.2); NEUT % 77.1 % (42.8-82.8); PLATELET COUNT 273 K/MM3 (134-434); RBC 3.06 M/mm3 (3.60-5.2); RDW 13.2 % (11.6-15.6); WHITE BLOOD COUNT 4.5 K/mm3 (4.0-10.0)
[2018-01-28 11:06] LABS: ANION GAP 4 (8-16); BLOOD UREA NITROGEN 11 mg/dL (7-18); CHLORIDE 106 mmol/L (98-107); CO2 28 mmol/L (21-32); CREATININE 0.6 mg/dL (0.55-1.02); GLUCOSE,RANDOM 137 mg/dL (74-106); POTASSIUM 3.2 mmol/L (3.5-5.1); SODIUM 138 mmol/L (136-145)
[2018-01-28] MEDS ORDERED: POTASSIUM CHLORIDE ORAL LIQUID 20 MEQ/15 ML PO ONE ×3 (12:29→16:00)
--- NOTE | 2018-01-28 12:53 | PN ---
Progress Note, Physician Chief Complaint: upper abd pain, n/v History of Present Illness: s/p partial left colectomy with en bloc L oophorectomy, colostomy for obstruction secondary to descending colon mass Pt seen and examined in room. Ambulating with RW (because I get tired). Colostomy bag leaked in bathroom, has been cleaned up and is going to shower. Using IS well. Tolerating diet, but stomach was irritated with ibuprofen. Colostomy with no volume output recorded but "lots of liquid stool" noted and copious amount this am liquid and loose brown stool. Pain managed with tylenol and ibuprofen. Voiding well. - Current Medication List Current Medications: Active Medications Acetaminophen (Tylenol -) 650 mg PO Q6H [facility] Heparin Sodium (Porcine) (Heparin -) 5,000 unit SQ TID [facility] Last Admin: 01/28/18 06:36 Dose: 5,000 unit Ibuprofen (Motrin -) 600 mg PO Q6HPO [facility] Last Admin: 01/28/18 06:35 Dose: Not Given Oxycodone HCl (Roxicodone -) 5 mg PO Q6H PRN PRN Reason: PAIN LEVEL 7 - 10 Pantoprazole Sodium (Protonix -) 40 mg PO DAILY [facility] Last Admin: 01/28/18 10:51 Dose: 40 mg - Objective Vital Signs: Vital Signs Temperature 98.2 F 01/28/18 06:43 Pulse Rate 91 H 01/28/18 10:00 Respiratory Rate 18 01/28/18 10:00 Blood Pressure 150/66 01/28/18 10:00 O2 Sat by Pulse Oximetry (%) 100 01/26/18 21:00 Constitutional: Yes: Well Nourished, No Distress, Calm Eyes: Yes: Conjunctiva Clear, EOM Intact HENT: Yes: Atraumatic, Normocephalic Cardiovascular: Yes: Regular Rate and Rhythm. No: Murmur Respiratory: Yes: Regular, CTA Bilaterally Gastrointestinal: Yes: Soft, Abdomen, Obese, Tenderness (incisional, mild/ appropriate). No: Distention Extremities: No: Cool, Cyanosis Integumentary: Yes: Incision (midline w/omar). No: Jaundice, Rash Wound/Incision: Yes: Clean/Dry, Well Approximated, Omar Intact, Open to air. No: Draining, Reddened Neurological: Yes: Alert, Oriented, Other. No: Unsteady Gait (using rolling walker for ambulation for support - encouraged to walk without it or will get PT to see) Labs: CBC, BMP 01/28/18 10:15 01/28/18 10:15 K low Problem List - Problems (1) Large bowel obstruction Assessment/Plan: POD5 s/p partial left colectomy en bloc with left oophorectomy for obstruction secondary to descending colon mass, colostomy doing well tolerating diet voiding, ambulating needs to walk without walker - or will need PT to see her prior to discharge pain control with nonnarcotics - pt has not taken anything since ibuprofen upset her stomach encouraged to use tylenol, and should be ok for d/c home without narcotics continue using IS and coughing with expectoration, advised to splint abdomen for coughing colostomy functioning well pt learning ostomy care VNS arranged for new ostomy care on discharge home family available for teaching to assist with care pt has 57mm ostomy appliance and bag pathology reviewed with pathologist - 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 path report from [facility] obtained and passed on to pathology they will get slides from her intial operation as well will consult oncology discussed briefly with Dr. Vee Bell (ONC) Code(s): K56.609 - UNSP INTESTNL OBST, UNSP TO PARTIAL VERSUS COMPLETE OBST (2) Small bowel obstruction Code(s): K56.609 - UNSP INTESTNL OBST, UNSP TO PARTIAL VERSUS COMPLETE OBST (3) History of cervical cancer Assessment/Plan: T1b1 N0 (7LN examined) 04/07/15, s/p LAVH and chemo/RT 2014, done 08/01 path report from [facility] on chart, pathology will get slides Code(s): Z85.41 - PERSONAL HISTORY OF MALIGNANT NEOPLASM OF CERVIX UTERI (4) History of laparoscopic-assisted vaginal hysterectomy Code(s): Z90.710 - ACQUIRED ABSENCE OF BOTH CERVIX AND UTERUS (5) Metastatic squamous 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
--- NOTE | 2018-01-28 13:27 | PN ---
Physical Exam: SUBJECTIVE: Patient seen and examined at bedside. Overnight, pt using incentive spirometer, colostomy fnc well, passing flatus. No acute events. Today, pt seen while OOB, using walker for support. Tolerating diet. States she is feeling better, colostomy continuing to fnc. Denies N/V, SOB, or changes in urinary function. OBJECTIVE: Vital Signs Period Temp Pulse Resp BP Sys/Luna Pulse Ox Last 24 Hr 98.2 F-99.8 F 76-91 18-20 117-150/66-75 GENERAL: The patient is awake, alert, and fully oriented, in no acute distress. Ambulating HEAD: Normal with no signs of trauma. EYES: PERRL, extraocular movements intact, sclera anicteric, conjunctiva clear. ENT: Ears normal, nares patent, oropharynx clear without exudates, moist mucous membranes. NECK: Trachea midline, supple. LUNGS: Breath sounds equal, clear to auscultation bilaterally, no wheezes, no crackles, no accessory muscle use. +decreased inspiratory effort HEART: Regular rate and rhythm, S1, S2 without murmur, rub or gallop. ABDOMEN: Soft, diffusely TTP epigastrium, nondistended, normoactive bowel sounds , +colostomy intact with brown stool. +surgical site - omar intact, no erythema or edema EXTREMITIES: 2+ dorsalis pedis pulses, warm, well-perfused, no edema. NEUROLOGICAL: Cranial nerves II through XII grossly intact. Normal speech, antalgic gait PSYCH: Normal mood, normal affect. SKIN: Warm, dry, normal turgor, no rashes or lesions noted Laboratory Results - last 24 hr 01/28/18 01/28/18 10:15 10:15 WBC 4.5 RBC 3.06 L Hgb 9.9 L Hct 28.6 L MCV 93.5 MCH 32.3 MCHC 34.6 RDW 13.2 Plt Count 273 MPV 8.0 Neutrophils % 77.1 Lymphocytes % 12.7 D Monocytes % 8.9 Eosinophils % 0.8 Basophils % 0.5 Sodium 138 Potassium 3.2 L Chloride 106 Carbon Dioxide 28 Anion Gap 4 L BUN 11 Creatinine 0.6 Random Glucose 137 H Calcium 8.0 L Active Medications Generic Name Dose Route Start Last Admin Trade Name Freq PRN Reason Stop Dose Admin Acetaminophen 650 mg 01/28/18 15:00 Tylenol - PO Q6H [facility] Heparin Sodium (Porcine) 5,000 unit 01/23/18 22:00 01/28/18 06:36 Heparin - SQ 5,000 unit TID [facility] Administration Ibuprofen 600 mg 01/27/18 18:00 01/28/18 06:35 Motrin - PO Not Given Q6HPO [facility] Oxycodone HCl 5 mg 01/27/18 12:44 Roxicodone - PO Q6H PRN PAIN LEVEL 7 - 10 Pantoprazole Sodium 40 mg 01/28/18 10:00 01/28/18 10:51 Protonix - PO 40 mg DAILY [facility] Administration ASSESSMENT/PLAN: This is a 37 yr old F with hx diverticulitis (Sep 2017) with diffuse abdominal pain, nausea,and vomiting admitted for small bowel obstruction. #SBO; s/p partial L colectomy, en bloc L oophorectomy, colostomy left ureteral stent placement - PO Day 5 -pt with high grade L colon obstruction, related to distal descending colon mass. Likely colon CA. 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 awaiting official report -no AXR needed as per surgery -Continue IV NS 20 cc/hr - keep IV open -PO pain control; Tylenol 650 mg PO q4h PRN, Motrin 600mg PO q6h PRN, oxycodone 5mg PO q6h PRN as per surgery -protonix 40 mg IVP qd -encourage incentive spirometer use -voiding freely -QTc WNL - can give zofran for nausea -has been OOB; to be seen by PT. Order is in #Hx cervical CA (etiology HPV), distal descending mass -F/u CA 125, 19-9, CEA - WNL #mild leukocytosis - resolved -likely reactive, has since resolved #hypokalemia -K+ 3.2 -repleted with 40mEq KCl PO -continue to follow level #F/E/N Currently not on IVF continue to follow lytes regular diet #PPX hep 5000 sq TID SCD's #Dispo post-op care will need VNS for new ostomy care upon dc Visit type - Emergency Visit Emergency Visit: No - New Patient This patient is new to me today: No - Critical Care Critical Care patient: No
[2018-01-28] MEDS ORDERED: ACETAMINOPHEN 325 MG TABLET (FP) PO SCH (15:00)
--- NOTE | 2018-01-28 16:54 | PN ---
Teaching Attending Note Name of Resident: Shital Connelly ATTENDING PHYSICIAN STATEMENT I saw and evaluated the patient. I reviewed the resident's note and discussed the case with the resident. I agree with the resident's findings and plan as documented. SUBJECTIVE: Patient is comfortable with no acute distress, had a BM, tolerating diet as well. OBJECTIVE: Vital Signs Temperature 98.5 F 01/28/18 15:04 Pulse Rate 96 H 01/28/18 15:04 Respiratory Rate 18 01/28/18 15:04 Blood Pressure 125/76 01/28/18 15:04 O2 Sat by Pulse Oximetry (%) 100 01/26/18 21:00 CBCD WBC 4.5 K/mm3 (4.0-10.0) 01/28/18 10:15 RBC 3.06 M/mm3 (3.60-5.2) L 01/28/18 10:15 Hgb 9.9 GM/dL (10.7-15.3) L 01/28/18 10:15 Hct 28.6 % (32.4-45.2) L 01/28/18 10:15 MCV 93.5 fl (80-96) 01/28/18 10:15 MCHC 34.6 g/dl (32.0-36.0) 01/28/18 10:15 RDW 13.2 % (11.6-15.6) 01/28/18 10:15 Plt Count 273 K/MM3 (134-434) 01/28/18 10:15 MPV 8.0 fl (7.5-11.1) 01/28/18 10:15 CMP Sodium 138 mmol/L (136-145) 01/28/18 10:15 Potassium 3.2 mmol/L (3.5-5.1) L 01/28/18 10:15 Chloride 106 mmol/L (98-107) 01/28/18 10:15 Carbon Dioxide 28 mmol/L (21-32) 01/28/18 10:15 Anion Gap 4 (8-16) L 01/28/18 10:15 BUN 11 mg/dL (7-18) 01/28/18 10:15 Creatinine 0.6 mg/dL (0.55-1.02) 01/28/18 10:15 Creat Clearance w eGFR > 60 (>60) 01/22/18 08:20 Random Glucose 137 mg/dL (74-106) H 01/28/18 10:15 Calcium 8.0 mg/dL (8.5-10.1) L 01/28/18 10:15 Total Bilirubin 0.5 mg/dL (0.2-1.0) 01/22/18 08:20 AST 14 U/L (15-37) L 01/22/18 08:20 ALT 14 U/L (12-78) 01/22/18 08:20 Alkaline Phosphatase 60 U/L (45-117) 01/22/18 08:20 Total Protein 7.1 g/dl (6.4-8.2) 01/22/18 08:20 Albumin 3.5 g/dl (3.4-5.0) 01/22/18 08:20 Current Medications Generic Name Dose Route Start Last Admin Trade Name Freq PRN Reason Stop Dose Admin Acetaminophen 650 mg 01/28/18 15:00 01/28/18 14:13 Tylenol - PO Not Given Q6H [facility] Heparin Sodium (Porcine) 5,000 unit 01/23/18 22:00 01/28/18 15:56 Heparin - SQ Not Given TID [facility] Ibuprofen 600 mg 01/27/18 18:00 01/28/18 14:13 Motrin - PO Not Given Q6HPO [facility] Pantoprazole Sodium 40 mg 01/28/18 10:00 01/28/18 10:51 Protonix - PO 40 mg DAILY [facility] Administration Home Medications Medication Instructions Recorded NK [No Known Home Medication] 01/22/18 PE: Abdomen: positive for omar, comfortable with no acute distress. colostomy functioning well rest of PE per resident's note ASSESSMENT AND PLAN: Patient is a 37 y/o female with h/o cervical cancer s/p Hysterectomy and chemo/ Rtx who presented with abd pain and N/V and was found to have small and large bowel obstruction # POD5 s/p partial left colectomy( portion of descending colon en bloc) with left oophorectomy for obstruction secondary to descending colon mass with colostomy due to having Small and large todd obstruction. CT with sigmoid mass. dr. Erickson. is the surgeon. Gi and uro appreciated . 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 VNS is being arranged for new ostomy care by social service. #Acute hypokalemia improved, repleted by 'z # h/o cervical cancer. discharge patient home.
[2018-01-28 17:00] VITALS: BP 114/64; PULSE 86; TEMP 97.9
--- NOTE | 2018-01-28 17:27 | DS ---
Physical Exam: SUBJECTIVE: Patient seen and examined at bedside. Overnight, pt using incentive spirometer, colostomy fnc well, passing flatus. No acute events. Today, pt seen while OOB, using walker for support. Tolerating diet. States she is feeling better, colostomy continuing to fnc. Denies N/V, SOB, or changes in urinary function. OBJECTIVE: Vital Signs Period Temp Pulse Resp BP Sys/Luna Pulse Ox Last 24 Hr 97.9 F-98.7 F 78-96 18-20 114-150/64-76 PHYSICAL EXAM GENERAL: The patient is awake, alert, and fully oriented, in no acute distress. Ambulating HEAD: Normal with no signs of trauma. EYES: PERRL, extraocular movements intact, sclera anicteric, conjunctiva clear. ENT: Ears normal, nares patent, oropharynx clear without exudates, moist mucous membranes. NECK: Trachea midline, supple. LUNGS: Breath sounds equal, clear to auscultation bilaterally, no wheezes, no crackles, no accessory muscle use. +decreased inspiratory effort HEART: Regular rate and rhythm, S1, S2 without murmur, rub or gallop. ABDOMEN: Soft, diffusely TTP epigastrium, nondistended, normoactive bowel sounds , +colostomy intact with brown stool. +surgical site - omar intact, no erythema or edema EXTREMITIES: 2+ dorsalis pedis pulses, warm, well-perfused, no edema. NEUROLOGICAL: Cranial nerves II through XII grossly intact. Normal speech, antalgic gait PSYCH: Normal mood, normal affect. SKIN: Warm, dry, normal turgor, no rashes or lesions noted LABS Laboratory Results - last 24 hr 01/28/18 01/28/18 10:15 10:15 WBC 4.5 RBC 3.06 L Hgb 9.9 L Hct 28.6 L MCV 93.5 MCH 32.3 MCHC 34.6 RDW 13.2 Plt Count 273 MPV 8.0 Neutrophils % 77.1 Lymphocytes % 12.7 D Monocytes % 8.9 Eosinophils % 0.8 Basophils % 0.5 Sodium 138 Potassium 3.2 L Chloride 106 Carbon Dioxide 28 Anion Gap 4 L BUN 11 Creatinine 0.6 Random Glucose 137 H Calcium 8.0 L Imaging -01/21/18 RUQ Sono: limited visualization of liver, GB distended without stones or thickening, trace fluid in villeda's pouch -01/22/[address]: high grade L colon obstruction related to distal descending colon mass, small amount ascites -01/22/18 Abd XR: NGT confirmed, no pneumoperitoneum, dilated loops - small bowel over R iliac -01/22/18 Abd XR: with same findings as above, SBO confirmed HOSPITAL COURSE: Date of Admission:01/22/18 Date of Discharge: 01/28/18 Admit diagnosis: SBO 37 y/o F with h/o cervical CA 3 yrs ago s/p LAVH (robotic hysterectomy with LN dissections and ovarian transposition- March 2015) and chemo/RT, kept ovaries, which were pexied up out of pelvis bilaterally, has followed with .NET ARCHITECT and remains on letrozole; who presented to ED with upper abdominal pain and N/V for one day. A week prior, she was seen in ED also for pain but did not have vomiting at the time. CT was done showing no acute pathology. During [facility] admission, CT showed SB/LB obstruction secondary to descending colon mass, which was also present on 01/15/18 scan without obstruction. While managed on the floor, pt had NGT placed for decompression, and underwent surgery on 01/23/[address] Erickson - partial left colectomy en bloc with left oophorectomy, colostomy , mobilization of splenic flexure. Pt's pain was initially controlled with COMPUTER PROGRAMMING SUPERVISOR pump and then changed to PO Tylenol, Oxycodone, and after surgery, pt colostomy functioning with brown stool present. Pt ambulating well, tolerating diet without N/V. 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 Cut surgical margins negative; lymph nodes negative (at least 15), no tumor identified on colon serosa, appears to be invading from colon wall toward mucosa. Official report pending. VNS has been arranged for new ostomy care on discharge home. Pt will follow up with Dr. Tinajero (doctor of naprapathy onc), Dr. Bell ( heme onc), and surgeon, Dr. Erickson within the week. Minutes to complete discharge: 39 <Shital Connelly - Last Filed: 01/28/18 17:50> Physical Exam: SUBJECTIVE: Patient seen and examined OBJECTIVE: Vital Signs Period Temp Pulse Resp BP Sys/Luna Pulse Ox Last 24 Hr 97.9 F-98.7 F 78-96 18-20 114-150/64-76 PHYSICAL EXAM GENERAL: The patient is awake, alert, and fully oriented, in no acute distress. HEAD: Normal with no signs of trauma. EYES: PERRL, extraocular movements intact, sclera anicteric, conjunctiva clear. ENT: Ears normal, nares patent, oropharynx clear without exudates, moist mucous membranes. NECK: Trachea midline, full range of motion, supple. LUNGS: Breath sounds equal, clear to auscultation bilaterally, no wheezes, no crackles, no accessory muscle use. HEART: Regular rate and rhythm, S1, S2 without murmur, rub or gallop. ABDOMEN: Soft, nontender, nondistended, normoactive bowel sounds, no guarding, no rebound, no hepatosplenomegaly, no masses. EXTREMITIES: 2+ pulses, warm, well-perfused, no edema. NEUROLOGICAL: Cranial nerves II through XII grossly intact. Normal speech, gait not observed. PSYCH: Normal mood, normal affect. SKIN: Warm, dry, normal turgor, no rashes or lesions noted. LABS Laboratory Results - last 24 hr 01/28/18 01/28/18 10:15 10:15 WBC 4.5 RBC 3.06 L Hgb 9.9 L Hct 28.6 L MCV 93.5 MCH 32.3 MCHC 34.6 RDW 13.2 Plt Count 273 MPV 8.0 Neutrophils % 77.1 Lymphocytes % 12.7 D Monocytes % 8.9 Eosinophils % 0.8 Basophils % 0.5 Sodium 138 Potassium 3.2 L Chloride 106 Carbon Dioxide 28 Anion Gap 4 L BUN 11 Creatinine 0.6 Random Glucose 137 H Calcium 8.0 L HOSPITAL COURSE: Date of Admission:01/22/18 Date of Discharge: 01/28/18 <Chandler Solorzano - Last Filed: 01/28/18 18:49> Discharge Summary Reason For Visit: INTESTINAL OBSTRUCTION/VOMITING Current Active Problems Acute appendicitis without mention of peritonitis (Acute) Bowel obstruction (Acute) Generalized abdominal pain (Acute) History of cervical cancer (Acute) History of laparoscopic-assisted vaginal hysterectomy (Acute) Large bowel obstruction (Acute) Metastasis from cervical cancer (Acute) Metastatic squamous cell carcinoma to intra-abdominal site (Acute) 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 Ady Erickson of [facility]. Activity: Resume your usual activities gradually, but no heavy exertion or lifting more than 10-15 pounds for 4-6 weeks. You may shower (no bath) daily, just pat the incision area dry. Switzer should not need to be recovered with any dressings, unless you have been told otherwise. Eat lightly at first, but advance to your usual diet as tolerated. Pain: For pain, you may use and alternate Tylenol (acetaminophen) and/or ibuprofen every 6 hours each as needed; this means that you can take one OR the other at 3-hour intervals. If you are prescribed a Tylenol/narcotic combination for severe pain, use it instead of plain Tylenol as needed and switch back when your pain starts decreasing. Do not take more than 4000mg of acetaminophen in a day. Take medications as prescribed or indicated on the labeling. Follow-up: Call Dr. Erickson's office at [phone] to make your postop appointment (Sunday 2 weeks after surgery as advised). Clinic is held in the Diagnostic Center on the first floor of [facility]. Call the office if you have: * increasing pain not responsive to pain medication * fever of 101F or higher * vomiting * unusual or increasing bleeding or drainage from wounds * increasing redness or swelling at wound sites Also, see your primary medical doctor within 1-2 weeks. Instructions of Please follow up with an oncologist, Dr. Bell in a week. We would also like you to follow up with a gynecology oncologist, Dr. Tinajero in a week. Visiting nurses will see you starting tomorrow to help with ostomy care and supplies. In case of emergency, if you develop severe shortness of breath or chest pain, please go to the hospital. We hope you feel better soon. Referrals: Ady Erickson MD [Staff Physician] - 02/06/18 (call for appt) Yvette Tinajero MD [Staff Physician] - 1 Week Tereza Bell MD [Staff Physician] - 02/05/18 12:30 pm Disposition: HOME This patient is new to me today: No Emergency Visit: No Critical Care patient: No - Discharge Referral Referred to [facility] No <Shital Connelly - Last Filed: 01/28/18 17:50>
--- NOTE | 2018-01-28 20:41 | CONSULT ---
Consult - text type - Consultation Consultation Note: The patient is a 36 year old female with a significant PMH of cervical CA s/p total hysterectomy (03/2015), anemia, and bilateral pyelonephritis who presents with lower back pain and diarrhea. Patient was diagnosed with intestinal obstruction secondary to descending colon mass s/p partial left colectomy en bloc with left oophorectomy, colostomy, mobilization of splenic flexure on 01/23/18 Noted to have descending colon with hard mass stuck to left ovary, which was pexied to left sidewall no palpable lymph nodes, no other bowel lesions were appreciated currently patient is ready to be discharged home Recovering post op. ambulating Tolerating diet PAST MEDICAL HISTORY: Cervical cancer, Anemia, Bilateral pyelonephritis. PAST SURGICAL HISTORY: Hysterectomy (03/2015). FAMILY HISTORY: No pertinent history reported. SOCIAL HISTORY: Pt lives with family and is employed. MEDICATIONS: Reviewed. ALLERGIES: NKA - Psycho/Social/Smoking Cessation Hx Smoking History: Never smoked Allergies/Adverse Reactions: Allergies Allergy/AdvReac Type Severity Reaction Status Date / Time No Known Allergies Allergy Verified 06/03/17 05:35 Home Medications: Ambulatory Orders NK [No Known Home Medication] 03/19/17 Last Vital Signs Temp Pulse Resp BP Pulse Ox 97.9 F 86 20 114/64 100 01/28/18 16:15 01/28/18 16:15 01/28/18 16:15 01/28/18 16:15 01/26/18 21:00 Cor: RSR, No murmurs, No gallops Lungs: Clear to P&A Abd: Soft, Normal bowel sounds, colostomy+ Ext:No significant edema labs/Meds reviewed A/P The patient is a 36 year old female with a significant PMH of cervical CA s/p total hysterectomy (03/2015), anemia, and bilateral pyelonephritis who presented with lower back pain and diarrhea. Patient with h/o stage II squamous cell caincer in 2014. Had abnormal pap smear in 2008 and was lost to follow up. she is s/p robot assisted hysterectomy, node dissection, 03/2015 T2, N1?? squamous cell ca with neg. microscopic margins s/p cisplatin/RT in 05/2015 Patient was diagnosed with intestinal obstruction secondary to descending colon mass s/p partial left colectomy en bloc with left oophorectomy, colostomy, mobilization of splenic flexure on 01/23/18 Noted to have descending colon with hard mass stuck to left ovary, which was pexied to left sidewall no palpable lymph nodes, no other bowel lesions were appreciated Pathology was c/w squamous cell carcinoma with negative nodes and clear margins will discuss in tumor conference on 02/08 with rad-on further recommendations
--- NOTE | 2018-01-29 14:42 | PATH ---
Surgical Pathology Report Patient Name: FLORIN LYNN Med. Rec. #: [id number] /Age/Gender: 1980 (Age: 37) / F Account: [id number] Location: [facility] MED/SURG Taken: 01/23/2018 Received: 01/24/2018 Reported: 01/29/2018 Physicians: Ady Erickson M.D. Specimen(s) Received A: PORTION OF DECENDING COLON ENBLOV WITH LEFT OVARY- SUTURE NUNO PROXIMAL B: ADDITIONAL COLON PROXIMAL COLON MARGIN Clinical History Intestinal obstruction, secondary descending colon mass History of cervical cancer 2015 status post LAVH and chemotherapy/radiation (2014) Ovaries pexied??? out of pelvis Final Diagnosis A. PORTION OF DESCENDING COLON WITH LEFT TUBE AND OVARY, RESECTION: METASTATIC SQUAMOUS CELL CARCINOMA, MODERATELY DIFFERENTIATED, INVOLVING DESCENDING COLON, LEFT OVARY, AND LEFT FALLOPIAN TUBE. THE TUMOR INVADES THE ENTIRE THICKNESS OF THE BOWEL WALL AND IS PRESENT IN THE ADJACENT PERICOLONIC ADIPOSE TISSUE; THE FREE SEROSAL SURFACE IS NOT INVOLVED BY THE TUMOR. THE SEROSAL SURFACE OF THE OVARY AND FALLOPIAN TUBE APPEARS FREE OF TUMOR. THE RESECTION MARGINS, INCLUDING MARGINS OF THE COLON AND PROXIMAL FALLOPIANTUBE MARGIN, ARE FREE OF TUMOR. THIRTEEN (13) LYMPH NODES, NEGATIVE FOR METASTATIC CARCINOMA. B. ADDITIONAL COLON PROXIMAL COLON MARGIN: SEGMENT OF COLON, NEGATIVE FOR METASTATIC CARCINOMA. FIVE (5) LYMPH NODES, NEGATIVE FOR METASTATIC CARCINOMA. Comment: Patient has history of invasive squamous cell carcinoma of the cervix in 2014. Interdepartmental case reviewed with consensus on diagnosis. This case was discussed with Dr. Erickson on January 29, 2018. Electronically Signed Ingrid Matthews M.D. Gross Description A. Received in formalin labeled "portion of descending colon with left ovary," is a 12 cm in length portion of bowel with 2 stapled mucosal margins and moderate attached pericolonic adipose tissue. There is a suture marking the proximal aspect of the specimen, per the surgeon. The proximal bowel appears dilated. The serosa is bella-garcia with fibrous adhesions. There is a 4.5 cm in length fallopian tube as well as a 3.5 x 3.5 x 2.0 cm cystic ovary adherent to the outer surface of the colon. The mucosa displays a 4.0 x 3.7 cm bella, polypoid mass at 2.5 cm from the distal mucosal margin. The mass is 2 cm from the mesenteric margin of resection. The mass extends through the serosa and into the fallopian tube and ovary. The proximal portion of the tube appears free from tumor (3cm in length area).The remaining colonic mucosa is bella with normal folds. Sectioning of the pericolonic adipose tissue reveals multiple lymph nodes ranging from 0.3-1.1 cm in greatest dimension. Bilingual Teacher Aide sections are submitted in cassettes as follows: 1-proximal mucosal margin of resection; 2-distal mucosal margin of resection; 3-shave of mesenteric margin; 4-mass; 5-mass with surrounding normal mucosa; 6-colonic mass with fallopian tube; 7-8-colonic mass with ovary; 9-additional fallopian tube; 81-57-edeozpgfgw ovary; 14-proximal mucosa; 15-distal mucosa; 16-one whole bisected lymph node; 17-20-three whole possible lymph nodes each. 21-22: proximal tube, grossly not involved by tumor. B. Received in formalin labeled "additional proximal colon," is a 10 cm in length portion of colon with 2 stapled mucosal margins and minimal attached pericolonic adipose tissue. The serosa is bella-pink and smooth. The mucosa is bella with normal folds. No mucosal masses are identified. Sectioning of the pericolonic adipose tissue reveals multiple bella, irregular lymph nodes ranging from 0.3-0.6 cm in greatest dimension. Bilingual Teacher Aide sections are submitted in 7 cassettes as follows: 1-2-mucosal margins; 3-patient service representative mucosa; 4-6-one whole bisected lymph node each; 7-two whole possible lymph nodes. 01/24/201801/24/2018
== END 2018-01-28 18:36 | disposition home or self-care (01) | DRG 221 ==
LOC: JER 21:08 → JERBED 01-22 02:13 → J8W 01-22 05:54
PROVIDERS: ADMIT Internal Medicine; ATTEND Internal Medicine
PROC: 0D1M0Z4 Bypass Descending Colon to Cutaneous, Open Approach (ICD-10-PCS; 2018-01-23)
PROC: 0TJB8ZZ Inspection of Bladder, Via Natural or Artificial Opening Endoscopic (ICD-10-PCS; 2018-01-23)
PROC: 0T9B80Z Drainage of Bladder with Drainage Device, Via Natural or Artificial Opening Endoscopic (ICD-10-PCS; 2018-01-23)
PROC: 0DBM0ZX Excision of Descending Colon, Open Approach, Diagnostic (ICD-10-PCS; principal; 2018-01-23 15:00)
PROC: 0UB10ZZ Excision of Left Ovary, Open Approach (ICD-10-PCS; 2018-01-23 15:00)
DX: C18.6 Malignant neoplasm of descending colon (principal); K56.609 Unspecified intestinal obstruction, unspecified as to partial versus complete obstruction; R19.09 Other intra-abdominal and pelvic swelling, mass and lump; D72.829 Elevated white blood cell count, unspecified; E87.6 Hypokalemia; C79.62 Secondary malignant neoplasm of left ovary; R18.8 Other ascites; Z85.41 Personal history of malignant neoplasm of cervix uteri; K59.00 Constipation, unspecified
CPT/HCPCS: 36415; 74018-TC-FY; 74019-TC-FY; 74177-TC; 76705-TC; 80048; 80053; 82378; 83605; 83690; 83735; 84100; 84703; 85025; 85027; 85610; 85730; 86301; 86304; 86850; 86900; 86901; 88307-TC; 93005; 93010; 94760; 99285-25; J0131; J1644; J7030

== ENCOUNTER 2018-02-01 11:18 | Emergency (ER) | payer OTHER ==
[2018-02-01 11:30] VITALS: BMI 34.1
[2018-02-01] MEDS ORDERED: MORPHINE SULFATE 10 MG/1 ML *VIAL ONE (12:40)
--- NOTE | 2018-02-01 12:47 | PDOC ---
Attending Attestation - Resident Resident Name: Chadwick Phillipsson - ED Attending Attestation I have performed the following: I have examined & evaluated the patient, The case was reviewed & discussed with the resident, I agree w/resident's findings & plan, Exceptions are as noted - HPI HPI: 02/01/18 13:25 The patient is a 37 year old female with a significant PMH of recent partial left colectomy (01/23/18) with left oophorectomy CALIXTO surgery, colostomy, cervical CA, and diverticulitis who presents to the emergency department for evaluation of bleeding and purulent drainage to her recent stapled surgical site beginning yesterday. She also notes pain and drainage to her surgical scar. The patient endorses chills but denies fever. She denies nausea or vomiting. Denies CP/SOB. Allergies: NKA PCP: Dr. Ernesto De La Garza - Physicial Exam PE: 02/01/18 13:25 GENERAL: Awake, alert, and fully oriented, in no acute distress HEAD: No signs of trauma EYES: PERRLA, EOMI, sclera anicteric, conjunctiva clear ENT: Auricles normal inspection, hearing grossly normal, nares patent, oropharynx clear without exudates. Moist mucosa NECK: Normal ROM, supple, no lymphadenopathy, JVD, or masses LUNGS: Breath sounds equal, clear to auscultation bilaterally. No wheezes, and no crackles HEART: Regular rate and rhythm, normal S1 and S2, no murmurs, rubs or gallops ABDOMEN: (+) Large midline scar from the epigastric region down to the suprapubic area, stapled. Distal erythema and tenderness over the incision with scant serosanguineous drainage. Proximally clean and intact. Ostomy bag in place. EXTREMITIES: Normal range of motion, no edema. No clubbing or cyanosis. No cords , erythema, or tenderness BACK: No midline spinal tenderness in cervical/thoracic/lumbar region NEUROLOGICAL: Normal speech, cranial nerves intact, negative pronator drift, 5/ 5 strength in all 4 extremities, normal sensation to light touch in all 4 extremities, normal cerebellar exam, normal gait, normal reflexes and tone SKIN: Warm, Dry, normal turgor, no rashes or lesions noted. - Medical Decision Making 02/01/18 13:25 37-year-old female with recent colectomy for malignant mass presents to the emergency Department with drainage and bleeding from her incision. Vitals within normal limits. Exam with serosanguineous drainage and mild surrounding erythema over the distal aspect of the incision. Dr. Martínez requests blood work in the meantime and Dr. Erickson will be down to evaluate the patient soon. 02/01/18 14:[address] Erickson and packed. She recommends Keflex 4 times a day, wound cultures pending. Patient has follow-up appointment with Dr. Erickson next Sunday. Results explained to patient who requests discharge home. I discussed the physical exam findings, ancillary test results and final diagnoses with the patient. I answered all of the patient's questions. The patient was satisfied with the care received and felt comfortable with the discharge plan and treatment plan. The patient will call their primary care physician within 24 hours to arrange follow-up and will return to the Emergency Department with any new, persistent or worsening symptoms. Discharge Disposition - Diagnosis Wound infection after surgery - Discharge Dispostion Disposition: HOME Condition at time of disposition: Stable Last Admission D/C Date: 01/28/18 Decision to Admit order: No - Referrals Referrals: Ernesto De La Garza MD [Primary Care Provider] - - Patient Instructions Printed Discharge Instructions: DI for Wound Infection Additional Instructions: Please return to the emergency department with any new or worsening symptoms or concerns. Please follow up with your primary care physician within 72 hours. Please take the Keflex 500mg 4 times a day. Follow up at your appointment with Dr. Erickson as scheduled in clinic next Sunday. - Post Discharge Activity
[2018-02-01] MEDS ORDERED: morphine CARPU-JECT 4 MG/1 ML DISP.SYRIN IVPUSH ONE (12:48)
[2018-02-01] MEDS ORDERED: ONDANSETRON 4 MG/2 ML VIAL IVPUSH ONE (12:48)
[2018-02-01] MEDS ORDERED: ONDANSETRON 4 MG/2 ML VIAL ONE (12:49)
--- NOTE | 2018-02-01 13:17 | PDOC ---
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 Pain worse with moving, and bearing down. Patient with sharp, worsening, abdominal pain at suture site. Reports discharge from suture site x 1 day, with spontaneous resolution. No other complaints. Colostomy output consistently brown liquid with absent blood visualized. Denies F/C, N/V, CP, SOB, urinary complaints, weakness, lightheadedness, sensory changes PMHx: as noted above ROS: as noted above SHx: Denies Etoh, tobacco, or IVDA. FHx: Cousins 5 yo bone ca. , 15 yo brain ca. Past History - Past Medical History Allergies/Adverse Reactions: Allergies Allergy/AdvReac Type Severity Reaction Status Date / Time No Known Allergies Allergy Verified 02/01/18 11:26 Home Medications: Ambulatory Orders Cephalexin [Keflex] 500 mg PO QID #20 capsule 02/01/18 Oxycodone HCl/Acetaminophen [Percocet 5-325 mg Tablet] 1 tab PO Q8H PRN #9 tablet MDD 3 tabs 02/01/18 Anemia: Yes Asthma: No Cancer: Yes (cervical) Cardiac Disorders: No COPD: No Diabetes: No GI Disorders: Yes (Diverticulitis) HTN: No Seizures: No Thyroid Disease: No - Surgical History Abdominal Surgery: Yes ([facility]) GI Surgery: Yes (COLOSTOMY) - Reproductive History Cervical CA: Yes - Immunization History Immunization Up to Date: Yes - Suicide/Smoking/Psychosocial Hx Smoking History: Never smoked Have you smoked in the past 12 months: No Information on smoking cessation initiated: No Hx Alcohol Use: No Drug/Substance Use Hx: No Substance Use Type: None Hx Substance Use Treatment: No Review of Systems - Review of Systems Comments:: 02/01/18 13:17 GENERAL/CONSTITUTIONAL: No fever or chills. No weakness. HEAD, EYES, EARS, NOSE AND THROAT: No change in vision. No ear pain or discharge. No sore throat. CARDIOVASCULAR: No chest pain or shortness of breath RESPIRATORY: No cough, wheezing, or hemoptysis. GASTROINTESTINAL: + Abdominal pain and nausea. No vomiting, diarrhea or constipation. GENITOURINARY: No dysuria, frequency, or change in urination. MUSCULOSKELETAL: No joint or muscle swelling or pain. No neck or back pain. SKIN: No rash NEUROLOGIC: No headache, vertigo, loss of consciousness, or change in strength/ sensation. ENDOCRINE: No increased thirst. No abnormal weight change HEMATOLOGIC/LYMPHATIC: No anemia, easy bleeding, or history of blood clots. ALLERGIC/IMMUNOLOGIC: No hives or skin allergy. *Physical Exam - Vital Signs Last Vital Signs Temp Pulse Resp BP Pulse Ox 98.2 F 94 H 14 110/52 99 02/01/18 11:27 02/01/18 11:27 02/01/18 11:27 02/01/18 11:27 02/01/18 11:27 - Physical Exam Comments: 02/01/18 13:17 GENERAL: Awake, alert, and fully oriented, in no acute distress HEAD: No signs of trauma, normocephalic, atraumatic EYES: PERRLA, EOMI, sclera anicteric, conjunctiva clear ENT: Auricles normal inspection, hearing grossly normal, nares patent, oropharynx clear without exudates. Moist mucosa NECK: Normal ROM, supple, no lymphadenopathy, JVD, or masses LUNGS: No distress, speaks full sentences, clear to auscultation bilaterally HEART: Regular rate and rhythm, normal S1 and S2, no murmurs, rubs or gallops, peripheral pulses normal and equal bilaterally. ABDOMEN:+ Left sided colostomy in place. Midline vertical incision/surgical scar with multiple omar in place, and ttp. + Area of slightly erythematous, firm induration at inferior margin ( 2 x 2 cm ); slight serosainguenous d/c. Soft, nbs. No guarding, no rebound, no rigidity. No masses. Neg CVA ttp. EXTREMITIES : Normal inspection, Normal range of motion, no edema. No clubbing or cyanosis. SKIN: Warm, Dry, normal turgor, no rashes or lesions noted ED Treatment Course - LABORATORY CBC & Chemistry Diagram: 02/01/18 12:41 02/01/18 12:41 - Medications Given in the ED: ED Medications Discontinued Medications Generic Name Dose Route Start Last Admin Trade Name Freq PRN Reason Stop Dose Admin Morphine Sulfate 4 mg 02/01/18 12:48 02/01/18 12:52 Morphine Injection - IVPUSH 02/01/18 12:49 4 mg ONCE ONE Administration Ondansetron HCl 4 mg 02/01/18 12:48 02/01/18 12:52 Zofran Injection IVPUSH 02/01/18 12:49 4 mg ONCE ONE Administration Medical Decision Making - Medical Decision Making 02/01/18 13:25 7 yo M with h/o diverticulitis, cervical cancer ( 2014) s/p LAVH and HOST ,day 7 post op surgical resection of descending colon and colostomy( 01/23/18) 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 VSS, AF, A&OX3. Physical exam notable for ttp at midline vertical incision /surgical scar with multiple omar in place, and area of erythema, and firm induration at inferior margin ( 2 x 2 cm ); slight serosainguenous d/c. Surgical consult placed. Possible post op hematoma formation vs. abdominal abscess. Will also consider gastroenteritis, colitis, cystitis in setting of recent surgery and hospital stay. ED Course: CBC, CMP, 02/01/18 15:19 02/01/18 15:20 AST/ALT: 71/162 increased from 1 week [address]. [address] Erickson evaluated this patient and reccomends Keflex QID. Patient stable and d/ c with return precautions. *DC/Admit/Observation/Transfer Diagnosis at time of Disposition: Wound infection after surgery - Discharge Dispostion Disposition: HOME Condition at time of disposition: Stable Decision to Admit order: No - Prescriptions Prescriptions: Cephalexin [Keflex] 500 mg PO QID #20 capsule Oxycodone HCl/Acetaminophen [Percocet 5-325 mg Tablet] 1 tab PO Q8H PRN #9 tablet MDD 3 tabs PRN Reason: Pain - Referrals Referrals: Ernesto De La Garza MD [Primary Care Provider] - - Patient Instructions Printed Discharge Instructions: DI for Wound Infection Additional Instructions: Please return to the emergency department with any new or worsening symptoms or concerns. Please follow up with your primary care physician within 72 hours. Please take the Keflex 500mg 4 times a day. Follow up at your appointment with Dr. Erickson as scheduled in clinic next Sunday. - Post Discharge Activity
[2018-02-01 13:20] LABS: BASO % 0.6 % (0-2.0); EOS % 0.5 % (0-4.5); HEMATOCRIT 33.2 % (32.4-45.2); HEMOGLOBIN 11.1 GM/dL (10.7-15.3); LYMPH % 11.3 % (8-40); MCH 31.6 pg (25.7-33.7); MCHC 33.4 g/dl (32.0-36.0); MEAN CELL VOLUME 94.6 fl (80-96); MEAN PLT VOLUME 8.5 fl (7.5-11.1); MONO % 8.1 % (3.8-10.2); NEUT % 79.5 % (42.8-82.8); PLATELET COUNT 356 K/MM3 (134-434); RBC 3.51 M/mm3 (3.60-5.2); WHITE BLOOD COUNT 7.6 K/mm3 (4.0-10.0)
[2018-02-01 13:53] LABS: ANION GAP 5 (8-16); BLOOD UREA NITROGEN 11 mg/dL (7-18); CALCIUM 8.8 mg/dL (8.5-10.1); CHLORIDE 108 mmol/L (98-107); CO2 26 mmol/L (21-32); GLUCOSE,RANDOM 97 mg/dL (74-106); SGPT/ALT 162 U/L (12-78); SODIUM 139 mmol/L (136-145)
[2018-02-01 13:55] LABS: ALK PHOS 88 U/L (45-117); BILIRUBIN,TOTAL 0.4 mg/dL (0.2-1.0); CREATININE 0.7 mg/dL (0.55-1.02); TOT PROT 7.1 g/dl (6.4-8.2)
[2018-02-01 13:58] LABS: POTASSIUM 4.5 mmol/L (3.5-5.1); SGOT/AST 71 U/L (15-37)
--- NOTE | 2018-02-01 14:21 | CONSULT ---
Consult Consult Specialty:: General Surgery Reason for Consultation:: Bloody pus discharge from midline abdominal incision - History of Present Illness Chief Complaint: Pain and drainage at midline abd incision History of Present Illness: S/p Ex lap with segmental Left colon resection with colostomy with L oophrectomy for LBO/SBO approx. 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 No: Oopherectomy (ovaries pexied up out of pelvis for XRT) - Alcohol/Substance Use Hx Alcohol Use: No History of Substance Use: reports: None - Smoking History Smoking history: Never smoked Have you smoked in the past 12 months: No - Social History ADL: Independent Home Medications - Allergies Allergies/Adverse Reactions: Allergies Allergy/AdvReac Type Severity Reaction Status Date / Time No Known Allergies Allergy Verified 02/01/18 11:26 - Home Medications Home Medications: Ambulatory Orders Cephalexin [Keflex] 500 mg PO QID #20 capsule 02/01/18 Oxycodone HCl/Acetaminophen [Percocet 5-325 mg Tablet] 1 tab PO Q8H PRN #9 tablet MDD 3 tabs 02/01/18 Family Disease History - Family Disease History Other Family History: Cousins with brain and bone cancer Review of Systems - Review of Systems Constitutional: reports: Chills. denies: Fever, Night Sweats HENT: denies: Difficult Swallowing, Nasal Congestion Neck: denies: Decreased ROM, Stiffness Cardiovascular: denies: Chest Pain, Shortness of Breath Respiratory: denies: Cough, Wheezing Gastrointestinal: reports: Other (PAIN AND DRAINAGE AT MIDLINE INCISION). denies: Constipation, Nausea, Vomiting Genitourinary: denies: Frequency, Hematuria Musculoskeletal: denies: Joint Pain, Muscle Cramps Integumentary: reports: Incision, Wound (rEDNESS AND DRAINAGE FROM MIDLINE INCISION) Psychiatric: denies: Altered Sleep Pattern, Depression Physical Exam Vital Signs: Vital Signs Temperature 98.2 F 02/01/18 11:27 Pulse Rate 94 H 02/01/18 11:27 Respiratory Rate 14 02/01/18 11:27 Blood Pressure 110/52 02/01/18 11:27 O2 Sat by Pulse Oximetry (%) 99 02/01/18 11:27 Constitutional: Yes: Well Nourished, Anxious. No: No Distress Eyes: Yes: Conjunctiva Clear, EOM Intact HENT: Yes: Atraumatic, Normocephalic Neck: Yes: Supple, Trachea Midline Cardiovascular: Yes: Regular Rate and Rhythm Respiratory: Yes: Regular. No: Cough Gastrointestinal: Yes: Soft, Abdomen, Obese, Tenderness. No: Tenderness, Rebound ...Rectal Exam: Yes: Deferred Renal/: No: Hematuria, Polyuria Musculoskeletal: No: Back Pain, Joint Stiffness Extremities: Yes: Cool. No: Erythema Edema: No Integumentary: Yes: Erythema, Incision (SLIGHT ERYTHEMA AND FULLNESS MIDWAY AND INFERIOR MIDLINE INCISION WITH CLOUDY DRAINAGE AND MILD TENDERNESS AT INFERIOR PORTION) Wound/Incision: Yes: Well Approximated, Draining, Reddened Neurological: Yes: Alert, Oriented Psychiatric: Yes: Alert, Oriented Labs: CBC, BMP 02/01/18 12:41 02/01/18 12:41 Problem List - Problems (1) Postprocedural hematoma of skin and subcutaneous tissue following other procedure Assessment/Plan: Patient presented to ED apporx. 9 days s/p ex lap, colostomy and L oophreectomy for LBO/SBO secondary to extrinsic compression of a metastatic cervical cancer. Patient denied fevers at home afebrile with normal WBC. Two areas of midline incision omar removed and drained. Drainage approx. 10 cc purulent and slightly bloody Assessment: possible infected hematoma, possible fat necrosis. Drained at bedside and packed. Plan: VNS to start daily packing changes with plain packing gauze. Will place on 5 days PO Keflex. Check cultures. ED to prescribe pain meds prn. Follow up as scheduled in clinic next Sunday. Code(s): L76.32 - POSTPROC HEMATOMA OF SKIN, SUBCU FOLLOWING OTHER PROCEDURE (2) Colostomy in place Assessment/Plan: Bag intact producing soft stool Code(s): Z93.3 - COLOSTOMY STATUS (3) Postoperative periumbilical abdominal pain Assessment/Plan: Pain resolved after opening of wound at bedside with drainage Code(s): G89.18 - OTHER ACUTE POSTPROCEDURAL PAIN; R10.33 - PERIUMBILICAL PAIN (4) History of cervical cancer Code(s): Z85.41 - PERSONAL HISTORY OF MALIGNANT NEOPLASM OF CERVIX UTERI (5) Metastasis from cervical cancer Code(s): C79.9 - SECONDARY MALIGNANT NEOPLASM OF UNSPECIFIED SITE; C53.9 - MALIGNANT NEOPLASM OF CERVIX UTERI, UNSPECIFIED
[2018-02-01 15:31] VITALS: BP 112/68; PULSE 71; TEMP 97.8
--- NOTE | 2018-02-04 08:06 | PDOC ---
Patient Follow-up (Call Back) - Post ED Follow - Up Condition at time of discharge: Stable Disposition at time of original discharge: HOME Reason for Call Back: Abnwl. Microbiology (Patient's urine preliminary report shows lactose fermenting negative bacilli. Patient currently on Keflex. Will await final report.)
--- NOTE | 2018-02-08 14:38 | PDOC ---
Patient Follow-up (Call Back) - Post ED Follow - Up Condition at time of discharge: Stable Disposition at time of original discharge: HOME Reason for Call Back: Abnwl. Microbiology (Wound culture results reveal pansensitive bacteria. Patient discharged on Keflex. Telephone call make the patient. No into the phone call, voicemail left.) - Disposition Rx Needed: No
== END 2018-02-01 15:31 | disposition home or self-care (01) ==
LOC: JER 11:18
PROC: 3E033NZ Introduction of Analgesics, Hypnotics, Sedatives into Peripheral Vein, Percutaneous Approach (ICD-10-PCS; principal; 2018-02-01)
PROC: 3E033GC Introduction of Other Therapeutic Substance into Peripheral Vein, Percutaneous Approach (ICD-10-PCS; 2018-02-01)
DX: L76.22 Postprocedural hemorrhage of skin and subcutaneous tissue following other procedure (principal); T81.4XXA Infection following a procedure, initial encounter; G89.18 Other acute postprocedural pain; R10.33 Periumbilical pain; Z85.41 Personal history of malignant neoplasm of cervix uteri; C79.89 Secondary malignant neoplasm of other specified sites; Z93.3 Colostomy status; Z90.710 Acquired absence of both cervix and uterus; Z90.721 Acquired absence of ovaries, unilateral
CPT/HCPCS: 36415; 80053; 85025; 87070; 87076; 87186; 87205; 96374; 96375; 99282-25

== ENCOUNTER 2018-03-18 09:05 | Day surgery (SDC) | payer OTHER ==
[2018-03-15 10:58] VITALS: BMI 31.1
[2018-03-18 09:28] LABS: BASO % 0.4 % (0-2.0); EOS % 1.2 % (0-4.5); HEMATOCRIT 35.9 % (32.4-45.2); HEMOGLOBIN 11.8 GM/dL (10.7-15.3); LYMPH % 29.9 % (8-40); MCH 30.1 pg (25.7-33.7); MCHC 32.9 g/dl (32.0-36.0); MEAN CELL VOLUME 91.4 fl (80-96); MEAN PLT VOLUME 8.4 fl (7.5-11.1); NEUT % 61.5 % (42.8-82.8); PLATELET COUNT 243 K/MM3 (134-434); RBC 3.93 M/mm3 (3.60-5.2); RDW 13.1 % (11.6-15.6); WHITE BLOOD COUNT 4.7 K/mm3 (4.0-10.0)
[2018-03-18 09:44] LABS: INR 1.05 (0.82-1.09); PROTHROMBIN TIME (PATIENT) 11.9 SEC (9.7-13.0)
[2018-03-18 09:56] VITALS: TEMP 97.6
[2018-03-18 15:08] VITALS: BP 106/71; PULSE 70
== END 2018-03-18 15:22 | disposition home or self-care (01) ==
LOC: JRADIR 09:05
PROVIDERS: ATTEND Internal Medicine Hematology & Oncology
PROC: 05HM33Z Insertion of Infusion Device into Right Internal Jugular Vein, Percutaneous Approach (ICD-10-PCS; principal; 2018-03-18)
DX: C53.9 Malignant neoplasm of cervix uteri, unspecified (principal)
CPT/HCPCS: 36561; 77001; C1751; 36415; 85025; 85610; C1788

== ENCOUNTER 2018-03-24 14:21 | Emergency (ER) | payer OTHER ==
--- NOTE | 2018-03-24 14:33 | PDOC ---
Attending Attestation - HPI HPI: The patient is a 37 year old female with a PMHx of cervical cancer ( metastasized to the left ovary), began chemotherapy 3 days ago, who was BIBA for generalized pain and weakness. The patient states that she "feels the pain in her bones". She states that the pain is most severe in her knees. She also notes nausea w/out vomiting this morning. She also endorses diaphoresis, headache, and abdominal pain. She took Compazine and Reglan at home without relief. She states she is able to tolerate liquids and normal output into ostomy bag. She denies fevers, chills, vomiting, trouble swallowing, chest pain , shortness of breath, or difficulty urinating. Surgical Hx: Left colectomy (January 2018) 03/24/18 15:55 - Physicial Exam PE: GENERAL: Awake, alert, and fully oriented, in moderate distress. Uncomfortable appearing. Rigoring. HEAD: No signs of trauma EYES: PERRLA, EOMI, sclera anicteric, conjunctiva clear ENT: Auricles normal inspection, hearing grossly normal, nares patent, oropharynx clear without exudates. Moist mucosa NECK: Normal ROM, supple, no lymphadenopathy, JVD, or masses LUNGS: Breath sounds equal, clear to auscultation bilaterally. No wheezes, and no crackles HEART: Regular rate and rhythm, normal S1 and S2, no murmurs, rubs or gallops ABDOMEN: Soft, diffusely tender, normoactive bowel sounds. No guarding, no rebound. No masses EXTREMITIES: Normal range of motion, no edema. No clubbing or cyanosis. No cords, erythema, or tenderness NEUROLOGICAL: Cranial nerves II through XII grossly intact. Normal speech, normal gait SKIN: Warm, Dry, normal turgor, no rashes or lesions noted. 03/24/18 15:59 <Rosemarie Lawrence - Last Filed: 03/24/18 15:59> - Medical Decision Making 03/24/18 16:46 Pt presents to the ED complaining of generalized body pain, nausea and vomiting. past history of SBO. Actively recieving cisplatin. Differential included sepsis, other infection, SBO. Will check labs and CT abdomen, give pain and nausea control, reassess. 03/24/18 16:46 <Susanna Wright - Last Filed: 03/24/18 16:46> - Medical Decision Making 03/24/18 20:26 CAT scan the abdomen and pelvis with contrast shows 1. Small pericardial fluid collection 2. 6.4 mm well-defined area of decreased density in the right lobe of the liver , most likely a cyst 3. Partial colectomy with left anterior pelvic wall, colostomy. Smokes moderate amount of stool in the colon. 4. Suggest chair. No increased weakness of wall of the splenic flexure of the colon with possible mild pericolic inflammatory changes. Small bowel is normal. Evidence of previous appendectomy. There is a small amount of free fluid in pelvis. Etiology is unclear. There is no evidence of pneumoperitoneum. Uterus is absent. Mildly prominent periaortic lymph nodes in the left at the level of the renal hilum. The urinary bladder is mildly to moderately distended. There is mild stranding of the perivesicular fat. In the proper setting. This may represent changes of cystitis. Review of her labs shows a urinary tract infection and the patient will be placed on antibiotics and discharged home in accordance with the discussion with her oncologist (Dr Tate) imp UTI <Alyssa Ibarra - Last Filed: 03/24/18 20:28>
[2018-03-24 14:41] VITALS: PULSE 82; BMI 32.0
[2018-03-24] MEDS ORDERED: ONDANSETRON 4 MG/2 ML VIAL IVPUSH ONE (14:58)
[2018-03-24] MEDS ORDERED: ACETAMINOPHEN 1000 MG/100 ML VIAL (NON FORMULARY) IVPB ONE (14:59)
[2018-03-24] MEDS ORDERED: SODIUM CHLORIDE 0.9% 500 ML INFUS.BAG IV ONE (15:01)
[2018-03-24] MEDS ORDERED: ONDANSETRON 4 MG/2 ML VIAL ONE (15:27)
[2018-03-24] MEDS ORDERED: ACETAMINOPHEN INJECTION 100 ML IVPB ONE (15:27)
--- NOTE | 2018-03-24 15:30 | PDOC ---
History of Present Illness <FredAlyssa Zabrina - Last Filed: 03/24/18 20:06> - General History Source: Patient Exam Limitations: No Limitations - History of Present Illness Initial Comments: 03/24/18 15:16 37 y/o female presenting to [facility] via ambualnce complaining of generalized pain and weakness. Pt states the pain is most severe in both of her knees and "all of my bones." The sensation woke her from sleep this morning (24 March 2018) around 6am. Additionally experiencing nausea without vomiting. Pt attempted relief at home with Compazine and Reglan without relief of her symptoms. 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 She is s/p L colectomy in January 2018. Began receiving Carboplatin and Taxol chemotherapy this past (21 March 2018). Pt endorses diaphoresis, headache , and abdominal pain. Reports able to drink liquids and normal output into ostomy bag. She denies fevers, chills, vomiting, trouble swallowing, chest pain , shortness of breath, or difficulty urinating. <Phil Vasquez - Last Filed: 03/24/18 20:21> - General Chief Complaint: Pain, Acute Stated Complaint: BODYACHE/WEAKNESS Time Seen by Provider: 03/24/18 14:32 Past History <FredAlyssa Zabrina - Last Filed: 03/24/18 20:06> - Past Medical History Anemia: Yes Asthma: No Cancer: Yes (cervical, ovarian, colon) Cardiac Disorders: No CVA: No COPD: No CHF: No Dementia: No Diabetes: No GI Disorders: Yes (Diverticulitis) Disorders: No HTN: No Hypercholesterolemia: No Liver Disease: No Seizures: No Thyroid Disease: No - Surgical History Abdominal Surgery: Yes (CALIXTO) Appendectomy: No Cardiac Surgery: No Cholecystectomy: No GI Surgery: Yes (COLOSTOMY) Lung Surgery: No Neurologic Surgery: No Orthopedic Surgery: No - Reproductive History Cervical CA: Yes - Immunization History Immunization Up to Date: Yes - Suicide/Smoking/Psychosocial Hx Smoking History: Never smoked Have you smoked in the past 12 months: No Hx Alcohol Use: Yes (occ) Drug/Substance Use Hx: No Substance Use Type: None Hx Substance Use Treatment: No <Phil Vasquez - Last Filed: 03/24/18 20:21> - Past Medical History Allergies/Adverse Reactions: Allergies Allergy/AdvReac Type Severity Reaction Status Date / Time No Known Allergies Allergy Verified 03/24/18 20:05 Home Medications: Ambulatory Orders Ciprofloxacin [Cipro -] 500 mg PO Q12H #10 tablet 03/24/18 Dexamethasone 20 mg PO AM PRN 03/24/18 Ondansetron HCl [Zofran] 8 mg PO BID PRN 03/24/18 Pantoprazole Sodium [Protonix] 40 mg PO DAILY PRN 03/24/18 Prochlorperazine Maleate [Compazine] 10 mg PO TID PRN 03/24/18 Review of Systems - Review of Systems Able to Perform ROS?: Yes Is the patient limited Tunisian proficient: No Constitutional: Yes: Chills, Diaphoresis, Loss of Appetite, Weakness. No: Fever HEENTM: No: Blurred Vision, Recent change in vision, Throat Pain, Difficulty Swallowing Respiratory: No: Cough, Shortness of Breath Cardiac (ROS): No: Chest Pain, Lightheadedness, Palpitations, Syncope ABD/GI: Yes: Nausea. No: Poor Fluid Intake : No: Burning, Dysuria Musculoskeletal: Yes: Muscle Pain (Generalized muscle ache) Integumentary: No: Bruising, Rash Neurological: Yes: Headache, Weakness. No: Dizziness Hematologic/Lymphatic: No: Easy Bleeding <Phil Vasquez - Last Filed: 03/24/18 20:21> *Physical Exam - Vital Signs Last Vital Signs Temp Pulse Resp BP Pulse Ox 98.6 F 82 18 110/66 99 03/24/18 20:04 03/24/18 19:04 03/24/18 19:04 03/24/18 19:04 03/24/18 19:04 <Alyssa Ibarra - Last Filed: 03/24/18 20:06> - Vital Signs Last Vital Signs Temp Pulse Resp BP Pulse Ox 98.6 F 82 18 129/86 100 03/24/18 14:39 03/24/18 14:39 03/24/18 14:39 03/24/18 14:39 03/24/18 14:39 - Physical Exam Comments: 03/24/18 15:51 Adult female sickly appearing with rigors but in no acute life threat. Alert and oriented x4. Answered all questions appropriately and completely. Obese body habitus. Pt discovered semi-fowlers on hospital bed. HEENT: positive: Normal Voice, Pharynx Normal, Other (Moist mucosal membranes). negative: Pale Conjunctivae, Scleral Icterus (R), Scleral Icterus (L) Neck: positive: Tender, Trachea midline, Supple Respiratory/Chest: positive: Lungs Clear, Normal Breath Sounds. negative: Chest Tender, Respiratory Distress, Accessory Muscle Use Cardiovascular: positive: Regular Rhythm, Regular Rate, S1, S2. negative: Edema , JVD, Murmur, Gallop/S3, Gallop/S4 Gastrointestinal/Abdominal: positive: Tender (Tender with facial grimace to palpation in all four quadrants. ), Soft, Other (Ostomy bag in place with succus noted, no blood.). negative: Guarding, Rebound Musculoskeletal: positive: Other (Active and passive ) Integumentary: positive: Normal Color, Diaphoresis, Other (Port site on upper right chest, covered with steri strips, clean, dry, and intact.). negative: Rash, Bruising Neurologic: positive: Fully Oriented, Alert, Normal Response <Phil Vasquez - Last Filed: 03/24/18 20:21> ED Treatment Course - LABORATORY CBC & Chemistry Diagram: 03/24/18 15:43 03/24/18 15:43 - ADDITIONAL ORDERS Additional order review: Laboratory Results 03/24/18 03/24/18 03/24/18 16:02 15:43 15:43 Sodium 139 Potassium 3.4 L Chloride 104 Carbon Dioxide 26 Anion Gap 9 BUN 13 Creatinine 0.8 Creat Clearance w eGFR > 60 Random Glucose 95 Lactic Acid 2.0 Calcium 8.8 Urine Color Straw Urine Appearance Clear Urine pH 8.0 D Ur Specific [place] 1.009 Urine Protein Negative Urine Glucose (UA) Negative Urine Ketones Negative Urine Blood Negative Urine Nitrite Negative Urine Bilirubin Negative Urine Urobilinogen Negative Ur Leukocyte Esterase 2+ H Urine WBC (Auto) 33 Urine RBC (Auto) <1 Ur Epithelial Cells Rare Urine Mucus Rare 03/24/18 15:43 RBC 4.09 MCV 90.2 MCHC 33.4 RDW 13.3 MPV 9.7 Neutrophils % No Result Required. Lymphocytes % No Result Required. - Medications Given in the ED: ED Medications Discontinued Medications Generic Name Dose Route Start Last Admin Trade Name Freq PRN Reason Stop Dose Admin Acetaminophen 1,000 mg 03/24/18 14:59 03/24/18 15:42 Ofirmev Injection - IVPB 03/24/18 15:00 1,000 mg ONCE ONE Administration Ondansetron HCl 4 mg 03/24/18 14:58 03/24/18 15:42 Zofran Injection IVPUSH 03/24/18 14:59 4 mg ONCE ONE Administration Sodium Chloride 1,000 ml 03/24/18 15:01 03/24/18 15:42 Normal Saline - IV 03/24/18 15:02 1,000 ml ONCE ONE Administration <Alyssa Ibarra - Last Filed: 03/24/18 20:06> - LABORATORY CBC & Chemistry Diagram: 03/24/18 15:43 03/24/18 15:43 - RADIOLOGY Radiology Studies Ordered: Category Date Time Status ABDOMEN & PELVIS CT WITH CONTR [CT] Stat CT Scan 03/24/18 15:02 Ordered <Phil Vasquez - Last Filed: 03/24/18 20:21> Medical Decision Making - Medical Decision Making 03/24/18 20:06 Consulted hematology/oncology -labs review UTI -feels much better after IVF,pain meds <Alyssa Ibarra - Last Filed: 03/24/18 20:06> - Medical Decision Making 03/24/18 16:00 37 y/o female with h/o cervical cancer with mets to L ovary complaining of generalized body aches, abdominal pain, diaphoresis, and nausea. Began chemo therapy (Carboplatin and Taxol) last (21 March 2018). Vitals unremarkable. Afebrile. Rigors appreciated but otherwise unrevealing physical exam. Concern for infectious ideology given recent chemo therapy. Additionally considering medication side effect. Will obtain EKG, CBC, BMP, Lactic acid, UA w / culture, and CT of abdomen and pelvis with contrast. Will trial acetaminophen , ondansetron, and 1L of NS for symptom relief. 03/24/18 16:13 Pt reports pain persists in both legs but she is no longer experiencing chills. Rigors have ceased. Declined additional pain medication at this time. 03/24/18 16:41 Pt found sleeping comfortably. CBC revealed small leukocytosis and neutropenia, which is expected given recent chemo treatment. BMP revealed hypokalemia of 3.4, which does not require correcting at this time. 03/24/18 19:21 Pt reports generalized pain has significantly improved but her knees continue to ache. Her nausea has resolved. States overall she feels much better. Lactic acid not elevated. UA positive for leukocyte esterase, which raises suspicion for cystitis in setting of neutropenia. CT of abd/pelvis showed no evidence of pneumoperitoneum; mild stranding of perivesicular fat, which may be suggestive for cystitis. Discussed results with patient, who expressed verbal understanding. Will consult oncologist to review presentation. 03/24/18 19:52 Still awaiting callback from oncologist. Will administer single dose of Levaquin IV for cystitis in setting of neutropenia. 03/24/18 20:[address] Tate of pt's oncology team. He felt pt was stable for discharge to home with a five day course of Ciprofloxacin. Discussed recommendations and plan to discharge home with pt. She expressed verbal understanding and agreement with plan. <Phil Vasquez - Last Filed: 03/24/18 20:21> *DC/Admit/Observation/Transfer <Alyssa Ibarra - Last Filed: 03/24/18 20:06> <Phil Vasquez - Last Filed: 03/24/18 20:21> Diagnosis at time of Disposition: Cystitis - Discharge Dispostion Disposition: HOME Condition at time of disposition: Improved - Referrals Referrals: Ernesto De La Garza MD [Primary Care Provider] - - Patient Instructions Printed Discharge Instructions: DI for Acute Cystitis Additional Instructions: Please take the prescribed antibiotic, Ciprofloxacin, twice a day for five days. The prescription has been electronically [facility] to [facility]. Follow up with your oncologist if you continue to experience discomfort. Return to the emergency room if you begin to experience significantly increased pain, extreme nausea/vomiting, or you pass out.
[2018-03-24 16:18] LABS: HEMATOCRIT 36.9 % (32.4-45.2); HEMOGLOBIN 12.3 GM/dL (10.7-15.3); MCH 30.1 pg (25.7-33.7); MCHC 33.4 g/dl (32.0-36.0); MEAN CELL VOLUME 90.2 fl (80-96); MEAN PLT VOLUME 9.7 fl (7.5-11.1); PLATELET COUNT 183 K/MM3 (134-434); RBC 4.09 M/mm3 (3.60-5.2); RDW 13.3 % (11.6-15.6); WHITE BLOOD COUNT 12.9 K/mm3 (4.0-10.0)
[2018-03-24 16:23] LABS: URINE APPEARANCE CLEAR; URINE BILIRUBIN NEGATIVE (<2.0 mg/dL); URINE COLOR STRAW; URINE GLUCOSE (UA) NEGATIVE (NEGATIVE); URINE KETONE NEGATIVE (NEGATIVE); URINE NITRITE NEGATIVE (NEGATIVE); URINE PROTEIN NEGATIVE (NEGATIVE); URINE UROBILINOGEN NEGATIVE mg/dL (0.2-1.0)
[2018-03-24 16:29] LABS: URINE LEUK ESTERASE 2+ (NEGATIVE)
[2018-03-24 16:30] LABS: EPI CELLS RARE /HPF (FEW); URINE MUCUS RARE
[2018-03-24 16:32] LABS: ANION GAP 9 (8-16); BLOOD UREA NITROGEN 13 mg/dL (7-18); CALCIUM 8.8 mg/dL (8.5-10.1); CHLORIDE 104 mmol/L (98-107); CO2 26 mmol/L (21-32); CREATININE 0.8 mg/dL (0.55-1.02); GLUCOSE,RANDOM 95 mg/dL (74-106); POTASSIUM 3.4 mmol/L (3.5-5.1); SODIUM 139 mmol/L (136-145)
[2018-03-24 17:55] LABS: PLATELET ESTIMATE ADEQUATE
[2018-03-24 19:05] VITALS: BP 110/66
[2018-03-24 20:05] VITALS: TEMP 98.6
== END 2018-03-24 21:30 | disposition home or self-care (01) ==
LOC: JER 14:21
PROC: 3E03329 Introduction of Other Anti-infective into Peripheral Vein, Percutaneous Approach (ICD-10-PCS; principal; 2018-03-24)
PROC: 3E033NZ Introduction of Analgesics, Hypnotics, Sedatives into Peripheral Vein, Percutaneous Approach (ICD-10-PCS; 2018-03-24)
PROC: 3E0337Z Introduction of Electrolytic and Water Balance Substance into Peripheral Vein, Percutaneous Approach (ICD-10-PCS; 2018-03-24)
PROC: 3E033GC Introduction of Other Therapeutic Substance into Peripheral Vein, Percutaneous Approach (ICD-10-PCS; 2018-03-24)
DX: N30.00 Acute cystitis without hematuria (principal); Z85.41 Personal history of malignant neoplasm of cervix uteri; Z85.43 Personal history of malignant neoplasm of ovary; Z85.038 Personal history of other malignant neoplasm of large intestine
CPT/HCPCS: 36415; 74177-TC; 80048; 81003; 81015; 83605; 85025; 87086; 96365; 96375; 99283-25; J0131

== ENCOUNTER 2018-04-11 07:31 | Day surgery (SDC) | payer OTHER ==
[2018-04-11] MEDS ORDERED: SODIUM CHLORIDE 500 ML IV ONE (08:00)
[2018-04-11] MEDS ORDERED: FOSAPREPITANT DIMEGLUMINE 150 MG in SODIUM CHLORIDE 145 ML IVPB ONE (08:30)
[2018-04-11] MEDS ORDERED: DEXAMETHASONE INJECTION 20 MG, DIPHENHYDRAMINE 50 MG, RANITIDINE INJECTION 50 MG in SOD... IVPB ONE (08:30)
[2018-04-11] MEDS ORDERED: PALONOSETRON HCL 0.25 MG/5 ML VIAL IVPUSH ONE (08:30)
[2018-04-11] MEDS ORDERED: PACLITAXEL IVPB ONE (09:00)
[2018-04-11] MEDS ORDERED: SODIUM CHLORIDE IVPB ONE (09:00)
[2018-04-11 09:48] LABS: BASO % 0.7 % (0-2.0); EOS % 0.4 % (0-4.5); HEMATOCRIT 32.8 % (32.4-45.2); HEMOGLOBIN 11.2 GM/dL (10.7-15.3); LYMPH % 16.2 % (8-40); MCH 30.6 pg (25.7-33.7); MEAN CELL VOLUME 90.1 fl (80-96); MONO % 4.6 % (3.8-10.2); NEUT % 78.1 % (42.8-82.8); PLATELET COUNT 367 K/MM3 (134-434); RBC 3.65 M/mm3 (3.60-5.2); RDW 13.6 % (11.6-15.6); WHITE BLOOD COUNT 5.4 K/mm3 (4.0-10.0)
[2018-04-11 10:08] LABS: ALBUMIN 3.8 g/dl (3.4-5.0); ALBUMIN 3.9 g/dl (3.4-5.0); ANION GAP 7 (8-16); BILIRUBIN,DIRECT < 0.2 mg/dL (0.0-0.2); BILIRUBIN,TOTAL 0.2 mg/dL (0.2-1.0); BLOOD UREA NITROGEN 16 mg/dL (7-18); CALCIUM 9.3 mg/dL (8.5-10.1); CHLORIDE 109 mmol/L (98-107); CO2 27 mmol/L (21-32); CREATININE 0.9 mg/dL (0.55-1.02); GLUCOSE,RANDOM 91 mg/dL (74-106); MAGNESIUM 1.7 mg/dL (1.8-2.4); POTASSIUM 4.1 mmol/L (3.5-5.1); SGOT/AST 11 U/L (15-37); SGOT/AST 15 U/L (15-37); SGPT/ALT 26 U/L (12-78); SGPT/ALT 27 U/L (12-78); SODIUM 143 mmol/L (136-145); TOT PROT 7.7 g/dl (6.4-8.2)
[2018-04-11 10:09] LABS: ALK PHOS 90 U/L (45-117)
[2018-04-11 10:10] LABS: ALK PHOS 91 U/L (45-117); BILIRUBIN,TOTAL 0.2 mg/dL (0.2-1.0); TOT PROT 7.7 g/dl (6.4-8.2)
[2018-04-11] MEDS ORDERED: SODIUM CHLORIDE IV ONE ×2 (13:00→18:05)
[2018-04-11] MEDS ORDERED: BEVACIZUMAB IV ONE ×2 (13:00→18:05)
[2018-04-11] MEDS ORDERED: MAGNESIUM SULF 50% (8.12 MEQ/2 ML-1 GM VIAL) IVPB ONE (13:30)
[2018-04-11] MEDS ORDERED: PORTA CATH FLUSH 10 ML IVPUSH ONE (15:46)
[2018-04-11] MEDS: MAGNESIUM 1GM/D5W - 1 GM/100 ML IVPB IVPB SCH (19:28)
[2018-04-11] MEDS: SODIUM CHLORIDE 1,000 ML IV SCH (20:35)
--- NOTE | 2018-04-11 23:31 | HP ---
Satellite [facility] - Chief Complaint Chief Complaint: Here for hydration post carbo/taxol/avastin. Tolerated chemotherapy well. Feels tired. 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/L oophrectomy) Renal/: Yes: Cancer (cervical 2014) Heme/Onc: Yes: Cancer (cervical 2014 s/p chemo/XRT done 08/01, hyst 03/31) - Current Medications Current Medications: Home Medications Medication Instructions Recorded Ciprofloxacin [Cipro -] 500 mg PO Q12H #10 tablet 03/24/18 Dexamethasone 20 mg PO AM PRN 03/24/18 Ondansetron HCl [Zofran] 8 mg PO BID PRN 03/24/18 Pantoprazole Sodium [Protonix] 40 mg PO DAILY PRN 03/24/18 Prochlorperazine Maleate 10 mg PO TID PRN 03/24/18 [Compazine] Satellite Physical Exam - Physical Examination Vital Signs: Vital Signs Period Temp Pulse Resp BP Sys/Luna Pulse Ox Last 24 Hr 98.1 F-98.2 F 83-86 18-18 109-121/63-75 97 General Appearance: Well Nourished, Alert & Oriented x3 Lung: Clear to auscultation, Normal air movement Heart: Regular rate & rhythm, Normal S1, Normal S2 Abdomen: Soft, No tenderness, Normal bowel sounds Extremities: No edema Neurological: Intact Satellite Impression/Plan - Impression/Plan Impression: 37 y/o patient with recurrent cervical cancer. On taxol/carbo/ avastin. for IV hydration. replete Mg. Neulasta support
[2018-04-12] MEDS: SODIUM CHLORIDE 1,000 ML IV SCH (02:34)
[2018-04-12] MEDS ORDERED: DEXAMETHASONE SOD PHOSPHATE 4 MG/1 ML VIAL IVPB ONE (06:01)
[2018-04-12] MEDS: MAGNESIUM 1GM/D5W 100ML - 100 ML IVPB IVPB SCH ×2 (06:31→08:31)
[2018-04-12] MEDS ORDERED: PANTOPRAZOLE 40 MG TABLET (FP) PO SCH (10:00)
[2018-04-12] MEDS ORDERED: LORATADINE 10 MG TABLET PO SCH (10:00)
[2018-04-12 11:22] VITALS: BP 124/73; PULSE 95; TEMP 98.7
[2018-04-12 13:42] LABS: URINE APPEARANCE CLEAR; URINE BILIRUBIN NEGATIVE (<2.0 mg/dL); URINE COLOR STRAW; URINE GLUCOSE (UA) NEGATIVE (NEGATIVE); URINE KETONE NEGATIVE (NEGATIVE); URINE LEUK ESTERASE NEGATIVE (NEGATIVE); URINE NITRITE NEGATIVE (NEGATIVE); URINE PROTEIN NEGATIVE (NEGATIVE); URINE UROBILINOGEN NEGATIVE mg/dL (0.2-1.0)
== END 2018-04-12 08:44 | disposition home or self-care (01) ==
LOC: JONCCHEMO 07:31 → J7W 12:17 → JONCCHEMO 04-12 08:43
PROVIDERS: ATTEND Internal Medicine Hematology & Oncology
DX: Z51.11 Encounter for antineoplastic chemotherapy (principal); C53.9 Malignant neoplasm of cervix uteri, unspecified; C79.9 Secondary malignant neoplasm of unspecified site
CPT/HCPCS: 36415; 80053; 80076; 81003; 83735; 85025; 87086; 96361; 96366; 96367; 96375; 96413; 96415; 96417; J1100; J1453; J2469; J7030; J9035

== ENCOUNTER 2018-04-12 07:29 | Day surgery (SDC) | payer OTHER ==
[2018-04-12] MEDS ORDERED: PEGFILGRASTIM 6 MG/0.6 ML DISP.SYRIN SQ ONE (08:00)
[2018-04-12 16:40] VITALS: BP 122/70; PULSE 81; TEMP 98.3
== END 2018-04-12 16:45 | disposition home or self-care (01) ==
LOC: JONCCHEMO 07:29 → J7W 16:16 → JONCCHEMO 16:45
PROVIDERS: ATTEND Internal Medicine Hematology & Oncology
PROC: 3E013GC Introduction of Other Therapeutic Substance into Subcutaneous Tissue, Percutaneous Approach (ICD-10-PCS; principal; 2018-04-12)
DX: C53.9 Malignant neoplasm of cervix uteri, unspecified (principal); C79.9 Secondary malignant neoplasm of unspecified site; Z76.89 Persons encountering health services in other specified circumstances
CPT/HCPCS: 96372; J2505

== ENCOUNTER 2018-04-26 13:55 | Emergency (ER) | payer OTHER ==
[2018-04-26 14:18] VITALS: BMI 32.0
--- NOTE | 2018-04-26 14:44 | PDOC ---
History of Present Illness - General Chief Complaint: Pain, Acute Stated Complaint: ABD PAIN Time Seen by Provider: 04/26/18 14:30 - History of Present Illness Initial Comments: 04/26/18 15:58 37 year old female with a PMH metastatic cervical cancer with mets to her tube, ovary (s/p hysterectomy + colectomy w/colostomy bag) currently on chemotherapy ( last treatment 04/06, next treatment scheduled 05/07) presents to our ED c/o abdominal pain and discharge from her colostomy site. Pain is sharp, 10/10, localized to around her colostomy site. Denies any associated fevers/chills. Tolerating PO intake. NKDA Surgical: hysterectomy, colectomy Social: denies toxic habits PMD: Dr. Ernesto De La Garza Past History - Past Medical History Allergies/Adverse Reactions: Allergies Allergy/AdvReac Type Severity Reaction Status Date / Time No Known Allergies Allergy Verified 04/26/18 14:15 Home Medications: Ambulatory Orders Ciprofloxacin [Cipro -] 500 mg PO Q12H #10 tablet 03/24/18 Dexamethasone 20 mg PO AM PRN 03/24/18 Ondansetron HCl [Zofran] 8 mg PO BID PRN 03/24/18 Pantoprazole Sodium [Protonix] 40 mg PO DAILY PRN 03/24/18 Prochlorperazine Maleate [Compazine] 10 mg PO TID PRN 03/24/18 Anemia: Yes Asthma: No Cancer: Yes (cervical metastatic to L ovary,tube and colon) Cardiac Disorders: No CVA: No COPD: No CHF: No Dementia: No Diabetes: No GI Disorders: No Disorders: No HTN: No Hypercholesterolemia: No Liver Disease: No Seizures: No Thyroid Disease: No - Surgical History Abdominal Surgery: Yes (CALIXTO) Appendectomy: No Cardiac Surgery: No Cholecystectomy: No GI Surgery: Yes (COLOSTOMY) Lung Surgery: No Neurologic Surgery: No Orthopedic Surgery: No Comments:: 04/26/18 16:37 Robotic hysterectomy; Josh's w/en bloc resection descending colon w/left ovary and portion of tube - Reproductive History Cervical CA: Yes - Immunization History Immunization Up to Date: Yes - Suicide/Smoking/Psychosocial Hx Smoking History: Never smoked Have you smoked in the past 12 months: No Hx Alcohol Use: Yes (occ) Drug/Substance Use Hx: No Substance Use Type: None Hx Substance Use Treatment: No Review of Systems - Review of Systems Constitutional: No: Chills, Fever Respiratory: No: Orthopnea Cardiac (ROS): No: Chest Pain, Lightheadedness, Palpitations, Syncope ABD/GI: Yes: Abdominal cramping. No: Nausea, Vomiting : No: Burning, Dysuria *Physical Exam - Vital Signs Last Vital Signs Temp Pulse Resp BP Pulse Ox 98.3 F 126 H 17 106/80 99 04/26/18 14:15 04/26/18 14:15 04/26/18 14:15 04/26/18 14:15 04/26/18 14:15 - Physical Exam General Appearance: Yes: Nourished, Appropriately Dressed Neck: positive: Trachea midline, Supple Respiratory/Chest: positive: Lungs Clear, Normal Breath Sounds Cardiovascular: positive: Regular Rate, S1, S2 Gastrointestinal/Abdominal: positive: Normal Bowel Sounds (Colostomy bag in place - no erythema/warmth edema @ site; 1 cm opening with small non-surgical opening @ 11 o'clock position - unclear if fisulta ), Other Musculoskeletal: negative: CVA Tenderness (R), CVA Tenderness (L) Extremity: positive: Normal Capillary Refill, Normal Inspection Integumentary: positive: Normal Color, Dry, Warm Neurologic: positive: Fully Oriented, Alert ED Treatment Course - LABORATORY CBC & Chemistry Diagram: 04/26/18 14:40 04/26/18 14:40 Medical Decision Making - Medical Decision Making 04/26/18 16:39 37 year old female presents with abdominal pain around colostomy site. VS unremarkable. Concern for new fistula @ colostomy site, low clinical suspicion for active infection. No leukocytosis. H/H stable Dr. Erickson at bedside, notes stoma is stenosed Requests CT abdomen w/IV + PO CT Abdomen shows no stomal abnormalities. Case d/w Dr. Erickson - agrees w/discharge home with outpatient follow-up in Dr. Erickson's office. *DC/Admit/Observation/Transfer Diagnosis at time of Disposition: Abdominal pain Qualifiers: Abdominal location: left lower quadrant Qualified Code(s): R10.32 - Left lower quadrant pain - Discharge Dispostion Disposition: HOME Condition at time of disposition: Good Decision to Admit order: No - Referrals Referrals: Ady Erickson MD [Staff Physician] - Ernesto De La Garza MD [Primary Care Provider] - - Patient Instructions Printed Discharge Instructions: DI for Abdominal Pain-Adult Additional Instructions: Make an appointment to see Dr. Erickson on Sunday (04/29/18) Return to the Emergency Department for any new/worsening/concerning symptoms. - Post Discharge Activity
[2018-04-26 15:25] LABS: BASO % 0.4 % (0-2.0); EOS % 0.4 % (0-4.5); HEMATOCRIT 35.4 % (32.4-45.2); HEMOGLOBIN 11.9 GM/dL (10.7-15.3); LYMPH % 16.5 % (8-40); MCH 30.5 pg (25.7-33.7); MCHC 33.5 g/dl (32.0-36.0); MEAN CELL VOLUME 91.1 fl (80-96); MEAN PLT VOLUME 8.4 fl (7.5-11.1); MONO % 4.8 % (3.8-10.2); NEUT % 77.9 % (42.8-82.8); PLATELET COUNT 234 K/MM3 (134-434); RBC 3.89 M/mm3 (3.60-5.2); RDW 14.5 % (11.6-15.6); WHITE BLOOD COUNT 7.6 K/mm3 (4.0-10.0)
[2018-04-26 15:40] LABS: ALBUMIN 4.1 g/dl (3.4-5.0); ANION GAP 7 (8-16); BILIRUBIN,TOTAL 0.2 mg/dL (0.2-1.0); BLOOD UREA NITROGEN 14 mg/dL (7-18); CALCIUM 9.4 mg/dL (8.5-10.1); CHLORIDE 104 mmol/L (98-107); CO2 29 mmol/L (21-32); CREATININE 0.8 mg/dL (0.55-1.02); GLUCOSE,RANDOM 94 mg/dL (74-106); POTASSIUM 4.1 mmol/L (3.5-5.1); SGOT/AST 18 U/L (15-37); SGPT/ALT 29 U/L (12-78); SODIUM 140 mmol/L (136-145); TOT PROT 8.3 g/dl (6.4-8.2)
[2018-04-26 15:41] LABS: ALK PHOS 104 U/L (45-117)
[2018-04-26 15:42] LABS: INR 1.07 (0.83-1.09); PROTHROMBIN TIME (PATIENT) 12.1 SEC (9.7-13.0)
--- NOTE | 2018-04-26 16:31 | PDOC ---
Attending Attestation - Resident Resident Name: OmairaPriscila - ED Attending Attestation I have performed the following: I have examined & evaluated the patient, The case was reviewed & discussed with the resident, I agree w/resident's findings & plan, Exceptions are as noted - HPI HPI: 04/26/18 16:30 37y F hx of uterine ca with mets to stomach/spine presents with abd pain. pt with colostomy bag and pain to the site of the colostomy bag. denies any n/v, fever/chills, diarrhea, dysuria at the site of colostomy site, there is a small area iflammation/pain abd otherwise soft nontender ct abd surgery consultation reassess - Physicial Exam PE: 04/28/18 16:30 see above - Medical Decision Making pt signed out to evening team to fu with results and reasssess the pt Heart Score/ECG Review - ECG Impressions Comment:: 04/26/18 17:19 Twelve-lead EKG was performed and reviewed by me. There is normal sinus rhythm with a normal rate. Rate of 80 Impression: Normal twelve-lead EKG
--- NOTE | 2018-04-26 17:22 | CONSULT ---
Consult Consult Specialty:: General Surgery Referred by:: Dr. Castano Reason for Consultation:: colostomy site with additional opening, ?purulence - History of Present Illness Chief Complaint: colostomy with new tiny opening above it, yellow drainage, pain and tenderness History of Present Illness: 37yo F with metastatic cervical CA s/p colostomy and L colectomy with en bloc resection of L ovary and portion of L tube 01/23/18, h/o robotic hysterectomy with ovarian transposition and chemo/XRT summer 2014 for cervical CA, now on chemo q3w with Carbo/Taxol/Avastin and Neulasta, last 04/11 next scheduled 05/07, presents with c/o pain and tenderness with firm area just above stoma and new tiny opening just above it with yellow drainage, first noticed this morning. She does have pasty ribbons and pieces of stool from colostomy, no urinary complaints, no F/C, no recent N/V. Chemo usually hits her hard for about 5 days , but she only uses the support meds as needed (Zofran, etc). She has had some difficulty with pouching the opening up against the stoma edge, as it has gotten smaller and more sunken, and the peristomal skin is irritated and painful. She was last seen in surgical followup over a month ago, and her midline wound healed up after being treated with packed dressing changes for a while for localized wound infection postoperatively. She came to ER today after calling my office. In ER, wbc is 7, she is afebrile, and renal function is normal. H/H is also only mildly anemic. She is seen on stretcher, and her only complaint is localized pain, tenderness and the drainage/"new hole." She ate a meal just before I came to see her. 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 en bloc w /L oophorectomy and portion of tube, colostomy (Josh's)) Renal/: Yes: Cancer (cervical 2014, metastatic to left ovary/tube grown into L colon) Heme/Onc: Yes: Cancer (metastatic cervical (s/p original chemo/pelvic XRT)), Current Chemotherapy (carbo/taxol/avastin, with Neulasta support, last 04/11, next 05/07) - Past Surgical History Past Surgical History: Yes: Colectomy (left en bloc w/L ovary), Colostomy, Hysterectomy (laparoscopic/vaginal, complete), Oopherectomy (ovaries pexied up out of pelvis for XRT 2014; 01/23/18 L ovary taken en bloc w/L colon and portion of L tube) - Alcohol/Substance Use Hx Alcohol Use: No (formerly social) History of Substance Use: reports: None - Smoking History Smoking history: Never smoked Have you smoked in the past 12 months: No - Social History ADL: Independent History of Recent Travel: No Home Medications - Allergies Allergies/Adverse Reactions: Allergies Allergy/AdvReac Type Severity Reaction Status Date / Time No Known Allergies Allergy Verified 04/26/18 14:15 - Home Medications Home Medications: Ambulatory Orders Ciprofloxacin [Cipro -] 500 mg PO Q12H #10 tablet 03/24/18 Dexamethasone 20 mg PO AM PRN 03/24/18 Ondansetron HCl [Zofran] 8 mg PO BID PRN 03/24/18 Pantoprazole Sodium [Protonix] 40 mg PO DAILY PRN 03/24/18 Prochlorperazine Maleate [Compazine] 10 mg PO TID PRN 03/24/18 Home Medications (free text): chemo q3wks - carboplatin, taxol, avastin w/ Neulasta support Family Disease History - Family Disease History Family Disease History: Diabetes: Grandparent Other Family History: father's side - bone CA Review of Systems - Review of Systems Constitutional: denies: Chills, Fever Eyes: reports: Other (wears glasses). denies: Recent Change in Vision HENT: reports: Other (alopecia from chemo). denies: Difficult Swallowing, Throat Pain Neck: denies: Swollen Glands, Tenderness Cardiovascular: denies: Chest Pain, Palpitations Respiratory: denies: Cough, SOB Gastrointestinal: reports: Abdominal Pain (with hpi), Nausea (only with chemo for several days), Vomiting (not recently, only sometimes w/chemo for several days), Other (colostomy - pasty stool). denies: Constipation, Diarrhea Genitourinary: denies: Burning, Dysuria Breasts: reports: No Symptoms Reported Musculoskeletal: denies: Back Pain, Joint Pain, Muscle Pain Integumentary: reports: Rash (dermatitis at ostomy site), Other (see hpi) Neurological: denies: Dizziness, Headache Physical Exam Vital Signs: Vital Signs Temperature 98.3 F 04/26/18 14:15 Pulse Rate 126 H 04/26/18 14:15 Respiratory Rate 17 04/26/18 14:15 Blood Pressure 106/80 04/26/18 14:15 O2 Sat by Pulse Oximetry (%) 99 04/26/18 14:15 Constitutional: Yes: Well Nourished, No Distress, Calm Eyes: Yes: Conjunctiva Clear, EOM Intact HENT: Yes: Atraumatic, Normocephalic Neck: Yes: Supple, Trachea Midline Cardiovascular: Yes: Regular Rate and Rhythm. No: Murmur Respiratory: Yes: Regular, CTA Bilaterally Gastrointestinal: Yes: Normal Bowel Sounds, Soft, Tenderness (at/just above ostomy only), Other (colostomy appears retracted with skin/scar stenosing over it - opening currently 1 x 0.5cm - with tiny opening just above stoma, which probes only ~1cm deep and does not appear to connect directly into stoma tract, purulence vs stool output? pasty, soft light green/bella stool from stoma; area tender, mildly indurated above stoma opening, near tiny opening; skin very irritated with fecal dermatitis and scarring). No: Distention, Hernia, Tenderness, Epigastrium, Tenderness, Rebound ...Rectal Exam: Yes: Deferred Renal/: No: CVA Tenderness - Left, CVA Tenderness - Right Musculoskeletal: No: Joint Stiffness, Joint Swelling Extremities: No: Cool, Cyanosis Edema: No Peripheral Pulses WNL: Yes Integumentary: Yes: Other (see above) Neurological: Yes: Alert, Oriented Psychiatric: Yes: Alert, Oriented Labs: CBC, BMP 04/26/18 14:40 04/26/18 14:40 INR, PTT INR 1.07 (0.83-1.09) 04/26/18 14:40 Imaging - Results Cat Scan: Report Reviewed, Image Reviewed (images personally reviewed - oral contrast in colon but not yet to level of ostomy or just under; no collection/ abscess peristomally, no apparent stomal abnormalities; no acute changes since scan) Problem List - Problems (1) Colostomy stenosis Assessment/Plan: stoma appears retracted beneath skin/scar stenosing over it tiny additional peristomal opening may represent fistula tract or subcutaneous abscess spontaneously opened? will obtain CT with PO/IV contrast - contrast not quite to stoma but no clear abscess/collection peristomally or other suspicious findings at ostomy site wbc ok, no fever colostomy functioning with pasty light green/bella stool output may need to discuss local revision or surgical intervention, but does not need to happen emergently pt instructed to continue digital dilation of stoma as she is able to tolerate protect skin peristomally with stomahesive powder and keeping appliance opening as close to stomal opening as possible I will confer with colleagues and her oncologist and contact her on Sunday regarding plan going forward. Ok to d/c home tonight. 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
[2018-04-26 21:51] VITALS: BP 113/64; PULSE 75; TEMP 98.8
--- NOTE | 2018-04-27 09:05 | EKG ---
Test Reason : Blood Pressure : / mmHG Vent. Rate : 080 BPM Atrial Rate : 080 BPM P-R Int : 130 ms QRS Dur : 074 ms QT Int : 366 ms P-R-T Axes : 014 005 021 degrees QTc Int : 422 ms NORMAL SINUS RHYTHM MINIMAL VOLTAGE CRITERIA FOR LVH, MAY BE NORMAL VARIANT BORDERLINE ECG WHEN COMPARED WITH ECG OF 22-JAN-2018 15:13, NO SIGNIFICANT CHANGE WAS FOUND Confirmed by JANE DIEZ MD ([id number]) on 04/27/2018 9:05:25 AM Referred By: Confirmed By:JANE DIEZ MD
== END 2018-04-26 22:22 | disposition home or self-care (01) ==
LOC: JER 13:55
DX: R10.32 Left lower quadrant pain (principal); C76.0 Malignant neoplasm of head, face and neck; C79.9 Secondary malignant neoplasm of unspecified site; Z92.21 Personal history of antineoplastic chemotherapy
CPT/HCPCS: 36415; 71045-TC-FY; 74177-TC; 80053; 83605; 84703; 85025; 85610; 86850; 86900; 86901; 87070; 87186; 87205; 93005; 93010; 99282-25

== ENCOUNTER 2018-05-13 07:23 | Day surgery (SDC) | payer OTHER ==
[2018-05-10 12:39] VITALS: BMI 32.5
[2018-05-13] MEDS ORDERED: PROPOFOL 20 ML ONE ×2 (09:55)
[2018-05-13] MEDS ORDERED: fentaNYL CITRATE 250 MCG/5 ML VIAL ONE (09:55)
[2018-05-13] MEDS ORDERED: MIDAZOLAM HCL 2 MG/2 ML SINGLE DOSE VIAL ONE (09:55)
[2018-05-13] MEDS ORDERED: ROCURONIUM BROMIDE 50 MG/5 ML VIAL ONE (09:55)
--- NOTE | 2018-05-13 10:16 | HP ---
History & Physical Update - History History: No Change (from H&P 05/01/18) Currently as noted:: 37yo F with skin-level stenosis of colostomy - Physical Physical: No Change Currently as noted:: stoma small but patent, nontender abdomen, no hernia - Assessment Assessment: No Change Currently as noted:: colostomy stenosis at skin-level - Plan Plan: No Change Currently as noted:: for local stoma revision today
[2018-05-13] MEDS ORDERED: CEFOXITIN SODIUM 2 GM IVPB ONE (10:20)
[2018-05-13] MEDS ORDERED: BUPIVACAINE HCL/PF 0.5% (5MG/ML) 10 ML VIAL ONE (10:21)
[2018-05-13] MEDS ORDERED: cefOXitin SODIUM 2 GM VIAL (RESTRICTED TO ID) IVPB ONE (11:06)
[2018-05-13] MEDS ORDERED: IBUPROFEN 800 MG/8 ML IJ IVPB PRN (11:34)
[2018-05-13] MEDS ORDERED: ONDANSETRON 4 MG/2 ML VIAL IVPUSH PRN (11:34)
[2018-05-13] MEDS ORDERED: oxyCODONE HCL 5 MG TABLET PO PRN ×2 (11:34→13:18)
[2018-05-13] MEDS ORDERED: DEXAMETHASONE SOD PHOSPHATE 4 MG/1 ML VIAL ONE (11:44)
[2018-05-13] MEDS ORDERED: LACTATED RINGERS SOLUTION 1,000 ML IV SCH (11:45)
[2018-05-13] MEDS ORDERED: BENZOIN/ALOE VERA/STORAX/TOLU 58 ML BOTTLE ONE (12:10)
[2018-05-13] MEDS ORDERED: NEOSTIGMINE METHYLSULFATE 0.5 MG/ML - 10 ML MDV ONE (12:19)
[2018-05-13] MEDS ORDERED: GLYCOPYRROLATE 0.2 MG/1 ML VIAL ONE (12:19)
[2018-05-13] MEDS ORDERED: IBUPROFEN 800 MG/8 ML IJ IVPB ONE (13:10)
--- NOTE | 2018-05-13 13:44 | OP ---
Operative Note - Note: Operative Date: 05/13/18 Pre-Operative Diagnosis: skin-level stenosis of colostomy Operation: local revision of colostomy/stoma Findings: stenosis of colostomy opening at skin level, fascial level open; new ellipse of skin removed and stoma freed at fascial level with resulting wider fascial opening, distal end excised and rematured in same location; bowel pink and viable, stoma widely patent; 70mm appliance and bag applied Post-Operative Diagnosis: Same as Pre-op Surgeon: Ady Erickson Electronic Train Control Technician: Arnoldo Martínez Anesthesiologist/INVOICE MACHINE OPERATOR: Nikki Schofield Anesthesia: General Specimens Removed: end of colostomy to pathology Estimated Blood Loss (mls): 20 Fluid Volume Replaced (mls): 800 (crystalloid) Operative Report Dictated: Yes
[2018-05-13] MEDS ORDERED: ACETAMINOPHEN 325 MG TABLET (FP) ONE (14:53)
[2018-05-13] MEDS ORDERED: ACETAMINOPHEN 500 MG TABLET (FP) PO SCH (15:00)
[2018-05-13] MEDS ORDERED: ACETAMINOPHEN 325 MG TABLET (FP) PO ONE ×2 (15:00)
[2018-05-13] MEDS ORDERED: SULFAMETHOXAZOLE/TRIMETHOPRIM 800MG/160MG D.S. TABLET PO SCH (18:00)
[2018-05-13] MEDS ORDERED: IBUPROFEN 600 MG TABLET (FP) PO ONE ×2 (18:00→18:01)
[2018-05-13] MEDS ORDERED: IBUPROFEN 600 MG TABLET (FP) PO SCH (18:00)
[2018-05-13] MEDS ORDERED: SULFAMETHOXAZOLE/TRIMETHOPRIM 800MG/160MG D.S. TABLET PO ONE (18:06)
--- NOTE | 2018-05-13 21:45 | OP ---
DATE OF OPERATION: 05/13/2018 PREOPERATIVE DIAGNOSIS: Skin-level stenosis of colostomy. POSTOPERATIVE DIAGNOSIS: Skin-level stenosis of colostomy. PROCEDURE: Local revision of colostomy/stoma. SURGEON: Ady Erickson MD BEADER TENDER: Arnoldo Martínez MD ANESTHESIA: General endotracheal. ESTIMATED BLOOD LOSS: 20 mL FLUIDS: Crystalloid 800 mL. SPECIMEN: End of colostomy to Pathology. FINDINGS: 1. Stenosis of colostomy opening at the skin level with the fascial level open. 2. New ellipse of skin removed and stoma freed at fascial level with resulting wider fascial opening. 3. Distal end excised and re-matured in same location. 4. Bowel pink and viable, stoma widely patent. 5. A 70-mm appliance and bag applied. DISPOSITION: Stable and extubated to PACU. INDICATIONS FOR PROCEDURE: The patient is a 37-year-old female who is 3 months status post partial left colectomy en bloc with left ovary for obstruction, which turned out to be metastatic cervical cancer. She had a colostomy placed at that time, which has since experienced skin-level stenosis from skin and scar closing up over what appeared to be a retracted mucocutaneous junction. This was first noticed a couple of weeks ago when the patient came to the emergency room complaining of pain and irritated skin at the site and was noted to have significant local dermatitis, presumed secondary to skin exposure around the stoma within the appliance bag but also significant stenosis of the skin and scar at that location. She has had her second cycle of chemotherapy including carboplatin, Taxol, and Avastin. At that time, it was only 2 weeks prior. She was then seen in the office the following week for dilation of the stoma under local anesthetic and instructed to attempt to continue dilating with a small fingertip to get her through until the site could be surgically and locally revised. Risks, benefits, and alternatives of local stoma revision were discussed with the patient including, but not limited to, bleeding, infection, hernia, recurrent stenosis in either the fascial or the skin level, retraction of the stoma, wound healing problems, breakdown or dehiscence of the wound, need for further procedures or re-siting of the stoma. It was understood that the alternative of no surgery would mandate continual and serial dilations, but that this would likely ultimately result in continued long-term closing of the stoma, necessitating surgical repair. The patient does desire to proceed with the operation and then signed informed consent in the office, for which she is now brought to the OR. OPERATIVE TECHNIQUE: The patient was brought to the operating room and laid supine on the operating table. Sequential compression devices were applied to bilateral lower extremities. Two grams of cefoxitin were given in the OR as preoperative antibiotic. After induction and intubation by Anesthesia, the patient's stoma bag and base were removed. The area cleansed with gauze and then povidone-iodine scrub sponge. The stomal opening was then closed with a running 3-0 silk suture to avoid spillage on the operative field. The area was then prepped with Betadine and draped in sterile fashion. An ellipse of skin was marked at the site to encompass the suture line and as little additional skin as possible around the existing previous stoma, and this was incised with a scalpel and carried into subcutaneous tissue with electrocautery. Dissection continued into the subcutaneous fat with the cautery and the assistance of the tip of a clamp to help define tissue planes until the bowel wall was identified circumferentially. The mesenteric side of the bowel was identified as being medial, and the dissection continued down to the fascial level where the passed through the fascia. At one point in the lateral side, a fingertip was used to gently create a window between the bowel wall and the fascial opening bluntly, and this was utilized to continue dissection circumferentially around the area of passage, ultimately freeing the stoma from the fascial level all the way around including the mesentery on the medial aspect. Bleeding was controlled throughout the procedure with electrocautery where necessary, and once the stoma had been completely freed from the fascial level, hemostasis was assured both above and below the fascia with electrocautery again as needed. The area was irrigated with saline solution and suctioned clear. No active bleeding or pooling was noted. The fascial opening was noted to be a bit wider than previous, able to admit approximately 4 fingers instead of only two or three, but no attempt was made to narrow this area at this time. As the stoma was now freely movable, it was also noted that the external edge of the ostomy easily reached past the skin level, and a TA 60 stapler was used to transect the distal end of the colostomy approximately 1 cm back from the existing skin edge. This portion of tissue and later the staple line were passed off for pathology specimen. The staple line was then removed with electrocautery, and the edges of the bowel wall were grasped full thickness with Allis clamps at 4 corners. The stoma was then re-matured to the new skin border with interrupted 3-0 Vicryl sutures in the usual fashion with a total of 16 stitches being used circumferentially. Once the stoma maturation was complete, the area was cleansed surrounding the stoma and dried. A fingertip was inserted to ensure easy passage through the fascial level which was widely patent, and a small bed of soft brown stool was visible on the fingertip of the glove, which was then discarded. A 70-mm stoma appliance base was then carefully cut in an eccentric fashion so that the opening just fit the margins of the new stoma. Benzoin was placed on the skin around the edges and the stoma base applied. A bag and clip then were attached, and the remaining Betadine was cleansed from the patient's skin. Counts were correct at the end of the procedure. The patient was then awakened and extubated by Anesthesia. She was moved back to a stretcher and taken to the recovery room in stable condition, having tolerated the procedure well. Dr. Martínez was an essential assistant corporation counsel throughout the procedure, providing retraction and exposure for visualization throughout the entire procedure, and he also assisted with maturation of the stoma. Ady Erickson M.D. [id number]
[2018-05-13] MEDS: IBUPROFEN 600 MG TABLET (FP) PO SCH (22:06)
[2018-05-13] MEDS: ACETAMINOPHEN 500 MG TABLET (FP) PO SCH (22:07)
[2018-05-13] MEDS: SULFAMETHOXAZOLE/TRIMETHOPRIM 800MG/160MG D.S. TABLET PO SCH (22:11)
[2018-05-13] MEDS: oxyCODONE HCL 5 MG TABLET PO PRN (22:19)
[2018-05-14] MEDS: ACETAMINOPHEN 500 MG TABLET (FP) PO SCH ×2 (02:14→10:05)
[2018-05-14] MEDS: IBUPROFEN 600 MG TABLET (FP) PO SCH ×2 (02:14→10:05)
[2018-05-14] MEDS: SULFAMETHOXAZOLE/TRIMETHOPRIM 800MG/160MG D.S. TABLET PO SCH (10:22)
[2018-05-14 10:54] VITALS: BP 108/62; PULSE 75; TEMP 98.5
[2018-05-14] MEDS: oxyCODONE HCL 5 MG TABLET PO PRN (11:03)
--- NOTE | 2018-05-14 11:04 | DS ---
Physical Examination Vital Signs: Vital Signs Temperature 98.5 F 05/14/18 10:54 Pulse Rate 75 05/14/18 10:54 Respiratory Rate 18 05/14/18 10:54 Blood Pressure 108/62 05/14/18 10:54 O2 Sat by Pulse Oximetry (%) 97 05/13/18 20:59 Findings/Remarks: Pt seen and examined in bed. Has been up and ambulating. Voided ok, colostomy with a little gas and small amount of serosanguinous fluid but no stool yet. Tolerating diet, had one oxycodone last night, but does not need pain meds this am - has refused Tylenol or ibuprofen. Pain minimal, only when getting up and manageable. Constitutional: Yes: Well Nourished, No Distress, Calm Eyes: Yes: Conjunctiva Clear, EOM Intact HENT: Yes: Atraumatic, Normocephalic Cardiovascular: Yes: Regular Rate and Rhythm. No: Murmur Respiratory: Yes: Regular, CTA Bilaterally Gastrointestinal: Yes: Normal Bowel Sounds, Soft, Tenderness (mild left lateral upper and lower, but not on digitalization of stoma), Other (colostomy pink, patent, edematous mucosa but easily digitized through skin and fascia without pain; small gas and pink fluid in bag, no stool yet). No: Distention, Hernia ( none appreciated) ...Rectal Exam: Yes: Deferred Renal/: No: CVA Tenderness - Left, CVA Tenderness - Right Musculoskeletal: No: Joint Stiffness, Joint Swelling Extremities: No: Cool, Cyanosis Integumentary: No: Jaundice, Rash Wound/Incision: Yes: Other (colostomy appliance in place - good seal, mucocutaneous border intact) Neurological: Yes: Alert, Oriented Labs: no new labs Microbiology 05/13/18 10:40 Urine Culture - Final Urine - Urine Clean Catch NO GROWTH OBTAINED Discharge Summary Reason For Visit: SKIN-LEVEL COLOSTOMY STENOSIS Current Active Problems Colostomy in place (Acute) Colostomy stenosis (Acute) Cystitis (Acute) Secondary malignancy of descending colon (Acute) Procedures: Principal: local revision of colostomy/stoma in OR (general anesthesia) Hospital Course: 37yo F with metastatic cervical CA s/p partial L colectomy with en bloc resection of L ovary and colostomy 01/23/18, started chemo for 2 cycles of Carbo/ Taxol/Avastin last on 04/11/18, and was seen 2 weeks ago for pain, dermatitis and narrowing at her stoma site. She was dilated under local anesthesia in clinic 05/01 and came in for revision of colostomy for skin-level stenosis in OR yesterday under general anesthesia. Stoma was freed up at skin and fascial level , skin/scar excised and the ostomy rematured at same location. Postop, she has done well, tolerating diet, ambulating and voiding, and pain is minimal requiring no meds since last night. The ostomy is pink, widely patent, and with edematous mucosa, but easily digitized without pain through fascial level. No stool in bag yet, but some liquid and small amount of gas present. No nausea, no fever. She had symptoms of UTI with a positive UA on Sunday preop, and though culture from yesterday is showing no growth, is being treated with Bactrim for presumed UTI. She got one dose of Cefoxitin preop in the OR. She is discharged home with lifting restrictions and Rx for 7d Bactrim, to follow up with PMD Dr. De La Garza, Oncology Dr. Bell, [facility] Onc Dr. Tinajero, and in surgery clinic next week. Time spent on discharge: 35 minutes Condition: Good - Instructions Diet, Activity, Other Instructions: Postoperative instructions: You had a local revision of colostomy/stoma on by Dr. Ady Erickson of [facility]. Activity: Resume your usual activities gradually, but no heavy exertion or lifting for 4-6 weeks. You may shower with your bag IN PLACE after 48 hours. No bath or swimming until the new incision/colostomy edge has healed. When you need to change your colostomy bag appliance base (probably not for at least 5-6 days or more), be careful to cut out the hole ONLY to the edge of the stoma/ skin interface - NO skin should be showing inside the opening. You may use the template given to you after surgery as a guide to help you cut out new bases. Use skin prep on the skin under the base -- you probably don't need any powder at this time. Make sure the edges of the base are pressed down firmly to the skin around the edge of the stoma right up to the edge. Visible stitches will fall away in time. Pain: For pain, you may use and alternate Tylenol (acetaminophen, regular or extra strength) 1-2 pills and/or ibuprofen 200 mg (1-3 pills) every 6 hours each as needed; this means that you can take one OR the other at 3-hour intervals. Do not take more than 4000 mg of acetaminophen in a day. Take medications as prescribed or indicated on the labeling. You have been prescribed an antibiotic to take for urinary tract infection, Bactrim twice daily. underwriting support manager your prescription right away and take all the pills as prescribed, even if you feel better soon. If symptoms persist, Dr. De La Garza can recheck your urine next week. Follow-up: Call Dr. Erickson's office at [phone] to make your postop appointment (Sunday next week as advised). Clinic is held in the [facility] on the first floor of [facility]. Call the office if you have: * increasing pain not responsive to pain medication * fever of 101F or higher * vomiting * unusual or increasing bleeding or drainage from wounds * increasing redness or swelling at wound sites Also, see your primary medical doctor (Dr. De La Garza) within 1-2 weeks. Disposition: HOME - Home Medications Comprehensive Discharge Medication List: Ambulatory Orders Ondansetron HCl [Zofran] 8 mg PO BID PRN 03/24/18 Pantoprazole Sodium [Protonix] 40 mg PO DAILY PRN 03/24/18 Prochlorperazine Maleate [Compazine] 10 mg PO TID PRN 03/24/18 Dexamethasone [Decadron -] 5 mg PO PRN PRN 05/10/18 Acetaminophen [Tylenol .Extra-Strength -] 1,000 mg PO Q6H prn tablet 05/13/18 Ibuprofen [Motrin -] 600 mg PO Q6H prn tablet 05/13/18 Sulfamethoxazole/Trimethoprim [Bactrim DS -] 1 each PO BID #14 tablet 05/13/18
--- NOTE | 2018-05-14 18:18 | PATH ---
Surgical Pathology Report Patient Name: FLORIN LYNN [facility]. Rec. #: [id number] /Age/Gender: 1980 (Age: 37) / F Account: [id number] Location: U SURGICAL Taken: 05/13/2018 Received: 05/13/2018 Reported: 05/14/2018 Physicians: Ady Erickson M.D. Specimen(s) Received END OF COLOSTOMY STOMA Clinical History Colostomy stenosis at skin level Final Diagnosis END OF COLOSTOMY, EXCISION: SEGMENT OF SKIN WITH HYPERKERATOSIS, CHRONIC INFLAMMATION, AND FIBROSIS IN THE DERMIS. ADJACENT SEGMENT OF COLON SHOWING CHRONIC INFLAMMATION AND FIBROSIS IN THE MUCOSA AND SUBMUCOSA. SEPARATE FRAGMENTS OF GRANULATION TISSUE WITH ACUTE INFLAMMATION. Electronically Signed Ingrid Matthews M.D. Gross Description Received in formalin labeled "end of colostomy," is a 2.7 x 1.0 cm bella-brown, elliptical portion of skin with a central os, consistent with a colostomy. The specimen displays an attached 1.5 cm in length portion of bowel. The bowel margin is open. Separately received within the same container is a 5.5 x 1.2 x 0.4 cm staple line with attached soft tissue. Tack Welder sections are submitted in 3 cassettes as follows: 1-section through stoma; 2-bowel margin; 3-soft tissue attached to staple line. 05/13/201805/13/2018
== END 2018-05-14 13:11 | disposition home or self-care (01) ==
LOC: JASU-SURG 07:23 → J8W 20:20 → JASU-SURG 05-14 13:11
PROVIDERS: ATTEND Surgery
PROC: 0WQFXZ2 Repair Abdominal Wall, Stoma, External Approach (ICD-10-PCS; principal; 2018-05-13 10:00)
DX: K94.03 Colostomy malfunction (principal); Y83.3 Surgical operation with formation of external stoma as the cause of abnormal reaction of the patient, or of later complication, without mention of misadventure at the time of the procedure; Y82.8 Other medical devices associated with adverse incidents; Y92.9 Unspecified place or not applicable; Z85.038 Personal history of other malignant neoplasm of large intestine
CPT/HCPCS: 87086; 88304-TC; 94760

== ENCOUNTER 2018-06-05 07:39 | Day surgery (SDC) | payer OTHER ==
[2018-06-05] MEDS ORDERED: SODIUM CHLORIDE 500 ML IV ONE (08:00)
[2018-06-05] MEDS ORDERED: PALONOSETRON HCL 0.25 MG/5 ML VIAL IVPUSH ONE (10:00)
[2018-06-05] MEDS ORDERED: FOSAPREPITANT DIMEGLUMINE 150 MG in SODIUM CHLORIDE 150 ML IVPB ONE (10:00)
[2018-06-05 10:03] LABS: BASO % 0.7 % (0-2.0); EOS % 2.1 % (0-4.5); HEMATOCRIT 36.6 % (32.4-45.2); HEMOGLOBIN 12.1 GM/dL (10.7-15.3); LYMPH % 31.2 % (8-40); MCH 30.9 pg (25.7-33.7); MEAN CELL VOLUME 93.8 fl (80-96); MONO % 6.7 % (3.8-10.2); NEUT % 59.3 % (42.8-82.8); PLATELET COUNT 256 K/MM3 (134-434); RDW 14.5 % (11.6-15.6); WHITE BLOOD COUNT 3.7 K/mm3 (4.0-10.0)
[2018-06-05] MEDS ORDERED: SODIUM CHLORIDE 1,000 ML IV SCH (10:15)
[2018-06-05 10:26] LABS: URINE APPEARANCE CLEAR; URINE BILIRUBIN NEGATIVE (<2.0 mg/dL); URINE COLOR YELLOW; URINE GLUCOSE (UA) NEGATIVE (NEGATIVE); URINE KETONE NEGATIVE (NEGATIVE); URINE LEUK ESTERASE TRACE (NEGATIVE); URINE NITRITE NEGATIVE (NEGATIVE); URINE PROTEIN NEGATIVE (NEGATIVE); URINE UROBILINOGEN NEGATIVE mg/dL (0.2-1.0)
[2018-06-05] MEDS ORDERED: PACLITAXEL IVPB ONE (10:30)
[2018-06-05] MEDS ORDERED: SODIUM CHLORIDE IVPB ONE (10:30)
[2018-06-05 10:31] LABS: CHLORIDE 107 mmol/L (98-107); POTASSIUM 4.4 mmol/L (3.5-5.1); SODIUM 141 mmol/L (136-145)
[2018-06-05 10:42] LABS: EPI CELLS RARE /HPF (FEW); URINE MUCUS FEW
[2018-06-05] MEDS ORDERED: DEXAMETHASONE SOD PHOSPHATE 10 MG/1 ML VIAL ONE (10:43)
[2018-06-05 10:56] LABS: ALBUMIN 3.9 g/dl (3.4-5.0); ALK PHOS 75 U/L (45-117); BILIRUBIN,DIRECT < 0.2 mg/dL (0.0-0.2); BILIRUBIN,TOTAL 0.4 mg/dL (0.2-1); MAGNESIUM 1.7 mg/dL (1.8-2.4); SGOT/AST 15 U/L (15-37); SGPT/ALT 21 U/L (13-61); TOT PROT 7.9 g/dl (6.4-8.2)
[2018-06-05 10:58] LABS: ALK PHOS 73 U/L (45-117); ANION GAP 7 MMOL/L (8-16); BILIRUBIN,TOTAL 0.4 mg/dL (0.2-1); BLOOD UREA NITROGEN 15 mg/dL (7-18); CALCIUM 9.4 mg/dL (8.5-10.1); CO2 27 mmol/L (21-32); CREATININE 0.8 mg/dL (0.55-1.3); GLUCOSE,RANDOM 88 mg/dL (74-106); SGOT/AST 15 U/L (15-37); SGPT/ALT 22 U/L (13-61)
[2018-06-05] MEDS ORDERED: DEXAMETHASONE SOD PHOSPHATE 4 MG/1 ML VIAL IVPB ONE (11:00)
[2018-06-05] MEDS ORDERED: DEXAMETHASONE SOD PHOSPHATE 20 MG/5 ML VIAL IVPB ONE (11:15)
[2018-06-05] MEDS ORDERED: MAGNESIUM OXIDE 400 MG TABLET (FP) PO ONE (12:00)
[2018-06-05] MEDS: DIPHENHYDRAMINE IVPB ONE ×2 (14:20→14:24)
[2018-06-05] MEDS: [UNRECOGNIZED DRUG - OTHER] IVPB ONE ×2 (14:20→14:24)
[2018-06-05] MEDS: RANITIDINE IVPB ONE ×2 (14:20→14:24)
[2018-06-05] MEDS: DEXAMETHASONE IVPB ONE ×2 (14:20→14:24)
[2018-06-05 18:09] VITALS: TEMP 97.8
[2018-06-05] MEDS ORDERED: PORTA CATH FLUSH 10 ML IVPUSH ONE (18:32)
[2018-06-05 20:22] VITALS: BP 113/73; PULSE 73
== END 2018-06-05 22:11 | disposition home or self-care (01) ==
LOC: JONCCHEMO 07:39 → J7W 10:34 → JONCCHEMO 22:11
PROVIDERS: ATTEND Internal Medicine Hematology & Oncology
PROC: 3E0 Administration, Physiological Systems and Anatomical Regions, Introduction (ICD-10-PCS; principal; 2018-06-05)
DX: Z51.11 Encounter for antineoplastic chemotherapy (principal); C53.9 Malignant neoplasm of cervix uteri, unspecified; C79.9 Secondary malignant neoplasm of unspecified site
CPT/HCPCS: 36415; 80053; 80076; 81003; 81015; 83735; 85025; 87086; 96361; 96367; 96375; 96413; 96415; 96417; J1100; J2469; J7030

== ENCOUNTER 2018-06-06 07:32 | Day surgery (SDC) | payer OTHER ==
[2018-06-06] MEDS ORDERED: PEGFILGRASTIM 6 MG/0.6 ML DISP.SYRIN SQ ONE (10:00)
[2018-06-06 16:47] VITALS: BP 120/60; PULSE 72; TEMP 96.1
== END 2018-06-06 14:10 | disposition home or self-care (01) ==
LOC: JONCCHEMO 07:32 → J7W 11:15 → JONCCHEMO 14:10
PROVIDERS: ATTEND Internal Medicine Hematology & Oncology
PROC: 3E013GC Introduction of Other Therapeutic Substance into Subcutaneous Tissue, Percutaneous Approach (ICD-10-PCS; principal; 2018-06-06)
DX: C53.9 Malignant neoplasm of cervix uteri, unspecified (principal); C79.9 Secondary malignant neoplasm of unspecified site; Z76.89 Persons encountering health services in other specified circumstances
CPT/HCPCS: 96372; J2505

== ENCOUNTER 2018-06-26 07:39 | Day surgery (SDC) | payer OTHER ==
[2018-06-26] MEDS ORDERED: SODIUM CHLORIDE 500 ML IV ONE (09:00)
[2018-06-26 09:55] LABS: BASO % 0.2 % (0-2.0); EOS % 0.1 % (0-4.5); HEMATOCRIT 36.7 % (32.4-45.2); HEMOGLOBIN 11.8 GM/dL (10.7-15.3); LYMPH % 12.8 % (8-40); MCH 29.9 pg (25.7-33.7); MCHC 32.2 g/dl (32.0-36.0); MEAN CELL VOLUME 92.9 fl (80-96); MEAN PLT VOLUME 8.4 fl (7.5-11.1); MONO % 2.7 % (3.8-10.2); NEUT % 84.2 % (42.8-82.8); PLATELET COUNT 326 K/MM3 (134-434); RBC 3.95 M/mm3 (3.60-5.2); RDW 14.4 % (11.6-15.6)
[2018-06-26] MEDS ORDERED: DIPHENHYDRAMINE IVPB ONE (10:00)
[2018-06-26] MEDS ORDERED: [UNRECOGNIZED DRUG - OTHER] IVPB ONE (10:00)
[2018-06-26] MEDS ORDERED: FOSAPREPITANT DIMEGLUMINE 150 MG in SODIUM CHLORIDE 150 ML IVPB ONE (10:00)
[2018-06-26] MEDS ORDERED: DEXAMETHASONE IVPB ONE (10:00)
[2018-06-26] MEDS ORDERED: RANITIDINE IVPB ONE (10:00)
[2018-06-26] MEDS ORDERED: PALONOSETRON HCL 0.25 MG/5 ML VIAL IVPUSH ONE (10:00)
[2018-06-26 10:21] LABS: ALBUMIN 3.9 g/dl (3.4-5.0); ALK PHOS 88 U/L (45-117); ANION GAP 4 MMOL/L (8-16); BILIRUBIN,TOTAL 0.3 mg/dL (0.2-1); BLOOD UREA NITROGEN 15 mg/dL (7-18); CALCIUM 9.7 mg/dL (8.5-10.1); CHLORIDE 105 mmol/L (98-107); CO2 29 mmol/L (21-32); CREATININE 0.8 mg/dL (0.55-1.3); GLUCOSE,RANDOM 110 mg/dL (74-106); POTASSIUM 4.2 mmol/L (3.5-5.1); SGOT/AST 19 U/L (15-37); SGPT/ALT 24 U/L (13-61); SODIUM 138 mmol/L (136-145); TOT PROT 8.2 g/dl (6.4-8.2)
[2018-06-26 10:26] LABS: ALBUMIN 3.9 g/dl (3.4-5.0); BILIRUBIN,DIRECT 0.1 mg/dL (0.0-0.2); BILIRUBIN,TOTAL 0.3 mg/dL (0.2-1); MAGNESIUM 1.9 mg/dL (1.8-2.4); TOT PROT 8.2 g/dl (6.4-8.2)
[2018-06-26] MEDS ORDERED: PACLITAXEL IVPB ONE (10:30)
[2018-06-26] MEDS ORDERED: SODIUM CHLORIDE IVPB ONE (10:30)
[2018-06-26] MEDS ORDERED: DEXAMETHASONE SOD PHOSPHATE 4 MG/1 ML VIAL IVPB ONE (10:43)
[2018-06-26] MEDS ORDERED: SODIUM CHLORIDE 500 ML IV SCH ×2 (10:45→17:30)
[2018-06-26] MEDS ORDERED: PORTA CATH FLUSH 10 ML IVPUSH ONE ×2 (17:59→18:56)
[2018-06-26 18:00] VITALS: TEMP 98
[2018-06-26 18:57] VITALS: BP 120/71; PULSE 80
== END 2018-06-26 18:57 | disposition home or self-care (01) ==
LOC: JONCCHEMO 07:39 → J7W 10:33 → JONCCHEMO 18:57
PROVIDERS: ATTEND Internal Medicine Hematology & Oncology
DX: Z51.11 Encounter for antineoplastic chemotherapy (principal); C53.9 Malignant neoplasm of cervix uteri, unspecified; C79.9 Secondary malignant neoplasm of unspecified site
CPT/HCPCS: 36415; 80053; 80076; 83735; 85025; 96361; 96367; 96375; 96413; 96415; 96417; J1100; J1453; J2469; J7030

== ENCOUNTER 2018-06-27 07:19 | Day surgery (SDC) | payer OTHER ==
[2018-06-27] MEDS ORDERED: PEGFILGRASTIM 6 MG/0.6 ML DISP.SYRIN SQ ONE (10:00)
[2018-06-27 17:01] VITALS: BP 114/68; PULSE 71; TEMP 98.2
== END 2018-06-27 16:25 | disposition home or self-care (01) ==
LOC: JONCCHEMO 07:19 → J7W 16:16 → JONCCHEMO 16:25
PROVIDERS: ATTEND Internal Medicine Hematology & Oncology
PROC: 3E013GC Introduction of Other Therapeutic Substance into Subcutaneous Tissue, Percutaneous Approach (ICD-10-PCS; principal; 2018-06-27)
DX: C53.9 Malignant neoplasm of cervix uteri, unspecified (principal); C79.9 Secondary malignant neoplasm of unspecified site; Z76.89 Persons encountering health services in other specified circumstances
CPT/HCPCS: 96372; J2505

== ENCOUNTER 2018-07-17 07:29 | Day surgery (SDC) | payer OTHER ==
[2018-07-17] MEDS ORDERED: SODIUM CHLORIDE 500 ML IV ONE (08:00)
[2018-07-17] MEDS ORDERED: DEXAMETHASONE INJECTION 10 MG, DIPHENHYDRAMINE 50 MG, RANITIDINE INJECTION 50 MG in SOD... IVPB ONE (08:30)
[2018-07-17] MEDS ORDERED: FOSAPREPITANT DIMEGLUMINE 150 MG in SODIUM CHLORIDE 145 ML IVPB ONE (08:30)
[2018-07-17] MEDS ORDERED: PALONOSETRON HCL 0.25 MG/5 ML VIAL IVPUSH ONE (08:30)
[2018-07-17] MEDS ORDERED: PACLITAXEL IVPB ONE (09:00)
[2018-07-17] MEDS ORDERED: SODIUM CHLORIDE IVPB ONE ×2 (09:00→12:00)
[2018-07-17 09:33] LABS: BASO % 0.4 % (0-2.0); EOS % 0.6 % (0-4.5); HEMATOCRIT 34.9 % (32.4-45.2); HEMOGLOBIN 11.6 GM/dL (10.7-15.3); LYMPH % 22.5 % (8-40); MCH 31.2 pg (25.7-33.7); MCHC 33.1 g/dl (32.0-36.0); MEAN CELL VOLUME 94.1 fl (80-96); MEAN PLT VOLUME 8.7 fl (7.5-11.1); MONO % 8.2 % (3.8-10.2); NEUT % 68.3 % (42.8-82.8); PLATELET COUNT 292 K/MM3 (134-434); RBC 3.71 M/mm3 (3.60-5.2); RDW 14.9 % (11.6-15.6); WHITE BLOOD COUNT 4.2 K/mm3 (4.0-10.0)
[2018-07-17 10:05] LABS: ALBUMIN 4.2 g/dl (3.4-5.0); ALK PHOS 90 U/L (45-117); ANION GAP 6 MMOL/L (8-16); BILIRUBIN,DIRECT 0.1 mg/dL (0.0-0.2); BILIRUBIN,TOTAL 0.3 mg/dL (0.2-1); BLOOD UREA NITROGEN 19 mg/dL (7-18); CALCIUM 9.3 mg/dL (8.5-10.1); CHLORIDE 108 mmol/L (98-107); CO2 29 mmol/L (21-32); CREATININE 0.8 mg/dL (0.55-1.3); GLUCOSE,RANDOM 74 mg/dL (74-106); MAGNESIUM 1.7 mg/dL (1.8-2.4); SGOT/AST 14 U/L (15-37); SGPT/ALT 24 U/L (13-61); SODIUM 142 mmol/L (136-145); TOT PROT 8.2 g/dl (6.4-8.2)
[2018-07-17] MEDS ORDERED: DEXAMETHASONE SOD PHOSPHATE 20 MG/5 ML VIAL IVPB ONE (10:13)
[2018-07-17] MEDS ORDERED: MAGNESIUM SULF 50% (8.12 MEQ/2 ML-1 GM VIAL) IVPB ONE (10:16)
[2018-07-17] MEDS: DEXAMETHASONE SOD PHOSPHATE 10 MG/1 ML VIAL IVPB ONE ×2 (10:28→11:50)
[2018-07-17 10:57] VITALS: TEMP 97.3
[2018-07-17] MEDS ORDERED: CARBOPLATIN IVPB ONE (12:00)
[2018-07-17] MEDS ORDERED: PORTA CATH FLUSH 10 ML IVPUSH ONE (16:01)
[2018-07-17 17:52] VITALS: BP 116/62; PULSE 80
== END 2018-07-17 17:54 | disposition home or self-care (01) ==
LOC: JONCCHEMO 07:29 → J7W 10:15 → JONCCHEMO 17:54
PROVIDERS: ATTEND Internal Medicine Hematology & Oncology
DX: Z51.11 Encounter for antineoplastic chemotherapy (principal); C53.9 Malignant neoplasm of cervix uteri, unspecified; C79.9 Secondary malignant neoplasm of unspecified site
CPT/HCPCS: 36415; 80053; 80076; 83735; 84703; 85025; 96361; 96366; 96367; 96375; 96413; 96415; 96417; J1100; J1453; J2469

== ENCOUNTER 2018-07-18 07:29 | Day surgery (SDC) | payer OTHER ==
[2018-07-18] MEDS ORDERED: PEGFILGRASTIM 6 MG/0.6 ML DISP.SYRIN SQ ONE (10:00)
[2018-07-18 15:26] VITALS: BP 132/68; PULSE 80; TEMP 98.2
== END 2018-07-18 15:20 | disposition home or self-care (01) ==
LOC: JONCCHEMO 07:29 → J7W 15:11 → JONCCHEMO 15:20
PROVIDERS: ATTEND Internal Medicine Hematology & Oncology
PROC: 3E013GC Introduction of Other Therapeutic Substance into Subcutaneous Tissue, Percutaneous Approach (ICD-10-PCS; principal; 2018-07-18)
DX: C53.9 Malignant neoplasm of cervix uteri, unspecified (principal); Z76.89 Persons encountering health services in other specified circumstances
CPT/HCPCS: 96372; J2505

== ENCOUNTER 2018-07-27 09:35 | Day surgery (SDC) | payer OTHER ==
[2018-07-27] MEDS ORDERED: SODIUM CHLORIDE 1,000 ML IV ONE (10:00)
[2018-07-27 11:20] VITALS: TEMP 98.5
[2018-07-27 13:41] VITALS: BP 124/71; PULSE 83
== END 2018-07-27 13:42 | disposition home or self-care (01) ==
LOC: JONCNONCHE 09:35 → J7W 09:36 → JONCNONCHE 13:42
PROVIDERS: ATTEND Internal Medicine Hematology & Oncology
PROC: 3E0437Z Introduction of Electrolytic and Water Balance Substance into Central Vein, Percutaneous Approach (ICD-10-PCS; principal; 2018-07-27)
DX: C53.9 Malignant neoplasm of cervix uteri, unspecified (principal); Z76.89 Persons encountering health services in other specified circumstances
CPT/HCPCS: 96360; 96361; J7030

== ENCOUNTER 2018-08-07 07:41 | Day surgery (SDC) | payer OTHER ==
[2018-08-07] MEDS ORDERED: SODIUM CHLORIDE 500 ML IV ONE ×2 (08:00→12:00)
[2018-08-07] MEDS ORDERED: [UNRECOGNIZED DRUG - OTHER] IVPB ONE (10:00)
[2018-08-07] MEDS ORDERED: DIPHENHYDRAMINE IVPB ONE (10:00)
[2018-08-07] MEDS ORDERED: DEXAMETHASONE IVPB ONE (10:00)
[2018-08-07] MEDS ORDERED: RANITIDINE IVPB ONE (10:00)
[2018-08-07] MEDS ORDERED: FOSAPREPITANT DIMEGLUMINE 150 MG in SODIUM CHLORIDE 150 ML IVPB ONE (10:00)
[2018-08-07] MEDS ORDERED: PALONOSETRON HCL 0.25 MG/5 ML VIAL IVPUSH ONE (10:00)
[2018-08-07 10:24] LABS: BASO % 0.1 % (0-2.0); HEMATOCRIT 35.2 % (32.4-45.2); HEMOGLOBIN 11.4 GM/dL (10.7-15.3); LYMPH % 4.9 % (8-40); MCHC 32.4 g/dl (32.0-36.0); MEAN CELL VOLUME 95.7 fl (80-96); MEAN PLT VOLUME 8.1 fl (7.5-11.1); MONO % 1.2 % (3.8-10.2); NEUT % 93.8 % (42.8-82.8); PLATELET COUNT 298 K/MM3 (134-434); RBC 3.68 M/mm3 (3.60-5.2); RDW 15.7 % (11.6-15.6); WHITE BLOOD COUNT 8.1 K/mm3 (4.0-10.0)
[2018-08-07] MEDS ORDERED: SODIUM CHLORIDE IVPB ONE ×2 (10:30→12:30)
[2018-08-07] MEDS ORDERED: PACLITAXEL IVPB ONE ×2 (10:30→12:30)
[2018-08-07 10:56] LABS: ALBUMIN 3.9 g/dl (3.4-5.0); ALK PHOS 97 U/L (45-117); ANION GAP 7 MMOL/L (8-16); BILIRUBIN,DIRECT 0.1 mg/dL (0.0-0.2); BILIRUBIN,TOTAL 0.2 mg/dL (0.2-1); BLOOD UREA NITROGEN 16 mg/dL (7-18); CALCIUM 9.2 mg/dL (8.5-10.1); CHLORIDE 109 mmol/L (98-107); CO2 25 mmol/L (21-32); CREATININE 0.8 mg/dL (0.55-1.3); GLUCOSE,RANDOM 126 mg/dL (74-106); MAGNESIUM 1.8 mg/dL (1.8-2.4); SGOT/AST 12 U/L (15-37); SGPT/ALT 23 U/L (13-61); SODIUM 141 mmol/L (136-145); TOT PROT 7.9 g/dl (6.4-8.2)
[2018-08-07] MEDS ORDERED: DEXAMETHASONE SOD PHOSPHATE 4 MG/1 ML VIAL IVPB ONE (11:57)
[2018-08-07 12:23] LABS: ANISOCYTOSIS 1+; MACROCYTOSIS 1+; PLATELET ESTIMATE NORMAL; TEAR DROP CELLS 1+
[2018-08-07] MEDS ORDERED: PORTA CATH FLUSH 10 ML IVPUSH ONE (17:14)
[2018-08-07 18:41] VITALS: BP 123/69; PULSE 77; TEMP 98.3
== END 2018-08-07 18:42 | disposition home or self-care (01) ==
LOC: JONCCHEMO 07:41 → J7W 11:25 → JONCCHEMO 18:42
PROVIDERS: ATTEND Internal Medicine Hematology & Oncology
DX: Z51.11 Encounter for antineoplastic chemotherapy (principal); C53.9 Malignant neoplasm of cervix uteri, unspecified
CPT/HCPCS: 36415; 80053; 80076; 83735; 85025; 96367; 96375; 96413; 96415; 96417; J1100; J1453; J2469; J7030

== ENCOUNTER 2018-08-09 07:39 | Day surgery (SDC) | payer OTHER ==
[2018-08-09] MEDS ORDERED: PEGFILGRASTIM 6 MG/0.6 ML DISP.SYRIN SQ ONE (09:45)
[2018-08-09 15:55] VITALS: BP 125/71; PULSE 70; TEMP 97.9
== END 2018-08-09 09:50 | disposition home or self-care (01) ==
LOC: JONCCHEMO 07:39 → J7W 08:55 → JONCCHEMO 09:50
PROVIDERS: ATTEND Internal Medicine Hematology & Oncology
PROC: 3E013GC Introduction of Other Therapeutic Substance into Subcutaneous Tissue, Percutaneous Approach (ICD-10-PCS; principal; 2018-08-09)
DX: C53.9 Malignant neoplasm of cervix uteri, unspecified (principal); Z76.89 Persons encountering health services in other specified circumstances
CPT/HCPCS: 96372; J2505

== ENCOUNTER 2019-01-21 13:29 | Emergency (ER) | payer OTHER ==
[2019-01-21 13:42] VITALS: TEMP 98.2; BMI 36.6
--- NOTE | 2019-01-21 14:04 | PDOC ---
History of Present Illness - General Chief Complaint: Cold Symptoms Stated Complaint: SOB Time Seen by Provider: 01/21/19 13:59 - History of Present Illness Initial Comments: 01/21/19 14:02 38-year-old female with a past medical history of colon and cervical cancer. She just finished a recent treatment of chemotherapy for colon cancer she has a colostomy bag. Presents for evaluation of 2 days of pleuritic chest pain and cough Past History - Past Medical History Allergies/Adverse Reactions: Allergies Allergy/AdvReac Type Severity Reaction Status Date / Time No Known Allergies Allergy Verified 01/21/19 13:37 Home Medications: Ambulatory Orders Phentermine/Topiramate [Qsymia 11.25 mg-69 mg Capsule] 1 each PO ASDIR 01/21/19 Anemia: Yes Asthma: No Cancer: Yes (cervical metastatic to L ovary,tube and colon) Cardiac Disorders: No CVA: No COPD: No CHF: No Dementia: No Diabetes: No GI Disorders: No Disorders: No HTN: No Hypercholesterolemia: No Liver Disease: No Seizures: No Thyroid Disease: No - Surgical History Abdominal Surgery: Yes (CALIXTO) Appendectomy: No Cardiac Surgery: No Cholecystectomy: No GI Surgery: Yes (COLOSTOMY) Lung Surgery: No Neurologic Surgery: No Orthopedic Surgery: No - Reproductive History Cervical CA: Yes - Immunization History Immunization Up to Date: Yes - Suicide/Smoking/Psychosocial Hx Smoking History: Never smoked Have you smoked in the past 12 months: No Information on smoking cessation initiated: No Hx Alcohol Use: No Drug/Substance Use Hx: No Substance Use Type: None Hx Substance Use Treatment: No Review of Systems - Review of Systems Constitutional: No: Fever HEENTM: Yes: Throat Pain Cardiac (ROS): Yes: Chest Pain *Physical Exam - Vital Signs Last Vital Signs Temp Pulse Resp BP Pulse Ox 98.2 F 95 H 16 125/72 100 01/21/19 13:30 01/21/19 13:30 01/21/19 13:30 01/21/19 13:30 01/21/19 13:30 - Physical Exam Comments: 01/21/19 14:02 HEAD: NC/AT EYES: Conjuntiva clear Ears: Canals and TM's normal NOSE: No d/c THROAT: Moist mucous membrances, oral pharanx clear, uvula midline NECK: Supple without adenopathy CARDIAC: S1 S2 LUNGS: CTA Full and Equal breath sounds ABDOMEN: Soft NT ND MS: Full ROM in all joints without edema NEUROLOGIC: No gross sensory or motor deficits, NVID SKIN: Normal color and temperature no lesions or rashes Medical Decision Making - Medical Decision Making Patient obviously uncomfortable with inspiration. I will drop luminary lab work and transferred to the main emergency room. She is in need of a CTA of her chest. *DC/Admit/Observation/Transfer Diagnosis at time of Disposition: Chest pain - Referrals - Patient Instructions - Post Discharge Activity
[2019-01-21 14:26] LABS: BASO % 0.3 % (0-2.0); EOS % 0.6 % (0-4.5); HEMATOCRIT 36.6 % (32.4-45.2); HEMOGLOBIN 12.3 GM/dL (10.7-15.3); LYMPH % 25.2 % (8-40); MCH 30.6 pg (25.7-33.7); MCHC 33.6 g/dl (32.0-36.0); MEAN CELL VOLUME 91.1 fl (80-96); MEAN PLT VOLUME 8.1 fl (7.5-11.1); MONO % 6.3 % (3.8-10.2); NEUT % 67.6 % (42.8-82.8); PLATELET COUNT 283 K/MM3 (134-434); RBC 4.02 M/mm3 (3.60-5.2); RDW 13.4 % (11.6-15.6); WHITE BLOOD COUNT 5.7 K/mm3 (4.0-10.0)
--- NOTE | 2019-01-21 14:30 | PDOC ---
History of Present Illness - General Chief Complaint: Cold Symptoms Stated Complaint: SOB Time Seen by Provider: 01/21/19 13:59 History Source: Patient Exam Limitations: No Limitations - History of Present Illness Initial Comments: 01/21/19 14:29 38 year old woman with h/o cervical cancer with mets to her left ovary/ Fallopian tube/colon, s/p CALIXTO, and hemicolectomy w/colostomy bag (with Dr. Erickson) , currently on chemotherapy Past History - Past Medical History Allergies/Adverse Reactions: Allergies Allergy/AdvReac Type Severity Reaction Status Date / Time No Known Allergies Allergy Verified 01/21/19 13:37 Home Medications: Ambulatory Orders Phentermine/Topiramate [Qsymia 11.25 mg-69 mg Capsule] 1 each PO ASDIR 01/21/19 Anemia: Yes Asthma: No Cancer: Yes (cervical metastatic to L ovary,tube and colon) Cardiac Disorders: No CVA: No COPD: No CHF: No Dementia: No Diabetes: No GI Disorders: No Disorders: No HTN: No Hypercholesterolemia: No Liver Disease: No Seizures: No Thyroid Disease: No - Surgical History Abdominal Surgery: Yes (CALIXTO) Appendectomy: No Cardiac Surgery: No Cholecystectomy: No GI Surgery: Yes (COLOSTOMY) Lung Surgery: No Neurologic Surgery: No Orthopedic Surgery: No - Reproductive History Cervical CA: Yes - Immunization History Immunization Up to Date: Yes - Suicide/Smoking/Psychosocial Hx Smoking History: Never smoked Have you smoked in the past 12 months: No Information on smoking cessation initiated: No Hx Alcohol Use: No Drug/Substance Use Hx: No Substance Use Type: None Hx Substance Use Treatment: No *Physical Exam - Vital Signs Last Vital Signs Temp Pulse Resp BP Pulse Ox 98.2 F 95 H 16 125/72 100 01/21/19 13:30 01/21/19 13:30 01/21/19 13:30 01/21/19 13:30 01/21/19 13:30 ED Treatment Course - LABORATORY CBC & Chemistry Diagram: 01/21/19 14:13 01/21/19 14:13 *DC/Admit/Observation/Transfer Diagnosis at time of Disposition: Chest pain - Referrals Referrals: Ernesto De La Garza MD [Primary Care Provider] - - Patient Instructions - Post Discharge Activity
--- NOTE | 2019-01-21 14:46 | PDOC ---
*Physical Exam - Vital Signs Last Vital Signs Temp Pulse Resp BP Pulse Ox 98.2 F 95 H 16 125/72 100 01/21/19 13:30 01/21/19 13:30 01/21/19 13:30 01/21/19 13:30 01/21/19 13:30 ED Treatment Course - LABORATORY CBC & Chemistry Diagram: 01/21/19 14:13 01/21/19 14:13 - ADDITIONAL ORDERS Additional order review: 01/21/19 14:13 RBC 4.02 MCV 91.1 MCHC 33.6 RDW 13.4 D MPV 8.1 Neutrophils % 67.6 Lymphocytes % 25.2 D Monocytes % 6.3 Eosinophils % 0.6 Basophils % 0.3 - RADIOLOGY Radiology Studies Ordered: Category Date Time Status CHEST CTA [CT] Stat CT Scan 01/21/19 14:31 Ordered Medical Decision Making - Medical Decision Making 01/21/19 14:33 38 year old woman with h/o cervical cancer with mets to her left ovary/ Fallopian tube/colon, s/p CALIXTO, and hemicolectomy w/colostomy bag (with Dr. Erickson) , recently completed chemotherapy in July 2018 who presents with 2 days if shortness of breath and dry cough associated with central nonradiating chest pain that worsens with deep breathing. The patient denies fever or productive cough. 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 She has recently travelled to the [place] for 4 days approx 3 weeks ago. She reports that she has never felt such symptoms of chest pain before. She denies abdominal pain and notes no changes with her colostomy bag,. Denies any rashes. No other complaints at bedside. ED Course ddx ibnlt: PE vs ACS vs arrythmia vs met consider uri vs influenza vs pna cbc, cmp, trop, ekg, cxr, cta ua, upreg 01/21/19 15:55 labwork unremarkable pending ua 01/21/19 15:56 EKG: normal sinus rhythm HR 86, no interval abnormalities, narrow QRS, ST and T wave segments and morphology normal. 01/21/19 16:01 CXR: midline airway, slightly increased vascular markings on L lower lobe, no blunting of costophrenic angle, no cardiomegaly, as read by this functional tester typewriters, pending final report CTA negative will treat with dextromethoprhan and tylenol 975 D/C for f/u with PCP 01/21/19 19:10 *DC/Admit/Observation/Transfer Diagnosis at time of Disposition: Atypical chest pain, Cough - Discharge Dispostion Disposition: HOME Condition at time of disposition: Stable Decision to Admit order: No - Referrals Referrals: Ernesto De La Garza MD [Primary Care Provider] - - Patient Instructions Printed Discharge Instructions: DI for Common Cold, DI for Cough -- Adult Additional Instructions: You were seen in the ED for complaints of cough w/ chest pain. In the ED you were evaluated with labwork and imaging. Your results were largely unremarkable. There does not appear to be an acute need for immediate hospitalization. You are advised to follow up with your Primary Care Physician within 1 week. You were given a prescription for cough medication and extra strength Tylenol. Please take all medication as directed. Return to the ED immediately if you experience worsening chest pain, shortness of breath, nausea, vomiting, sweating or fevers. - Post Discharge Activity
[2019-01-21 14:54] LABS: ALBUMIN 4.3 g/dl (3.4-5.0); ALK PHOS 92 U/L (45-117); ANION GAP 7 MMOL/L (8-16); BILIRUBIN,TOTAL 0.3 mg/dL (0.2-1); BLOOD UREA NITROGEN 15 mg/dL (7-18); CALCIUM 9.6 mg/dL (8.5-10.1); CHLORIDE 104 mmol/L (98-107); CO2 28 mmol/L (21-32); CREATININE 0.9 mg/dL (0.55-1.3); GLUCOSE,RANDOM 97 mg/dL (74-106); POTASSIUM 3.5 mmol/L (3.5-5.1); SGOT/AST 20 U/L (15-37); SGPT/ALT 26 U/L (13-61); SODIUM 139 mmol/L (136-145); TOT PROT 8.3 g/dl (6.4-8.2)
--- NOTE | 2019-01-21 15:41 | PDOC ---
Documentation entered by Roxanna Lara SCRIBE, acting as scribe for Micha Martinez MD. Micha Martinez MD: This documentation has been prepared by the Jane carrasquillo Renju, SCRIBE, under my direction and personally reviewed by me in its entirety. I confirm that the documentation accurately reflects all work, treatment, procedures, and medical decision making performed by me. Attending Attestation - Resident Resident Name: Janett Lanza - ED Attending Attestation I have performed the following: I have examined & evaluated the patient, The case was reviewed & discussed with the resident, I agree w/resident's findings & plan, Exceptions are as noted - HPI HPI: 01/21/19 15:36 38F h/o cervical cancer with metsasis to her left ovary/Fallopian tube/colon, s/ p CALIXTO, and hemicolectomy w/colostomy bag (with Dr. Erickson), and recent chemotherapy (07/2018) who presents to the ED for evaluation of a 2 day history of non radiating pleuritic chest pain and SOB a/w dry non productive cough. Pt endorses recent travel to the [place] 3 weeks ago. She has recently travelled to the [place] for 4 days approx 3 weeks ago. Denies abdominal pain, fever, nausea, vomiting, diaphoresis, and changes with her colostomy bag. - Physicial Exam PE: 01/21/19 15:36 "GENERAL: Awake, alert, and fully oriented, in no acute distress. HEAD: No signs of trauma EYES: PERRLA, EOMI, sclera anicteric, conjunctiva clear ENT: Auricles normal inspection, hearing grossly normal, nares patent, oropharynx clear without exudates. Moist mucosa NECK: Nontender, no stepoffs, Normal ROM, supple, no lymphadenopathy, JVD, or masses LUNGS: Breath sounds equal, clear to auscultation bilaterally. No wheezes, and no crackles HEART: Regular rate and rhythm, normal S1 and S2, no murmurs, rubs or gallops ABDOMEN: Soft, nontender, normoactive bowel sounds. No guarding, no rebound. No masses EXTREMITIES: Normal range of motion, no edema. No clubbing or cyanosis. No cords, erythema, or tenderness NEUROLOGICAL: Cranial nerves II through XII intact. 5/5 strength and sensation in all extremities, Normal speech, normal gait, normal cerebellar function SKIN: Warm, Dry, normal turgor, no rashes or lesions noted. - Medical Decision Making 01/21/19 15:36 38 F with pleuritic chest pain. high risk for PE. - Labs, trop - CXR - CTA chest r/o PE Pt signed out to oncoming attending at 5PM, pending CTA and re-evaluation
[2019-01-21 19:32] VITALS: BP 123/73; PULSE 96
--- NOTE | 2019-01-22 08:28 | EKG ---
Test Reason : Blood Pressure : / mmHG Vent. Rate : 086 BPM Atrial Rate : 086 BPM P-R Int : 142 ms QRS Dur : 076 ms QT Int : 384 ms P-R-T Axes : 035 -02 027 degrees QTc Int : 459 ms NORMAL SINUS RHYTHM VOLTAGE CRITERIA FOR LEFT VENTRICULAR HYPERTROPHY ABNORMAL ECG WHEN COMPARED WITH ECG OF 26-MAY-2018 09:05, NO SIGNIFICANT CHANGE WAS FOUND Confirmed by ANDRÉS BRAVO, SUE ([id number]) on 01/22/2019 8:28:19 AM Referred By: Confirmed By:SUE BOWEN MD
== END 2019-01-21 19:32 | disposition home or self-care (01) ==
LOC: JER 13:29
DX: R07.89 Other chest pain (principal); R05 Cough; Z85.41 Personal history of malignant neoplasm of cervix uteri; Z85.43 Personal history of malignant neoplasm of ovary; Z85.038 Personal history of other malignant neoplasm of large intestine; Z85.44 Personal history of malignant neoplasm of other female genital organs; Z93.3 Colostomy status; Z90.710 Acquired absence of both cervix and uterus; Z90.79 Acquired absence of other genital organ(s); Z90.722 Acquired absence of ovaries, bilateral
CPT/HCPCS: 36415; 71046-TC-FY; 71275-TC; 80053; 84484; 84703; 85025; 87804; 93005; 93010; 99282-25

== ENCOUNTER 2019-01-25 15:08 | Emergency (ER) | payer OTHER ==
[2019-01-25 15:26] VITALS: BP 125/72; PULSE 88; TEMP 98.4; BMI 36.6
[2019-01-25] MEDS ORDERED: predniSONE 20 MG TABLET (UD) PO ONE (15:51)
[2019-01-25] MEDS ORDERED: ALBUTEROL SO4 2.5/IPRATROPIUM 0.5 INH SOL 3 ML VIAL.NEB. NEB ONE ×4 (15:51→16:30)
[2019-01-25] MEDS ORDERED: predniSONE 20 MG TABLET (UD) ONE (15:53)
--- NOTE | 2019-01-25 15:57 | PDOC ---
History of Present Illness - General Chief Complaint: Cold Symptoms Stated Complaint: COUGHING\ COLD SYMPTOMS Time Seen by Provider: 01/25/19 15:31 History Source: Patient Exam Limitations: No Limitations - History of Present Illness Initial Comments: 01/25/19 15:58 Days patient came for evaluation of worsening cough, fevers, chills over the past few days. Daughter was with same last week, patient feels has same Timing/Duration: reports: getting worse Severity: reports: mild, moderate Associated Symptoms: reports: chest pain/soreness, cough, facial pain, fever/ chills, nasal congestion, nasal drainage, sore throat Past History - Travel Traveled outside of the country in the last 30 days: No Close contact w/someone who was outside of country & ill: No - Past Medical History Allergies/Adverse Reactions: Allergies Allergy/AdvReac Type Severity Reaction Status Date / Time No Known Allergies Allergy Verified 01/25/19 15:22 Home Medications: Ambulatory Orders Albuterol Sulfate Inhaler - [Ventolin HFA Inhaler -] 1 - 2 inh PO Q4H #1 inhaler 01/25/19 Azithromycin [Zithromax -] 250 mg PO UTDICT #6 tab 01/25/19 predniSONE [Deltasone -] 20 mg PO BID #8 tablet 01/25/19 Anemia: Yes Asthma: No Cancer: Yes (cervical metastatic to L ovary,tube and colon) Cardiac Disorders: No CVA: No COPD: No CHF: No Dementia: No Diabetes: No GI Disorders: No Disorders: No HTN: No Hypercholesterolemia: No Liver Disease: No Seizures: No Thyroid Disease: No - Surgical History Abdominal Surgery: Yes (CALIXTO) Appendectomy: No Cardiac Surgery: No Cholecystectomy: No GI Surgery: Yes (COLOSTOMY) Lung Surgery: No Neurologic Surgery: No Orthopedic Surgery: No - Reproductive History Cervical CA: Yes - Immunization History Immunization Up to Date: Yes - Suicide/Smoking/Psychosocial Hx Smoking History: Never smoked Have you smoked in the past 12 months: No Information on smoking cessation initiated: No Hx Alcohol Use: No Drug/Substance Use Hx: No Substance Use Type: None Hx Substance Use Treatment: No Review of Systems - Review of Systems Able to Perform ROS?: Yes Is the patient limited Kiswahili proficient: Yes Constitutional: Yes: Symptoms Reported, See HPI, Fever, Malaise Respiratory: Yes: Symptoms reported, See HPI, Cough, Wheezing Cardiac (ROS): No: Symptoms Reported Musculoskeletal: Yes: Symptoms Reported All Other Systems: Reviewed and Negative *Physical Exam - Vital Signs Last Vital Signs Temp Pulse Resp BP Pulse Ox 98.4 F 88 20 125/72 98 01/25/19 15:22 01/25/19 15:22 01/25/19 15:22 01/25/19 15:22 01/25/19 15:22 - Physical Exam General Appearance: Yes: Nourished, Appropriately Dressed, Apparent Distress, Mild Distress HEENT: positive: JEREMY, TMs Normal, Pharyngeal Erythema, Rhinorrhea. negative: Normal ENT Inspection, Pharynx Normal Neck: positive: Supple, Lymphadenopathy (R), Lymphadenopathy (L). negative: Tender Respiratory/Chest: positive: Rhonchi, Wheezing (coarse insp and exp breathsounds = worse with inspiration). negative: Chest Tender, Lungs Clear, Normal Breath Sounds, Respiratory Distress Gastrointestinal/Abdominal: positive: Normal Bowel Sounds, Soft. negative: Tender Extremity: positive: Normal Capillary Refill, Normal Inspection Integumentary: positive: Normal Color, Dry, Warm Progress Note - Progress Note Progress Note: Patient much improved after 2 DuoNeb's and prednisone. States feels better aeration, no coughing, and ready for discharge. *DC/Admit/Observation/Transfer Diagnosis at time of Disposition: Upper respiratory tract infection Qualifiers: URI type: unspecified URI Qualified Code(s): J06.9 - Acute upper respiratory infection, unspecified - Discharge Dispostion Disposition: HOME Condition at time of disposition: Stable Decision to Admit order: No - Referrals - Patient Instructions Printed Discharge Instructions: DI for Acute Bronchitis Additional Instructions: Rest, drink lots of fluids: Teas, water, soups, Pedialyte Saltwater gargles Steamy showers/seem to face break up mucus Avoid contact with others until fevers and cough resolved Lots of handwashing and good hygiene Continue [id number] medications for symptomatic relief Tylenol or Motrin for fever and pain Continue albuterol inhaler, 2 puffs every 4-6 hours for the next 2 days then as needed for continued cough Prednisone as directed until completed Azithromycin as directed Followup with private physician in one to 2 days Return to emergency department / pediatric hospital for worsened symptoms, fevers, dehydration - Post Discharge Activity Forms/Work/School Notes: Back to Work
== END 2019-01-25 16:56 | disposition home or self-care (01) ==
LOC: JERFT 15:08
DX: J06.9 Acute upper respiratory infection, unspecified (principal)
CPT/HCPCS: 99281-25

== ENCOUNTER 2019-04-09 02:22 | Emergency (ER) | payer OTHER ==
[2019-04-09 03:08] VITALS: BMI 36.6
--- NOTE | 2019-04-09 04:23 | PDOC ---
History of Present Illness - General Chief Complaint: Pain Stated Complaint: ABD PAIN, S/P SURGERY Time Seen by Provider: 04/09/19 04:17 History Source: Patient, Old Records Exam Limitations: No Limitations - History of Present Illness Initial Comments: HPI: 38 y/o female presenting to [facility] ER complaining of worsening abdominal pain for the past two days. Pain radiates across the top of her abdomen without radiation to back or chest. Pt is three days s/p colostomy reversal performed by Dr. Kim at [facility]. Prescribed only Tylenol for pain relief, which has been unsuccessful. Has not attempted to contact surgeon of record. Endorses watery, nonbloody diarrhea. Denies nausea, vomiting, or difficulty taking PO intake. Post op wound is packed wet to dry and changed daily by home health aid. Denies observing purulent discharge, bleeding, or other irregularity at the site. Dressing last changed Sunday. General Surgeon: Dr. Anabell Kim Oncologist: Dr. Starks Medical Hx: - Cervical cancer with mets to ovary and colon - s/p hysterectomy - s/p single oophorectomy - s/p colostomy with Nagy procedure (January [address] Erickson) - s/p colostomy reversal (07 April 2019) Review of Systems: In addition to that documented in the HPI above, the additional ROS was obtained : Constitutional: Denies fevers or chills Head: Denies vision changes ENMT: Denies sore throat CV: Denies chest pain Resp: Denies SOB GI: Endorses diarrhea. Denies vomiting. : Endorses painful urination without hematuria or discharge after francis catheter MSK: Denies recent trauma Skin: Denies new rashes Neuro: Denies new numbness or tingling or weakness Endocrine: Denies polyuria Heme: Denies bleeding or bruising Physical Examination: Constitutional: Well-developed, well-nourished adult female in no acute distress but obvious discomfort. Found standing with the aid of a cane next to the hospital bed. Alert and oriented x4. Answered all questions appropriately and completely. Speech was non-labored, non-pressured. Cardiovascular / Chest: Regular rate and regular rhythm. No murmur, rubs, clicks , or gallops. Peripheral pulses: radial pulses full. Respiratory: Breathing unlabored. Equal chest rise and fall. Clear to auscultation bilaterally. No stridor, no wheezing, no rhonchi. Gastrointestinal: abdomen is diffusely tender without rebound or guarding. Post op site to LUQ that is packed and covered with dry dressing. Bandages taken down and revealed pink well perfused tissue without purulence, erythema, or garcia watery discharge. No obvious tunneling. Neuro: Alert and oriented. Moving all four extremities spontaneously. Skin: Globally, warm and dry. Psych: Affect: appropriate. Mood: normal. MDM: *Reviewed vital signs, nursing notes, and prior visit documentation (if available). 38 y/o female presenting with diffuse abdominal pain three days s/p colostomy reversal. Denies infectious symptoms. Afebrile. Vitals unremarkable for hypotension or tachycardia. Physical exam as described above. No obvious signs of post-op site infection. CBC unremarkable for leukocytosis. CMP unremarkable for significant electrolyte derangement, LFT elevation, or renal dysfunction. Lipase not elevated. Will obtain CTAP with IV and PO contrast to evaluate for intra abdominal abscess versus anastomosis leak. Pt give morphine, zofran, and IVF for symptom relief. Pt signed out to attending Dr. Huerta after he was verbally appraised of the pts HPI, current ED course, and plan of management. Will f/u on pending abdominal CT. Phil Vasquez M.D., PGY2 Emergency Medicine Resident Past History - Past Medical History Allergies/Adverse Reactions: Allergies Allergy/AdvReac Type Severity Reaction Status Date / Time No Known Allergies Allergy Verified 04/09/19 03:03 Home Medications: Ambulatory Orders Albuterol Sulfate Inhaler - [Ventolin HFA Inhaler -] 1 - 2 inh PO Q4H #1 inhaler 01/25/19 Azithromycin [Zithromax -] 250 mg PO UTDICT #6 tab 01/25/19 predniSONE [Deltasone -] 20 mg PO BID #8 tablet 01/25/19 Anemia: Yes Asthma: No Cancer: Yes (cervical metastatic to L ovary,tube and colon) Cardiac Disorders: No CVA: No COPD: No CHF: No Dementia: No Diabetes: No GI Disorders: No Disorders: No HTN: No Hypercholesterolemia: No Liver Disease: No Seizures: No Thyroid Disease: No - Surgical History Abdominal Surgery: Yes (CALIXTO) Appendectomy: No Cardiac Surgery: No Cholecystectomy: No GI Surgery: Yes (COLOSTOMY) Lung Surgery: No Neurologic Surgery: No Orthopedic Surgery: No - Reproductive History Cervical CA: Yes - Immunization History Immunization Up to Date: Yes - Suicide/Smoking/Psychosocial Hx Smoking History: Never smoked Have you smoked in the past 12 months: No Hx Alcohol Use: No Drug/Substance Use Hx: No Substance Use Type: None Hx Substance Use Treatment: No *Physical Exam - Vital Signs Last Vital Signs Temp Pulse Resp BP Pulse Ox 98.1 F 73 17 122/52 L 99 04/09/19 02:22 04/09/19 02:22 04/09/19 02:22 04/09/19 02:22 04/09/19 02:22 ED Treatment Course - LABORATORY CBC & Chemistry Diagram: 04/09/19 05:10 04/09/19 05:10 *DC/Admit/Observation/Transfer Diagnosis at time of Disposition: Abdominal pain - Discharge Dispostion Condition at time of disposition: Fair - Referrals Referrals: Ernesto De La Garza MD [Primary Care Provider] - - Patient Instructions - Post Discharge Activity
[2019-04-09] MEDS ORDERED: ONDANSETRON 4 MG/2 ML VIAL IVPUSH ONE ×2 (04:52→09:41)
[2019-04-09] MEDS ORDERED: morphine CARPU-JECT 4 MG/1 ML DISP.SYRIN IVPUSH ONE ×2 (04:52→09:41)
[2019-04-09] MEDS ORDERED: LACTATED RINGERS SOLUTION 1,000 ML/1,000 ML INFUS.BAG IV SCH (05:00)
[2019-04-09] MEDS ORDERED: morphine SULFATE 4 MG/ML VIAL ONE ×2 (05:15→09:44)
[2019-04-09] MEDS ORDERED: ONDANSETRON 4 MG/2 ML VIAL ONE ×2 (05:15→09:44)
[2019-04-09 05:26] LABS: BASO % 0.4 % (0-2.0); EOS % 2.3 % (0-4.5); HEMATOCRIT 34.7 % (32.4-45.2); HEMOGLOBIN 11.9 GM/dL (10.7-15.3); MCH 31.4 pg (25.7-33.7); MCHC 34.4 g/dl (32.0-36.0); MEAN CELL VOLUME 91.2 fl (80-96); MEAN PLT VOLUME 7.6 fl (7.5-11.1); MONO % 7.4 % (3.8-10.2); NEUT % 66.9 % (42.8-82.8); PLATELET COUNT 302 K/MM3 (134-434); RBC 3.81 M/mm3 (3.60-5.2); RDW 13.1 % (11.6-15.6); WHITE BLOOD COUNT 5.9 K/mm3 (4.0-10.0)
[2019-04-09 05:46] LABS: ALBUMIN 3.6 g/dl (3.4-5.0); BILIRUBIN,TOTAL 0.2 mg/dL (0.2-1); BLOOD UREA NITROGEN 16.9 mg/dL (7-18); CALCIUM 9.3 mg/dL (8.5-10.1); CREATININE 0.9 mg/dL (0.55-1.3); POTASSIUM 3.7 mmol/L (3.5-5.1); TOT PROT 7.4 g/dl (6.4-8.2)
--- NOTE | 2019-04-09 06:03 | PDOC ---
Documentation entered by Shanon Dotson SCRIBE, acting as scribe for Brittany Green DO. Brittany Green DO: This documentation has been prepared by the Nila carrasquillo Adrianna, SCRIBE, under my direction and personally reviewed by me in its entirety. I confirm that the documentation accurately reflects all work, treatment, procedures, and medical decision making performed by me. Attending Attestation - Resident Resident Name: Phil Vasquez - ED Attending Attestation I have performed the following: I have examined & evaluated the patient, The case was reviewed & discussed with the resident, I agree w/resident's findings & plan - HPI HPI: The patient is a 38 year old female, with a significant PMH of cervical cancer with metastasis to her left ovary/Fallopian tube/colon (s/p CALIXTO and colostomy reversal 2 days ago), who presents to the ED for evaluation of abdominal pain for. Patient endorses diffuse abdominal pain, worse at the LLQ. Patient is s/p colostomy reversal 2 days ago, but denies any pain or purulence at the incision site. Allergies: NKA, NKDA Surgical History: CALIXTO, hemicolectomy with colostomy bag Social History: Denies EtOH, tobacco, or illicit drug use PCP: Dr. De La Garza - Physicial Exam PE: Agree with resident exam - Medical Decision Making 04/09/19 05:53 38-year-old female with abdominal pain status post reversal of colostomy several days ago Plan for CT scan of the abdomen and pelvis to further evaluate status of anastomosis Case signed out to day shift
[2019-04-09] MEDS ORDERED: LACTATED RINGERS SOLUTION 1,000 ML/1,000 ML INFUS.BAG IV STA (09:29)
--- NOTE | 2019-04-09 11:50 | PDOC ---
*Physical Exam - Vital Signs Last Vital Signs Temp Pulse Resp BP Pulse Ox 98.1 F 70 18 131/59 L 99 04/09/19 02:22 04/09/19 06:51 04/09/19 06:51 04/09/19 06:51 04/09/19 06:51 - Physical Exam Comments: 04/09/19 11:46 Known 38-year-old female status post reversal of colostomy [address] [facility], [place] presents with severe abdominal pain. CT shows postoperative changes, air and fluid within the abdominal cavity which may be post operative in nature. Thickened terminal and proximal ileal loops and noted which may be related to radiation therapy the patient received previously. I discussed the case with Dr. Kim of [facility], [place] who requested patient be transferred for evaluation of a possible anastomotic leak [facility] [place]. Patient consented to transfer ED Treatment Course - LABORATORY CBC & Chemistry Diagram: 04/09/19 05:10 04/09/19 05:10 - ADDITIONAL ORDERS Additional order review: Laboratory Results 04/09/19 04/09/19 05:10 05:10 Sodium 139 Potassium 3.7 Chloride 104 Carbon Dioxide 28 Anion Gap 7 L BUN 16.9 Creatinine 0.9 Est GFR (CKD-EPI)AfAm 95.34 Est GFR (CKD-EPI)NonAf 82.26 Random Glucose 113 H Calcium 9.3 Total Bilirubin 0.2 AST 11 L ALT 25 Alkaline Phosphatase 79 Total Protein 7.4 Albumin 3.6 Lipase 66 L 04/09/19 05:10 RBC 3.81 MCV 91.2 MCHC 34.4 RDW 13.1 MPV 7.6 Neutrophils % 66.9 Lymphocytes % 23.0 Monocytes % 7.4 Eosinophils % 2.3 D Basophils % 0.4 - Medications Given in the ED: ED Medications Discontinued Medications Generic Name Dose Route Start Last Admin Trade Name Freq PRN Reason Stop Dose Admin Lactated Ringer's 1,000 ml in 1,000 mls @ 1,000 mls/hr 04/09/19 09:29 09:56 Lactated Ringers Solution IV 04/09/19 10:28 1,000 mls/hr ONCE STA Administration Morphine Sulfate 4 mg 04/09/19 04:52 04/09/19 05:30 Morphine Injection - IVPUSH 04/09/19 04:53 4 mg ONCE ONE Administration Morphine Sulfate 4 mg 04/09/19 09:41 04/09/19 09:48 Morphine Injection - IVPUSH 04/09/19 09:42 4 mg ONCE ONE Administration Ondansetron HCl 4 mg 04/09/19 04:52 04/09/19 05:30 Zofran Injection IVPUSH 04/09/19 04:53 4 mg ONCE ONE Administration Ondansetron HCl 4 mg 04/09/19 09:41 04/09/19 09:48 Zofran Injection IVPUSH 04/09/19 09:42 4 mg ONCE ONE Administration *DC/Admit/Observation/Transfer Diagnosis at time of Disposition: Abdominal pain Qualifiers: Abdominal location: generalized Qualified Code(s): R10.84 - Generalized abdominal pain Post-operative complication Qualifiers: Surgical complication system/body Area: digestive system Surgical complication type: unspecified Procedure type: digestive system Qualified Code(s): K91.89 - Other postprocedural complications and disorders of digestive system - Discharge Dispostion Disposition: TRANSFER ACUTE CARE/OTHER HOSP Condition at time of disposition: Fair - Referrals Referrals: Ernesto De La Garza MD [Primary Care Provider] - - Patient Instructions - Post Discharge Activity - Transfer to Acute Care Facility Receiving Facility: [facility], [place] Accepting Physician:: Dr. cobb/Dr. Kim Transfer comment: 04/09/19 11:49 patient accepted for transfer to ER by Dr. Cobb.
[2019-04-09 13:49] VITALS: BP 110/65; PULSE 69; TEMP 98
== END 2019-04-09 13:48 | disposition short-term general hospital (02) ==
LOC: JER 02:22
PROC: 3E033NZ Introduction of Analgesics, Hypnotics, Sedatives into Peripheral Vein, Percutaneous Approach (ICD-10-PCS; principal; 2019-04-09)
PROC: 3E0337Z Introduction of Electrolytic and Water Balance Substance into Peripheral Vein, Percutaneous Approach (ICD-10-PCS; 2019-04-09)
PROC: 3E033GC Introduction of Other Therapeutic Substance into Peripheral Vein, Percutaneous Approach (ICD-10-PCS; 2019-04-09)
DX: R10.9 Unspecified abdominal pain (principal); C53.9 Malignant neoplasm of cervix uteri, unspecified; C78.5 Secondary malignant neoplasm of large intestine and rectum; C79.60 Secondary malignant neoplasm of unspecified ovary; C79.82 Secondary malignant neoplasm of genital organs; Z90.710 Acquired absence of both cervix and uterus
CPT/HCPCS: 36415; 74177-TC; 80053; 83690; 85025; 96361; 96374; 96375; 99285-25; Q9967